=== PATIENT | female | born 1940 | race Caucasian/White ===

== ENCOUNTER 2024-01-22 22:29 | Emergency (ER) | payer MEDICARE, OTHER, SELFPAY ==
[2024-01-22 22:30] VITALS: BMI 40.9
[2024-01-22 22:33] VITALS: BP 159/79
[2024-01-23] VITALS (9 sets, daily range): BP systolic 124–150; BP diastolic 65–110
[2024-01-23 02:13] LABS: % Basophils 0.7 % (0-2); % Eosinophils 0.3 % (0-6); % Immature Granulocytes 0.4 % (0-0.5); % Lymphocytes 22.3 % (20.5-51.1); % Monocytes 12.4 % (1.7-9.3); % Neutrophils 63.9 % (42.2-75.2); Absolute Basophils 0.1 10^3/uL (0-0.2); Absolute Lymphocytes 1.6 10^3/uL (1.2-3.4); Absolute Monocytes 0.9 10^3/uL (0.1-0.6); Absolute Neutrophils 4.6 10^3/uL (1.4-6.5); Hematocrit 34.7 % (37.0-47.0); Hemoglobin 10.6 g/dL (12.0-16.0); Mean Corp Hgb Conc. 30.5 g/dL (33.0-37.0); Mean Corpuscular Hgb 26.2 pg (27.0-31.0); Mean Corpuscular Volume 85.9 fL (81.0-99.0); Mean Platelet Volume 9.5 fL (7.4-10.4); Nucleated Red Blood Cells % 0 %; Platelet Count 264 10^3/uL (130-400); Red Blood Cell Count 4.04 10^6/uL (4.20-5.40); Red Cell Dist. Width 20.2 % (11.5-14.5); White Blood Cell Count 7.2 10^3/uL (4.8-10.8)
[2024-01-23 02:35] LABS: NT-proBNP 298 pg/ml
[2024-01-23 03:44] LABS: ALT (SGPT) 13 U/L (0-35); AST (SGOT) 19 U/L (14-36); Albumin 3.3 g/dl (3.5-5.0); Alkaline Phosphatase 84 U/L (38-126); Blood Urea Nitrogen 25 mg/dl (7-17); Calcium 8.3 mg/dl (8.4-10.2); Chloride 94 mmol/L (98-107); Estimated Creatinine Clearance 29 ml/min; Glucose 91 mg/dl (70-99); Sodium 139 mmol/L (135-145); Total Bilirubin 0.5 mg/dl (0.2-1.3); Total Protein 5.7 g/dl (6.3-8.2)
[2024-01-23 03:53] LABS: Carbon Dioxide 36 mmol/L (22-30)
--- NOTE | 2024-01-23 04:14 | ED.GENMED ---
History of Present Illness
<DEEJAY Quinonez - Last Filed: 01/23/24 22:57>
General
Chief Complaint: Swelling
Source: patient
Exam Limitations: dementia
Time Seen by Provider: 01/23/24 03:35
Nursing documentation reviewed up to this point in time: agreed with
Travel History
Have you had any contact with someone who has COVID-19?: No
Do you have any symptoms of coronavirus? Fever > 100 degrees, chills, cough, shortness of breath, sore throat, loss of taste or smell, muscle aches, or headache?: No
History of Present Illness
History of Present Illness:
patient is a 83 y/o female with PMH of dementia and CHF presenting for a 3lb weight gain over 24 hours. Patient admits that LE swelling has gotten worse over the last few weeks along with leg erythema. patient denies CP, SOB, MORALES, abdominal pain, or
N/V/D/C. Patient is not a reliable historian.
Past History
<DEEJAY Quinonez - Last Filed: 01/23/24 22:57>
Past History
ED Past Medical History: Asthma, CAD, GERD, HTN, Hypercholesterolemia, NIDDM, [place], Hypothyroidism and Other (melanoma,fibromyalgia, skin CA on face removed)
ED Past Surgical History: Orthopedic (Total knee surgery, right and left, carpal full release right and left, rotator cuff repair on the right) and Other (melanoma resection, and umbilical hernia repair, right ant. chest port)
Social History
Tobacco: Non-smoker
Alcohol: Occasional
Drug: None
Personal:
Living: correction
Employment: Employed
Review of Systems
<DEEJAY Quinonez - Last Filed: 01/23/24 22:57>
Review of Systems
Unable to obtain full review of systems at this time due to: dementia
Constitutional: Reports weight gain
Respiratory: Reports no symptoms
Cardiac: Reports no symptoms
ABD/GI: Reports no symptoms
Musculoskeletal: Reports edema
Skin: Reports other (LE redness)
Phy Exam
<DEEJAY Quionnez - Last Filed: 01/23/24 22:57>
Physical Exam
Physical Exam:
swelling to B/L LE
Cardiovascular Exam
Cardiovascular Exam: other (edema b/l LE )
Pulmonary Exam
Pulmonary Exam: other (cough and SOB )
Skin Exam
Skin Exam: erythema, tenderness, warmth and other (edema )
Scores
<DEEJAY Quinonez - Last Filed: 01/23/24 22:57>
Heart Failure Risk
Heart Failure Risk Score: Yes
History of Stroke or TIA: No
History of intubation for respiratory distress: No
Heart rate on ED arrival >/= 110: No
SaO2 <90% on arrival on room air: No
Troponin I or T elevated to [place] Level (0.4mg/dL): No
NT-proBNP >/=5,000ng/L (5,000pg/ml): No
HF Risk Score: 2
Admission Status: MEDIUM RISK 9.2% Consider observation or discharge to home with homecare & f/u visit to PCP/Doffer, or SNF for treatment
<Jeff Smith DO - Last Filed: 01/23/24 06:49>
Heart Failure Risk
HR >/=110 during 3min walk test (or too ill to perform test): No
ECG has acute ischemic changes: No
Urea >/=12mmol/L (BUN 33.6mg/dL): No
Serum CO2>/=35mmol/L: Yes
Course
<DEEJAY Quinonez - Last Filed: 01/23/24 22:57>
Orders/Labs/Results
Orders:
Orders
01/22/24 22:35
Complete Blood Count/With Diff Urgent
NT-proBNP Urgent
01/22/24 22:36
EKG- Treatment ONCE
01/23/24 01:02
Electrocardiogram (*1) Stat
Comment: ALREADY DONE IN ED
01/23/24 02:06
Troponin I Urgent
Comment: ADD ON
01/23/24 03:21
Comprehensive Metabolic Panel Urgent
Comment: REDRAW
01/23/24 04:22
CR Chest - 2 Views Urgent
Comment:
Reason For Exam: chf
01/23/24 06:41
Torsemide [Demadex] 10 mg PO NOW STA
01/23/24 06:42
Potassium Chloride 10% Elixir [KCl Elixir] 40 meq PO NOW STA
01/23/24 06:49
Add On- LAB Urgent
Tests Added?: troponin
01/23/24 07:20
Torsemide [Demadex] 10 mg PO NOW STA
Abnormal Lab Results
01/23/24 01/23/24
02:06 03:21
RBC 4.04 L 10^6/uL
(4.20-5.40)
Hgb 10.6 L g/dL
(12.0-16.0)
Hct 34.7 L %
(37.0-47.0)
MCH 26.2 L pg
(27.0-31.0)
MCHC 30.5 L g/dL
(33.0-37.0)
RDW 20.2 H %
(11.5-14.5)
Absolute Monos (auto) 0.9 H 10^3/uL
(0.1-0.6)
Monocytes % 12.4 H %
(1.7-9.3)
Potassium 3.0 L mmol/L
(3.5-5.1)
Chloride 94 L mmol/L
(98-107)
Carbon Dioxide 36 H mmol/L
(22-30)
BUN 25 H mg/dl
(7-17)
Creatinine 1.4 H mg/dL
(0.6-1.0)
Calcium 8.3 L mg/dl
(8.4-10.2)
Total Protein 5.7 L g/dl
(6.3-8.2)
Albumin 3.3 L g/dl
(3.5-5.0)
01/23/24 02:06
01/23/24 03:21
Vital Signs
Initial and Last Documented VS:
Initial Vital Signs
Temp Pulse Resp BP Pulse Ox
98.2 F 77 24 159/79 94
01/22/24 22:33 01/22/24 22:33 01/22/24 22:33 01/22/24 22:33 01/22/24 22:33
Last Documented Vital Signs
Temp Pulse Resp BP Pulse Ox
97.6 F 80 16 150/66 97
01/23/24 07:47 01/23/24 08:15 01/23/24 07:47 01/23/24 08:00 01/23/24 08:15
<Jeff Smith, DO - Last Filed: 01/23/24 06:49>
Orders/Labs/Results
Orders:
Orders
01/22/24 22:35
Complete Blood Count/With Diff Urgent
NT-proBNP Urgent
01/22/24 22:36
EKG- Treatment ONCE
01/23/24 01:02
Electrocardiogram (*1) Stat
Comment: ALREADY DONE IN ED
01/23/24 02:06
Troponin I Urgent
Comment: ADD ON
01/23/24 03:21
Comprehensive Metabolic Panel Urgent
Comment: REDRAW
01/23/24 04:22
CR Chest - 2 Views Urgent
Comment:
Reason For Exam: chf
01/23/24 06:41
Torsemide [Demadex] 10 mg PO NOW STA
01/23/24 06:42
Potassium Chloride 10% Elixir [KCl Elixir] 40 meq PO NOW STA
01/23/24 06:49
Add On- LAB Urgent
Tests Added?: troponin
01/23/24 07:20
Torsemide [Demadex] 10 mg PO NOW STA
Abnormal Lab Results
01/23/24 01/23/24
02:06 03:21
RBC 4.04 L 10^6/uL
(4.20-5.40)
Hgb 10.6 L g/dL
(12.0-16.0)
Hct 34.7 L %
(37.0-47.0)
MCH 26.2 L pg
(27.0-31.0)
MCHC 30.5 L g/dL
(33.0-37.0)
RDW 20.2 H %
(11.5-14.5)
Absolute Monos (auto) 0.9 H 10^3/uL
(0.1-0.6)
Monocytes % 12.4 H %
(1.7-9.3)
Potassium 3.0 L mmol/L
(3.5-5.1)
Chloride 94 L mmol/L
(98-107)
Carbon Dioxide 36 H mmol/L
(22-30)
BUN 25 H mg/dl
(7-17)
Creatinine 1.4 H mg/dL
(0.6-1.0)
Calcium 8.3 L mg/dl
(8.4-10.2)
Total Protein 5.7 L g/dl
(6.3-8.2)
Albumin 3.3 L g/dl
(3.5-5.0)
01/23/24 02:06
01/23/24 03:21
Vital Signs
Initial and Last Documented VS:
Initial Vital Signs
Temp Pulse Resp BP Pulse Ox
98.2 F 77 24 159/79 94
01/22/24 22:33 01/22/24 22:33 01/22/24 22:33 01/22/24 22:33 01/22/24 22:33
Last Documented Vital Signs
Temp Pulse Resp BP Pulse Ox
97.6 F 80 16 150/66 97
01/23/24 07:47 01/23/24 08:15 01/23/24 07:47 01/23/24 08:00 01/23/24 08:15
<DEEJAY Quinonez - Last Filed: 01/23/24 22:57>
MDM/Problems Addressed
Differential Diagnosis Includes:
CHF exacerbation
nephrotic syndrome
CKD
MDM/Problems Addressed:
swelling x 1 month
Chronic conditions affecting care: Other (CHF and Dementia )
<DEEJAY Quinonez - Last Filed: 01/23/24 22:57>
*Critical Care Note
Total Time (30-74mins, 75-104mins- exclusive of procedures): Not Applicable
ED Attending Note
<DEEJAY Quinonez - Last Filed: 01/23/24 22:57>
-
Portions of this chart may have been created with voice recognition software.� Occasional wrong word or��sound alike� substitutions may have occurred due to the inherent limitations of voice recognition software.
<Jeff Smith DO - Last Filed: 01/23/24 06:49>
ED Attending Note
Patient seen and examined by attending physician: Yes
I performed the substantive portion of visit, reviewed & personally made and approve the management plan that is documented in note by myself or ZENAIDA.: Yes
ED Attending Note:
Pleasant 83-year-old female that presents with 3 pound weight gain for the last 24 hours. Patient does have a history of dementia so history is limited. She is a resident of [facility] who sent her in for evaluation. Patient does have
chronic peripheral vascular disease and edema in the bilateral lower extremities. Patient states that she has no pain. She reports no chest pain shortness of breath or abdominal pain. She states that she is no other symptoms. Patient was seen in
conjunction with the PA student. I have reviewed and agree with the history and treatment plan presented. On my independent physical exam, patient is awake, and at baseline. Able to answer some questions. Lower extremities are erythematous and
edematous. There is no signs of new cellulitis.
White blood cell count is normal.
Patient to be discharged back to [facility]. She has no complaints. Her oxygen saturation is greater than 96% on room air.
Discharge Plan
Departure
Patient Disposition: Long Term/SNF
Date of Disposition: 01/23/24
Time of Disposition: 06:48
Condition: Fair
Discharge Problem:
CKD (chronic kidney disease), stage III, Edema
Prescriptions:
No Action
metoprolol succinate 100 MG tablet extended release 24 hr
100 mg PO HS
atorvastatin 20 MG tablet
20 mg PO HS
allopurinol 100 MG tablet
100 mg PO DAILY
gabapentin 300 MG capsule
600 mg PO HS
gabapentin 300 MG capsule
300 mg PO DAILY@1400
albuterol sulfate 1 PUFF HFA aerosol inhaler
2 puff inhalation R Q6HPRN PRN (Reason: sob/wheezing)
loperamide 2 MG capsule
2 mg PO [id number] PRN (Reason: diarrhea)
melatonin 3 MG tablet
9 mg PO HS
acetaminophen [Tylenol Extra Strength] 500 MG tablet
1,000 mg PO TID
magnesium hydroxide 30 ML suspension
30 ml PO DAILYPRN PRN (Reason: if no bm in 2 days)
bisacodyl 10 MG suppository
10 mg GA DAILYPRN PRN (Reason: if no bm on 3rd day)
insulin lispro [Humalog KwikPen Insulin] 100 UNIT/ML insulin pen
0 units SC AC
Rx Instructions:
Sliding scale: 150-200 = 2 units; 201-250 = 4 units; 251-300 = 6 units; 301-350 = 8 units; 351-400 = 10 units
levothyroxine 112 MCG tablet
112 mcg PO DAILY@07
insulin glargine [Lantus Solostar U-100 Insulin] 300 UNITS/3 ML insulin pen
6 units SC HS Qty: 0 0RF
torsemide 20 mg Tablet
20 mg PO DAILY
miconazole nitrate [Desenex] 2 % Powder
1 applic TOPICAL BIDPRN PRN (Reason: skin rash)
Aquaphor Ointment
1 applic TOPICAL [id number] PRN (Reason: b/l lower extremities dry skin)
Rx Instructions:
apply to B/L extremities
famotidine 20 mg Tablet
20 mg PO DAILY
diphenhydramine HCl 25 mg Tablet
25 mg PO [id number] PRN (Reason: allergies)
diclofenac sodium 1 % Gel
2 g TOPICAL Q6HPRN PRN (Reason: right hip)
cholecalciferol (vitamin D3) 1,250 mcg (50,000 unit) Tablet
1,250 mcg PO TH@08
potassium chloride 20 mEq Tablet Extended Release
20 meq PO DAILY
Lactobacillus acidophilus 1 EACH tablet
1 ea PO DAILY
hydrocortisone [Preparation H Hydrocortisone] 1 % Cream
1 applic TOPICAL Q6HPRN PRN (Reason: hemorrhiods)
Calazime Paste
1 applic topical BID
Reguloid 51.7% Powder
0.5 tbsp PO DAILY
prednisone 10 mg tablets,dose pack
10 mg PO DAILY
miconazole nitrate [Miconazorb AF] 2 % Powder
1 applic topical BID Qty: 0 0RF
metronidazole 500 mg Tablet
500 mg PO TID 1 Days Qty: 0 0RF
cefdinir 300 mg Capsule
300 mg PO Q12 1 Days Qty: 2 0RF
oxycodone 5 MG tablet
5 mg PO Q4HPRN PRN (Reason: moderate pain) Qty: 12 0RF
Referrals:
Jeff Hu CRNP [Family Provider] -
Interventions
Interventions:
*Risk Screen - Suicide Last Done: 01/22/24 22:33
*General Assessment Last Done: 01/22/24 22:33
*Neglect/Abuse Screening Last Done: 01/22/24 22:33
ED- Fall Risk Assessment Last Done: 01/23/24 07:47
*ED COVID-19 Vaccine History Last Done: 01/23/24 07:47
*Nursing Disposition Last Done: 01/23/24 08:40
ED- Cardiac Assessment Last Done: 01/23/24 07:47
ED- Pulmonary Assessment Last Done: 01/23/24 07:47
ED-Skin Assessment Last Done: 01/23/24 07:47
Discharge Date and Time
Discharge Date/Time: 01/23/24 08:40
[2024-01-23 07:21] LABS: Troponin I < 0.012 ng/ml
[2024-01-23] MEDS: KCL ELIXIR 40 MEQ PO (07:38)
[2024-01-23] MEDS: DEMADEX 10 MG PO (07:38)
--- NOTE | 2024-01-23 07:57 | EDRN ---
the pt is resting in stretcher in the lowest position, side rails up x2, call caraballo within reach, HOB elevated, no c/o chest pain, no c/o SOB, VS WNL, film processing shift supervisor nurse stated that while the pt was sleeping she desatted to 89-90% and placed the pt on
1L NC, this RN titrated [address] Smith was notified, the pts Sp02 is 97% on RA, no s/s of distress, PIV's discontinued and IV team was called and at the pts bedside to removed RCW Port, pt has limb alert on LUE, awaiting for transport to
arrive for the pt, will continue to monitor the pt closely
--- NOTE | 2024-01-23 08:39 | EDRN ---
this RN attempted to call verbal report to [facility] at [phone] and there was no answer, verbal report given to [facility] staff, discharge papers sent with the pt
== END 2024-01-23 08:40 ==
LOC: EMR 22:29
PROVIDERS: Emergency Medicine; EMERGENCY PHYSICIAN Student in an Organized Health Care Education/Training Program; FAMILY PHYSICIAN Nurse Practitioner Family
DX: N18.30 Chronic kidney disease, stage 3 unspecified (principal); R60.0 Localized edema; I50.9 Heart failure, unspecified; F03.90 Unspecified dementia, unspecified severity, without behavioral disturbance, psychotic disturbance, mood disturbance, and anxiety
CPT/HCPCS: 99285; 71046; 80053; 83880; 84484; 85025; 93005

== ENCOUNTER → 2024-01-31 10:47 | Outpatient (REF) | payer MEDICARE, OTHER, SELFPAY ==
[2024-01-31 11:38] LABS: Hematocrit 33.5 % (37.0-47.0); Hemoglobin 9.8 g/dL (12.0-16.0); Mean Corp Hgb Conc. 29.3 g/dL (33.0-37.0); Mean Corpuscular Hgb 26.3 pg (27.0-31.0); Mean Corpuscular Volume 90.1 fL (81.0-99.0); Mean Platelet Volume 11.1 fL (7.4-10.4); Platelet Count 264 10^3/uL (130-400); Red Blood Cell Count 3.72 10^6/uL (4.20-5.40); Red Cell Dist. Width 19.8 % (11.5-14.5)
[2024-01-31 12:29] LABS: ALT (SGPT) 13 U/L (0-35); AST (SGOT) 21 U/L (14-36); Albumin 3.1 g/dl (3.5-5.0); Alkaline Phosphatase 74 U/L (38-126); Blood Urea Nitrogen 22 mg/dl (7-17); Calcium 8.5 mg/dl (8.4-10.2); Carbon Dioxide 35 mmol/L (22-30); Chloride 96 mmol/L (98-107); Glucose 86 mg/dl (70-99); Potassium 3.6 mmol/L (3.5-5.1); Sodium 137 mmol/L (135-145); Total Bilirubin 0.4 mg/dl (0.2-1.3); Total Protein 5.5 g/dl (6.3-8.2); eGFR 41.31
== END ==
LOC: OLABWHC 10:47
PROVIDERS: ATTENDING PHYSICIAN Family Medicine
DX: A41.9 Sepsis, unspecified organism (principal); E87.6 Hypokalemia; E11.9 Type 2 diabetes mellitus without complications
CPT/HCPCS: 36415; 80053; 85027

== ENCOUNTER 2024-03-06 22:38 | Emergency (ER) | payer MEDICARE, OTHER, SELFPAY ==
[2024-03-06 22:41] VITALS: BP 111/80
[2024-03-06 22:42] VITALS: BP 111/80; BMI 39.6
[2024-03-06 22:59] LABS: % Basophils 0.2 % (0-2); % Eosinophils 0.1 % (0-6); % Immature Granulocytes 0.4 % (0-0.5); % Lymphocytes 14.4 % (20.5-51.1); % Monocytes 9.1 % (1.7-9.3); % Neutrophils 75.8 % (42.2-75.2); Absolute Immature Granulocytes 0.1 10^3/uL (0-0.05); Absolute Lymphocytes 1.8 10^3/uL (1.2-3.4); Absolute Monocytes 1.2 10^3/uL (0.1-0.6); Absolute Neutrophils 9.7 10^3/uL (1.4-6.5); Hematocrit 37.2 % (37.0-47.0); Mean Corp Hgb Conc. 29.6 g/dL (33.0-37.0); Mean Corpuscular Hgb 28.1 pg (27.0-31.0); Mean Corpuscular Volume 94.9 fL (81.0-99.0); Mean Platelet Volume 9.7 fL (7.4-10.4); Nucleated Red Blood Cells % 0 %; Platelet Count 261 10^3/uL (130-400); Red Blood Cell Count 3.92 10^6/uL (4.20-5.40); Red Cell Dist. Width 18.2 % (11.5-14.5); White Blood Cell Count 12.8 10^3/uL (4.8-10.8)
[2024-03-06 23:01] LABS: Urine Albumin Negative (Neg - Trace); Urine Bilirubin Negative (Negative); Urine Character Clear (Clear); Urine Color Yellow; Urine Glucose Negative (Negative); Urine Ketone Negative (Negative); Urine Leukocyte 2+ (Negative); Urine Nitrite Negative (Negative); Urine Occult Blood 1+ (Negative); Urine Urobilinogen Negative (Neg - 1+)
[2024-03-06 23:08] LABS: Urine Squamous Cell 0-2 /LPF (Few)
[2024-03-06 23:09] LABS: Urine Bacteria Few (Negative)
[2024-03-06 23:10] LABS: Urine White Cell 50-60 /HPF (0-5)
[2024-03-06 23:19] LABS: ALT (SGPT) 20 U/L (0-35); AST (SGOT) 22 U/L (14-36); Albumin 3.5 g/dl (3.5-5.0); Alkaline Phosphatase 112 U/L (38-126); Blood Urea Nitrogen 25 mg/dl (7-17); Calcium 8.3 mg/dl (8.4-10.2); Carbon Dioxide 33 mmol/L (22-30); Chloride 101 mmol/L (98-107); Estimated Creatinine Clearance 34 ml/min; Glucose 107 mg/dl (70-99); Potassium 3.4 mmol/L (3.5-5.1); Sodium 141 mmol/L (135-145); Total Bilirubin 0.5 mg/dl (0.2-1.3); Total Protein 6.1 g/dl (6.3-8.2); eGFR 50.48
--- NOTE | 2024-03-06 23:47 | ED.GENMED ---
Addendum entered and electronically signed by Masoud eDlgado PA-C 03/09/24 07:53:
Urine culture shows greater than 100,000 colony-forming units of gram-negative bacilli. On cefuroxime. Sensitivities pending
Original Note:
History of Present Illness
General
Chief Complaint: Change in Mental Status
Source: records and ambulance crew
Time Seen by Provider: 03/06/24 23:37
Travel History
Have you had any contact with someone who has COVID-19?: No
Do you have any symptoms of coronavirus? Fever > 100 degrees, chills, cough, shortness of breath, sore throat, loss of taste or smell, muscle aches, or headache?: No
History of Present Illness
History of Present Illness:
83-year-old female presenting to the emergency department for evaluation from [facility] due to reported mental status change. Patient with a history of dementia and is currently unable to provide me with any history. I attempted to
call [facility] for history but no one was answering the phone when I was calling. EMS reports same history as above.
Past History
Past History
ED Past Medical History: Asthma, CAD, GERD, HTN, Hypercholesterolemia, NIDDM, [place], Hypothyroidism and Other (melanoma,fibromyalgia, skin CA on face removed)
ED Past Surgical History: Orthopedic (Total knee surgery, right and left, carpal full release right and left, rotator cuff repair on the right) and Other (melanoma resection, and umbilical hernia repair, right ant. chest port)
Social History
Tobacco: Non-smoker
Alcohol: None
Drug: None
Personal:
Living: [facility]
Employment: Employed
Review of Systems
Review of Systems
All Other Systems: ROS reviewed and negative except as documented in HPI and ROS
Phy Exam
Physical Exam
Physical Exam:
GENERAL: Alert , in no apparent distress
EYE: conjunctiva clear
NECK: Supple
ENT: o/p clr, mmm.
CARDIAC: Regular rate and rhythm
LUNGS: Clear breath sounds bilaterally, no acute respiratory distress, no wheezes/rales/rhonchi
Abdomen: Soft, nontender, nondistended
NEUROLOGICAL: Alert and oriented to person and place but not time
SKIN: Warm and dry, skin intact.
MUSCULOSKELETAL: well perfused.
PSYCH: Normal and appropriate interaction.
Scores
Heart Failure Risk
Heart Failure Risk Score: Not Applicable
Heart Score for Chest Pain Patients
STEMI patient?: Not applicable
Withdrawal Assessment of Alcohol
Withdrawal Assessment Completed?: Not applicable
Course
Orders/Labs/Results
Orders:
Orders
03/06/24 22:41
Cardiac Monitoring- Treatment ONCE
03/06/24 22:47
CMP [Comprehensive Metabolic Panel] Urgent
Complete Blood Count/With Diff Urgent
Urinalysis Reflex To Culture Urgent
Date Specimen was Collected: 03/06/24
Time Specimen was Collected: 22:41
Urine Microscopic Reflex Cult Urgent
Urine Culture Urgent
CRYSTAL Source: U
Specimen Description:
Date Specimen was Collected: 03/06/24
Time Specimen was Collected: 22:41
03/06/24 23:55
Cefuroxime Axetil [Ceftin] 500 mg PO NOW STA
Abnormal Lab Results
03/06/24
22:47
WBC 12.8 H 10^3/uL
(4.8-10.8)
RBC 3.92 L 10^6/uL
(4.20-5.40)
Hgb 11.0 L g/dL
(12.0-16.0)
MCHC 29.6 L g/dL
(33.0-37.0)
RDW 18.2 H %
(11.5-14.5)
Abs Immat Gran (auto) 0.1 H 10^3/uL
(0-0.05)
Absolute Neuts (auto) 9.7 H 10^3/uL
(1.4-6.5)
Absolute Monos (auto) 1.2 H 10^3/uL
(0.1-0.6)
Neutrophils % 75.8 H %
(42.2-75.2)
Lymphocytes % 14.4 L %
(20.5-51.1)
Potassium 3.4 L mmol/L
(3.5-5.1)
Carbon Dioxide 33 H mmol/L
(22-30)
BUN 25 H mg/dl
(7-17)
Creatinine 1.1 H mg/dL
(0.6-1.0)
Glucose 107 H mg/dl
(70-99)
Calcium 8.3 L mg/dl
(8.4-10.2)
Total Protein 6.1 L g/dl
(6.3-8.2)
Ur Occult Blood Reflex 1+ A
(Negative)
Leukocyte Esterase Rfl 2+ A
(Negative)
Urine RBC 3-6 A /HPF
(0-2)
Urine WBC (Reflex) 50-60 A /HPF
(0-5)
Urine Bacteria (Reflex) Few A
(Negative)
03/06/24 22:47
03/06/24 22:47
Vital Signs
Initial and Last Documented VS:
Initial Vital Signs
BP
111/80
03/06/24 22:41
Last Documented Vital Signs
Temp Pulse Resp BP Pulse Ox
97.5 F 88 17 111/80 92
03/06/24 22:42 03/06/24 23:45 03/06/24 23:45 03/06/24 22:42 03/06/24 23:45
MDM/Problems Addressed
Differential Diagnosis Includes:
Dementia, urinary tract infection, pneumonia, viral etiology, electrolyte disturbance
MDM/Problems Addressed:
83-year-old female presenting the emergency department from [facility], known dementia with reported mental status change. Is unclear as to what exactly the mental status change is. Labs and urine were ordered from triage. Patient has
a mild leukocytosis with a leftward shift. Patient's urinalysis shows 2+ leukocytes and 50-60 WBCs likely signifying a urinary tract infection. Patient has 2 previous urine cultures on record here in 2022 with 1 growing Pseudomonas aeruginosa and
another growing E. coli and Proteus. I reviewed these culture reports and it appears patient is sensitive to cephalosporins so we will treat patient with a 10-day course of cefuroxime. First dose to be given tonight prior to discharge. I again
attempted to contact [facility] to discuss findings in the ER but no one picked up the phone so unable to leave report with nursing team. Patient to be transported back to [facility] this evening. She otherwise remained stable.
Chronic conditions affecting care: Neurological disorder
Acute Exacerbation and/or Progression of Chronic Illness: Neurological disorder
*Pulse Oximetry
Patient hypoxic: no
*Critical Care Note
Total Time (30-74mins, 75-104mins- exclusive of procedures): Not Applicable
Data Reviewed
Review of Other/Old Records Reveals: Labs and Records
Source: records
ED Attending Note
-
Portions of this chart may have been created with voice recognition software.� Occasional wrong word or��sound alike� substitutions may have occurred due to the inherent limitations of voice recognition software.
Discharge Plan
Departure
Patient Disposition: [facility]/SNF
Date of Disposition: 03/06/24
Time of Disposition: 23:47
Patient with high blood pressure during this ER visit?: No
Discharge Problem:
Acute UTI, CKD (chronic kidney disease)
Instructions: Urinary Tract Infection, Adult (DC)
Prescriptions:
New
cefuroxime axetil 500 mg tablet
500 mg PO BID Qty: 19 0RF
No Action
metoprolol succinate 100 MG tablet extended release 24 hr
100 mg PO HS
atorvastatin 20 MG tablet
20 mg PO HS
allopurinol 100 MG tablet
100 mg PO DAILY
gabapentin 300 MG capsule
600 mg PO HS
gabapentin 300 MG capsule
300 mg PO DAILY@1400
albuterol sulfate 1 PUFF HFA aerosol inhaler
2 puff inhalation R Q6HPRN PRN (Reason: sob/wheezing)
loperamide 2 MG capsule
2 mg PO [id number] PRN (Reason: diarrhea)
melatonin 3 MG tablet
9 mg PO HS
acetaminophen [Tylenol Extra Strength] 500 MG tablet
1,000 mg PO TID
magnesium hydroxide 30 ML suspension
30 ml PO HSPRN PRN (Reason: if no bm in 2 days)
bisacodyl 10 MG suppository
10 mg VA DAILYPRN PRN (Reason: if no bm on 3rd day)
insulin lispro [Humalog KwikPen Insulin] 100 UNIT/ML insulin pen
0 - 10 units SC AC
Patient Comments:
03/06/2024: Sliding scale: if 0-149= 0 units; 150-200 = 2 units; 201-250 = 4 units; 251-300 = 6 units; 301-350 = 8 units; 351-400 = 10 units
levothyroxine 112 MCG tablet
112 mcg PO DAILY@07
insulin glargine [Lantus Solostar U-100 Insulin] 300 UNITS/3 ML insulin pen
6 units SC HS Qty: 0 0RF
torsemide 20 mg Tablet
40 mg PO DAILY
famotidine 20 mg Tablet
20 mg PO DAILY
diphenhydramine HCl 25 mg Tablet
25 mg PO [id number] PRN (Reason: allergies)
diclofenac sodium 1 % Gel
4 g TOPICAL Q6HPRN PRN (Reason: right hip)
potassium chloride 20 mEq Tablet Extended Release
20 meq PO DAILY
hydrocortisone [Preparation H Hydrocortisone] 1 % Cream
1 applic TOPICAL Q6HPRN PRN (Reason: hemorrhiods)
Calazime Paste
1 applic topical BID
Patient Comments:
03/06/2024: apply to vaginal excoriation
Reguloid 51.7% Powder
0.5 tbsp PO DAILY
prednisone 10 mg tablets,dose pack
10 mg PO DAILY
oxycodone 5 MG tablet
5 mg PO Q4HPRN PRN (Reason: moderate pain) Qty: 12 0RF
mineral oil-hydrophil petrolat Ointment
1 applic TOPICAL BID
Patient Comments:
03/06/2024: apply to B/L LE
Fleet Enema 19-7 gram/118 mL Enema
118 ml VA DAILYPRN PRN (Reason: if no bm x 4 days)
nystatin 100,000 unit/gram Powder
1 applic TOPICAL [id number] PRN (Reason: rash)
Multiple Vitamin-Minerals Tablet
1 tab PO DAILY
Balmex Ointment
1 ea TOPICAL TID
Patient Comments:
03/06/2024: apply to sacrum and buttocks
cholecalciferol (vitamin D3) 125 mcg (5,000 unit) Tablet
125 mcg PO DAILY
acidophilus-pectin, citrus 7.5 mg (30 mill cell)-100 mg Capsule
1 cap PO DAILY
Interventions
Interventions:
*Risk Screen - Suicide Last Done: 03/06/24 22:42
*General Assessment Last Done: 03/06/24 22:42
*Neglect/Abuse Screening Last Done: 03/06/24 22:42
ED- Fall Risk Assessment Last Done: 03/06/24 23:48
*ED COVID-19 Vaccine History Last Done: 03/06/24 22:42
ED- Neurological Assessment Last Done: 03/06/24 23:48
ED- Cardiac Assessment Last Done: 03/06/24 23:48
Discharge Date and Time
Print Language: TANZANIAN
[2024-03-07] MEDS: CEFTIN 500 MG PO (00:19)
--- NOTE | 2024-03-07 01:00 | EDRN ---
Patient sleeping without and concerns, report given to the correction
--- NOTE | 2024-03-10 07:30 | ED.ADDNOTE ---
ED Addendum
ED Addendum
ED Addendum Note:
Urine culture finalized Proteus sensitive to the antibiotic she is on no treatment change required
== END 2024-03-07 01:56 ==
LOC: EMR 22:38
PROVIDERS: Emergency Medicine; EMERGENCY PHYSICIAN Emergency Medicine; FAMILY PHYSICIAN Family Medicine
DX: N39.0 Urinary tract infection, site not specified (principal); N18.9 Chronic kidney disease, unspecified; F03.90 Unspecified dementia, unspecified severity, without behavioral disturbance, psychotic disturbance, mood disturbance, and anxiety
CPT/HCPCS: 99283; 80053; 81003; 81015; 85025; 87077; 87086; 87186

== ENCOUNTER 2024-03-21 08:13 | Outpatient (RCR) | payer MEDICARE, OTHER, SELFPAY | END 2024-03-21 23:59 | disposition home or self-care (01) | LOC: RPT 08:13 | PROVIDERS: ATTENDING PHYSICIAN Family Medicine | DX: I89.0 Lymphedema, not elsewhere classified (principal); I87.313 Chronic venous hypertension (idiopathic) with ulcer of bilateral lower extremity; R26.2 Difficulty in walking, not elsewhere classified | CPT/HCPCS: 97163; 97530; 97760 ==

== ENCOUNTER → 2024-06-12 12:02 | Outpatient (REF) | payer MEDICARE, OTHER, SELFPAY ==
[2024-06-12 14:51] LABS: Hematocrit 31.2 % (37.0-47.0); Mean Corp Hgb Conc. 28.8 g/dL (33.0-37.0); Mean Corpuscular Hgb 26.3 pg (27.0-31.0); Mean Corpuscular Volume 91.2 fL (81.0-99.0); Mean Platelet Volume 10.2 fL (7.4-10.4); Platelet Count 317 10^3/uL (130-400); Red Blood Cell Count 3.42 10^6/uL (4.20-5.40); Red Cell Dist. Width 14.8 % (11.5-14.5); White Blood Cell Count 9.7 10^3/uL (4.8-10.8)
[2024-06-12 14:52] LABS: ALT (SGPT) 14 U/L (0-35); AST (SGOT) 17 U/L (14-36); Albumin 3.5 g/dl (3.5-5.0); Alkaline Phosphatase 98 U/L (38-126); Blood Urea Nitrogen 23 mg/dl (7-17); Calcium 8.9 mg/dl (8.4-10.2); Carbon Dioxide 34 mmol/L (22-30); Chloride 97 mmol/L (98-107); Glucose 93 mg/dl (70-99); HDL Cholesterol 51 mg/dl; LDL Cholesterol, Calculated 42 mg/dl; Potassium 3.4 mmol/L (3.5-5.1); Sodium 139 mmol/L (135-145); Total Bilirubin 0.3 mg/dl (0.2-1.3); Total Cholesterol 133 mg/dl (50-199); Total Protein 5.6 g/dl (6.3-8.2); Triglyceride 203 mg/dl (10-149); Very Low Density Lipoprotein 40 mg/dl (0-30); eGFR 37.56
[2024-06-12 15:07] LABS: Free T4 1.62 ng/dl (0.78-2.19)
[2024-06-12 15:20] LABS: TSH 0.06 uIU/ml (0.47-4.68)
== END ==
LOC: OLABWHC 12:02
PROVIDERS: ATTENDING PHYSICIAN Family Medicine
DX: I10 Essential (primary) hypertension (principal); I25.10 Atherosclerotic heart disease of native coronary artery without angina pectoris; E03.9 Hypothyroidism, unspecified; D60.9 Acquired pure red cell aplasia, unspecified
CPT/HCPCS: 80053; 80061; 84439; 84443; 85027

== ENCOUNTER → 2024-06-15 10:55 | Outpatient (REF) | payer MEDICARE, OTHER, SELFPAY ==
[2024-06-15 12:19] LABS: Blood Urea Nitrogen 31 mg/dl (7-17); Calcium 8.9 mg/dl (8.4-10.2); Carbon Dioxide 38 mmol/L (22-30); Chloride 98 mmol/L (98-107); Glucose 88 mg/dl (70-99); Potassium 3.9 mmol/L (3.5-5.1); Sodium 140 mmol/L (135-145); eGFR 37.56
== END ==
LOC: OLABWHC 10:55
PROVIDERS: ATTENDING PHYSICIAN Family Medicine
DX: E11.9 Type 2 diabetes mellitus without complications (principal); E87.6 Hypokalemia; N18.4 Chronic kidney disease, stage 4 (severe); E78.5 Hyperlipidemia, unspecified; D64.9 Anemia, unspecified; Z79.4 Long term (current) use of insulin; I10 Essential (primary) hypertension; E03.9 Hypothyroidism, unspecified
CPT/HCPCS: 80048

== ENCOUNTER → 2024-08-07 13:25 | Outpatient (REF) | payer MEDICARE, OTHER, SELFPAY ==
[2024-08-07 19:07] LABS: Urine Albumin Negative (Neg - Trace); Urine Bilirubin Negative (Negative); Urine Character Clear (Clear); Urine Color Yellow; Urine Glucose 3+ (Negative); Urine Ketone Negative (Negative); Urine Leukocyte Trace (Negative); Urine Nitrite Negative (Negative); Urine Occult Blood Negative (Negative); Urine Urobilinogen Negative (Neg - 1+)
[2024-08-07 19:16] LABS: Urine Bacteria Moderate (Negative); Urine Red Blood Cell 0-2 /HPF (0-2)
== END ==
LOC: OLABWPC 13:25
PROVIDERS: ATTENDING PHYSICIAN Family Medicine
DX: R31.9 Hematuria, unspecified (principal)
CPT/HCPCS: 81003; 81015; 87077; 87086; 87186

== ENCOUNTER → 2024-08-15 10:35 | Outpatient (REF) | payer MEDICARE, OTHER, SELFPAY ==
[2024-08-15 11:19] LABS: Hemoglobin 8.6 g/dL (12.0-16.0); Mean Corp Hgb Conc. 29.7 g/dL (33.0-37.0); Mean Corpuscular Hgb 23.6 pg (27.0-31.0); Mean Corpuscular Volume 79.7 fL (81.0-99.0); Mean Platelet Volume 11.5 fL (7.4-10.4); Platelet Count 267 10^3/uL (130-400); Red Blood Cell Count 3.64 10^6/uL (4.20-5.40); Red Cell Dist. Width 15.8 % (11.5-14.5); White Blood Cell Count 10.4 10^3/uL (4.8-10.8)
[2024-08-15 11:58] LABS: Glycohemoglobin (HgbA1c) 7.3 % (4.0-5.6)
[2024-08-15 13:42] LABS: Blood Urea Nitrogen 30 mg/dl (7-17); Carbon Dioxide 28 mmol/L (22-30); Chloride 99 mmol/L (98-107); Glucose 81 mg/dl (70-99); Potassium 4.3 mmol/L (3.5-5.1); Sodium 141 mmol/L (135-145); eGFR 41.06
[2024-08-15 14:13] LABS: TSH Reflex To Free T4 0.22 uIU/ml (0.47-4.68)
== END ==
LOC: OLABWHC 10:35
PROVIDERS: ATTENDING PHYSICIAN Family Medicine
DX: E11.9 Type 2 diabetes mellitus without complications (principal); E03.9 Hypothyroidism, unspecified; D64.9 Anemia, unspecified
CPT/HCPCS: 36415; 80048; 83036; 84439; 84443; 85027

== ENCOUNTER → 2024-12-13 11:21 | Outpatient (REF) | payer MEDICARE, OTHER, SELFPAY ==
[2024-12-13 12:28] LABS: Hematocrit 27.3 % (37.0-47.0); Hemoglobin 7.1 g/dL (12.0-16.0); Mean Corpuscular Hgb 20.8 pg (27.0-31.0); Mean Corpuscular Volume 79.8 fL (81.0-99.0); Mean Platelet Volume 9.8 fL (7.4-10.4); Platelet Count 294 10^3/uL (130-400); Red Blood Cell Count 3.42 10^6/uL (4.20-5.40); Red Cell Dist. Width 17.2 % (11.5-14.5)
[2024-12-13 14:12] LABS: ALT (SGPT) 12 U/L (0-35); AST (SGOT) 15 U/L (14-36); Albumin 3.3 g/dl (3.5-5.0); Alkaline Phosphatase 96 U/L (38-126); Blood Urea Nitrogen 25 mg/dl (7-17); Calcium 8.7 mg/dl (8.4-10.2); Carbon Dioxide 36 mmol/L (22-30); Chloride 98 mmol/L (98-107); Glucose 98 mg/dl (70-99); HDL Cholesterol 49 mg/dl; LDL Cholesterol, Calculated 45 mg/dl; Potassium 3.7 mmol/L (3.5-5.1); Sodium 141 mmol/L (135-145); Total Bilirubin 0.5 mg/dl (0.2-1.3); Total Cholesterol 122 mg/dl (50-199); Total Protein 5.4 g/dl (6.3-8.2); Triglyceride 142 mg/dl (10-149); Very Low Density Lipoprotein 28 mg/dl (0-30); eGFR 45.19
[2024-12-13 14:30] LABS: Free T4 1.18 ng/dl (0.78-2.19); Vitamin D, 25-OH*** 86.6 ng/mL (30-80)
[2024-12-13 14:43] LABS: TSH 0.45 uIU/ml (0.47-4.68)
== END ==
LOC: OLABWHC 11:21
PROVIDERS: ATTENDING PHYSICIAN Family Medicine
DX: I10 Essential (primary) hypertension (principal); N18.4 Chronic kidney disease, stage 4 (severe); M50.30 Other cervical disc degeneration, unspecified cervical region; I25.10 Atherosclerotic heart disease of native coronary artery without angina pectoris; E03.9 Hypothyroidism, unspecified; D64.9 Anemia, unspecified
CPT/HCPCS: 36415; 80053; 80061; 82306; 84439; 84443; 85027

== ENCOUNTER 2024-12-15 13:05 | Emergency (ER) | payer MEDICARE, OTHER, SELFPAY ==
[2024-12-15] VITALS (9 sets, daily range): BP systolic 85–158; BP diastolic 54–80
--- NOTE | 2024-12-15 13:41 | ED.GENMED ---
History of Present Illness
General
Chief Complaint: Abnormal Lab Value
Source: patient, records and ambulance crew
Time Seen by Provider: 12/15/24 13:12
History of Present Illness
History of Present Illness:
84-year-old female with past medical history of mild dementia, hypertension, hyperlipidemia, CAD status postacute SD, chronic kidney disease, chronic iron deficiency anemia presenting to the emergency department for evaluation after she had blood
work done earlier earlier today which showed a hemoglobin of 6.8. Patient stating at time of my exam that she has no symptoms and feels that she is having a 'good day today'. Patient denies any chest pain, abdominal pain, nausea, vomiting, bowel
changes, known blood in the stool or dark stools, exertional dyspnea, orthopnea. Patient is not sure if she is on any anticoagulant medications. She is able to tell me she has had blood transfusions in the past but is unsure as to the last time
she had one. No other concerns at this time.
Past History
Past History
ED Past Medical History: Asthma, CAD, GERD, HTN, Hypercholesterolemia, NIDDM, SD, Hypothyroidism and Other (melanoma,fibromyalgia, skin CA on face removed)
ED Past Surgical History: Orthopedic (Total knee surgery, right and left, carpal full release right and left, rotator cuff repair on the right) and Other (melanoma resection, and umbilical hernia repair, right ant. chest port)
Social History
Tobacco: Non-smoker
Alcohol: None
Drug: None
Personal:
Living: [facility]
Employment: Employed
Review of Systems
Review of Systems
All Other Systems: ROS reviewed and negative except as documented in HPI and ROS
Phy Exam
Physical Exam
Physical Exam:
GENERAL: Alert , in no apparent distress
EYE: clear conjunctiva b/l
HEAD: NCAT
ENT: mmm.
CARDIAC: Regular rate and rhythm .
LUNGS: Clear breath sounds bilaterally, no acute respiratory distress, no wheezes/rales/rhonchi
ABDOMEN: Soft, without focal tenderness, no r/g, no cvat
RECTAL EXAM: Light brown stool, heme-negative
NEUROLOGICAL: Alert and oriented
SKIN: Warm and dry, skin intact.
MUSCULOSKELETAL: Trace nonpitting edema, mild erythema to LLE. well perfused otherwise.
PSYCH: Normal and appropriate interaction.
Scores
Heart Failure Risk
Heart Failure Risk Score: Not Applicable
Heart Score for Chest Pain Patients
STEMI patient?: Not applicable
Withdrawal Assessment of Alcohol
Withdrawal Assessment Completed?: Not applicable
Course
Orders/Labs/Results
Orders:
Orders
12/15/24 13:16
Blood Bank Products [* Blood Bank Products] Urgent
Blood Bank Products: *Packed RBC Leuko(PRBC's)
Quantity: 1
Transfuse Today: Yes
Reason: Anemia
12/15/24 13:48
Type+Screen Urgent
PTT Urgent
Prothrombin Time Urgent
Abnormal Lab Results
12/15/24
13:48
APTT 23.3 L Sec
(23.4-35.0)
Crossmatch IS Only See Detail
Vital Signs
Initial and Last Documented VS:
Initial Vital Signs
Temp Pulse Resp BP Pulse Ox
97.9 F 71 16 135/54 96
12/15/24 13:07 12/15/24 13:07 12/15/24 13:07 12/15/24 13:07 12/15/24 13:07
Last Documented Vital Signs
Temp Pulse Resp BP Pulse Ox
98.3 F 77 17 143/69 94
12/15/24 16:48 12/15/24 17:15 12/15/24 17:15 12/15/24 17:00 12/15/24 17:15
MDM/Problems Addressed
Differential Diagnosis Includes:
Anemia of chronic disease, iron deficiency anemia, macrocytic anemia
MDM/Problems Addressed:
84-year-old female presenting to the ER for evaluation of anemia, hemoglobin of 6.8 done earlier today. Patient with low MCV and has a history of iron deficiency anemia and this is the likely same cause. Patient has heme-negative stool that is
light brown making GI source much less likely. Patient is otherwise hemodynamically stable without any concerns. Will transfuse 1 unit and send back to [place] as patient is stable. I contacted patient's daughter via telephone and updated her on
these findings and daughter is in agreement with this treatment plan
Chronic conditions affecting care: Kidney disease
*Pulse Oximetry
Patient hypoxic: no
*Critical Care Note
Total Time (30-74mins, 75-104mins- exclusive of procedures): Not Applicable
Data Reviewed
Review of Other/Old Records Reveals: Labs and Records
Patient Management
Discussion with other providers: correction staff
Escalation/DeEscalation of care consider admission/obs:
Patient completed her transfusion without any difficulties. I contacted patient's nurse at [facility] and recommended patient have a repeat hemoglobin within the next 24 to 48 hours if possible. They are aware of return precautions to
the emergency department. Will arrange for transport for the patient back to [place].
ED Attending Note
-
Portions of this chart may have been created with voice recognition software.� Occasional wrong word or��sound alike� substitutions may have occurred due to the inherent limitations of voice recognition software.
Discharge Plan
Departure
Patient Disposition: Long-Term/SNF
Date of Disposition: 12/15/24
Time of Disposition: 18:19
Patient with high blood pressure during this ER visit?: Yes
Discharge Problem:
Anemia
Instructions: Anemia caused by low iron in adults - Discharge instructions
Prescriptions:
No Action
metoprolol succinate 100 MG tablet extended release 24 hr
100 mg PO HS
atorvastatin 20 MG tablet
20 mg PO HS
allopurinol 100 MG tablet
100 mg PO DAILY
gabapentin 300 MG capsule
300 mg PO DAILY
melatonin 3 MG tablet
6 mg PO HS
magnesium hydroxide 30 ML suspension
30 ml PO HSPRN PRN (Reason: if no bm in 2 days)
bisacodyl 10 MG suppository
10 mg CA DAILYPRN PRN (Reason: if no bm on 3rd day)
torsemide 20 mg Tablet
40 mg PO DAILY
famotidine 20 mg Tablet
20 mg PO DAILY
potassium chloride 20 mEq Tablet Extended Release
20 meq PO DAILY
hydrocortisone [Preparation H Hydrocortisone] 1 % Cream
1 applic TOPICAL Q6HPRN PRN (Reason: hemorrhiods)
Calazime Paste
1 applic topical BID
Patient Comments:
03/06/2024: apply to vaginal excoriation
Reguloid 51.7% Powder
0.5 tbsp PO DAILY
prednisone 10 mg tablets,dose pack
10 mg PO DAILY
oxycodone 5 MG tablet
5 mg PO Q4HPRN PRN (Reason: moderate pain) Qty: 12 0RF
mineral oil-hydrophil petrolat Ointment
1 applic TOPICAL BID
Patient Comments:
03/06/2024: apply to B/L LE
Fleet Enema 19-7 gram/118 mL Enema
118 ml CA DAILYPRN PRN (Reason: if no bm x 4 days)
nystatin 100,000 unit/gram Powder
1 applic TOPICAL Q12H
Balmex Ointment
1 ea TOPICAL TID
Patient Comments:
03/06/2024: apply to sacrum and buttocks
ipratropium-albuterol [DuoNeb] 0.5 mg-3 mg(2.5 mg base)/3 mL Solution For Nebulization
3 ml INHALATION R Q6HPRN PRN (Reason: sob)
ondansetron HCl [Zofran] 4 mg Tablet
4 mg PO Q6HPRN PRN (Reason: nausea)
acetaminophen [Tylenol Extra Strength] 500 mg Tablet
1,000 mg PO TID
levothyroxine [Synthroid] 88 mcg Tablet
88 mcg PO DAILY
escitalopram oxalate [Lexapro] 5 mg Tablet
5 mg PO DAILY
lidocaine HCl [Aspercreme (lidocaine HCl)] 4 % Cream
1 applic TOPICAL Q4HPRN PRN (Reason: right hip pain)
Jardiance 10 mg Tablet
10 mg PO DAILY
insulin glargine [Lantus Solostar U-100 Insulin] 300 UNITS/3 ML insulin pen
8 units SC HS
Referrals:
Kyler Mohan MD [Family Provider] -
Interventions
Interventions:
*Risk Screen - Suicide Last Done: 12/15/24 13:07
*General Assessment Last Done: 12/15/24 13:07
*Neglect/Abuse Screening Last Done: 12/15/24 13:07
ED- Fall Risk Assessment Last Done: 12/15/24 13:07
*ED COVID-19 Vaccine History Last Done: 12/15/24 13:07
Discharge Date and Time
Print Language: LAO
[2024-12-15 14:10] LABS: PT 12.5 Sec (11.4-14.6)
[2024-12-15 14:11] LABS: APTT 23.3 Sec (23.4-35.0)
== END 2024-12-15 20:46 ==
LOC: EMR 13:05
PROVIDERS: Physician Assistant Medical; EMERGENCY PHYSICIAN Emergency Medicine; FAMILY PHYSICIAN Family Medicine
DX: D50.9 Iron deficiency anemia, unspecified (principal); I12.9 Hypertensive chronic kidney disease with stage 1 through stage 4 chronic kidney disease, or unspecified chronic kidney disease; E11.22 Type 2 diabetes mellitus with diabetic chronic kidney disease; N18.9 Chronic kidney disease, unspecified; E03.9 Hypothyroidism, unspecified; E78.00 Pure hypercholesterolemia, unspecified; I25.10 Atherosclerotic heart disease of native coronary artery without angina pectoris; F03.A0 Unspecified dementia, mild, without behavioral disturbance, psychotic disturbance, mood disturbance, and anxiety; J45.909 Unspecified asthma, uncomplicated; K21.9 Gastro-esophageal reflux disease without esophagitis; M79.7 Fibromyalgia; Z85.820 Personal history of malignant melanoma of skin
CPT/HCPCS: 36430; 99285; 36415; 85027; 85610; 85730; 86850; 86900; 86901; 86920; P9016

== ENCOUNTER → 2024-12-18 09:55 | Outpatient (REF) | payer MEDICARE, OTHER, SELFPAY ==
[2024-12-18 11:36] LABS: Hematocrit 36.8 % (37.0-47.0); Hemoglobin 9.8 g/dL (12.0-16.0); Mean Corp Hgb Conc. 26.6 g/dL (33.0-37.0); Mean Corpuscular Hgb 21.9 pg (27.0-31.0); Mean Corpuscular Volume 82.3 fL (81.0-99.0); Mean Platelet Volume 10.5 fL (7.4-10.4); Platelet Count 228 10^3/uL (130-400); Red Blood Cell Count 4.47 10^6/uL (4.20-5.40); Red Cell Dist. Width 19.1 % (11.5-14.5); White Blood Cell Count 11.7 10^3/uL (4.8-10.8)
== END ==
LOC: OLABWHC 09:55
PROVIDERS: ATTENDING PHYSICIAN Family Medicine
DX: I10 Essential (primary) hypertension (principal); E11.9 Type 2 diabetes mellitus without complications; E11.22 Type 2 diabetes mellitus with diabetic chronic kidney disease; D64.9 Anemia, unspecified; E78.5 Hyperlipidemia, unspecified; E87.6 Hypokalemia
CPT/HCPCS: 36415; 85027

== ENCOUNTER → 2025-01-02 09:27 | Outpatient (REF) | payer MEDICARE, OTHER, SELFPAY ==
[2025-01-02 11:01] LABS: Hematocrit 32.1 % (37.0-47.0); Hemoglobin 9.1 g/dL (12.0-16.0); Mean Corp Hgb Conc. 28.3 g/dL (33.0-37.0); Mean Corpuscular Hgb 22.6 pg (27.0-31.0); Mean Corpuscular Volume 79.7 fL (81.0-99.0); Mean Platelet Volume 10.7 fL (7.4-10.4); Platelet Count 289 10^3/uL (130-400); Red Blood Cell Count 4.03 10^6/uL (4.20-5.40); Red Cell Dist. Width 20.3 % (11.5-14.5); White Blood Cell Count 11.5 10^3/uL (4.8-10.8)
[2025-01-02 11:36] LABS: Magnesium 2.2 mg/dl (1.6-2.3)
[2025-01-02 11:56] LABS: Blood Urea Nitrogen 33 mg/dl (7-17); Calcium 9.5 mg/dl (8.4-10.2); Carbon Dioxide 24 mmol/L (22-30); Chloride 103 mmol/L (98-107); Glucose 84 mg/dl (70-99); Sodium 141 mmol/L (135-145); eGFR 41.06
== END ==
LOC: OLABWHC 09:27
PROVIDERS: ATTENDING PHYSICIAN Family Medicine
DX: N17.9 Acute kidney failure, unspecified (principal); D64.9 Anemia, unspecified; I10 Essential (primary) hypertension; E78.5 Hyperlipidemia, unspecified; E11.9 Type 2 diabetes mellitus without complications; E11.22 Type 2 diabetes mellitus with diabetic chronic kidney disease; N18.4 Chronic kidney disease, stage 4 (severe); E87.6 Hypokalemia
CPT/HCPCS: 36415; 80048; 83735; 85027

== ENCOUNTER → 2025-01-08 09:41 | Outpatient (REF) | payer MEDICARE, OTHER, SELFPAY | LOC: HWRAD 09:41 | PROVIDERS: ATTENDING PHYSICIAN Registered Nurse; FAMILY PHYSICIAN Family Medicine | DX: N95.9 Unspecified menopausal and perimenopausal disorder (principal) | CPT/HCPCS: 76856 ==

== ENCOUNTER → 2025-03-09 09:33 | Outpatient (REF) | payer MEDICARE, OTHER, SELFPAY ==
[2025-03-09 11:55] LABS: Urine Albumin Negative (Neg - Trace); Urine Bilirubin Negative (Negative); Urine Character Clear (Clear); Urine Color Yellow; Urine Glucose 3+ (Negative); Urine Ketone Negative (Negative); Urine Leukocyte 1+ (Negative); Urine Nitrite Negative (Negative); Urine Occult Blood 1+ (Negative); Urine Specific Gravity 1.015 (<1.030); Urine Urobilinogen Negative (Neg - 1+)
[2025-03-09 12:52] LABS: Urine Red Blood Cell 0-2 /HPF (0-2); Urine White Cell 30-40 /HPF (0-5)
[2025-03-09 12:54] LABS: Urine Squamous Cell 0-2 /LPF (Few)
== END ==
LOC: OLABWHC 09:33
PROVIDERS: ATTENDING PHYSICIAN Family Medicine
DX: N39.0 Urinary tract infection, site not specified (principal)
CPT/HCPCS: 81003; 81015; 87077; 87086; 87186

== ENCOUNTER 2025-05-01 18:57 | Inpatient (IN) | payer MEDICARE, OTHER, SELFPAY ==
[2025-05-01] VITALS (10 sets, daily range): BP systolic 112–158; BP diastolic 38–83; BMI 32.6
--- NOTE | 2025-05-01 16:50 | ED.GENMED ---
History of Present Illness
General
Chief Complaint: Weakness
Source: patient and ambulance crew
Time Seen by Provider: 05/01/25 16:25
History of Present Illness
History of Present Illness:
84-year-old female presents to the emergency room for evaluation of generalized weakness, inability ambulate, decreased oral intake and low pulse ox. Patient also complaining of pain everywhere. Patient states she is not sure why she is here. She
is unable to provide much of a history. She currently denies any chest pain, abdominal pain, headache.
Past History
Past History
ED Past Medical History: Asthma, CAD, GERD, HTN, Hypercholesterolemia, NIDDM, NE, Hypothyroidism and Other (melanoma,fibromyalgia, skin CA on face removed)
ED Past Surgical History: Orthopedic (Total knee surgery, right and left, carpal full release right and left, rotator cuff repair on the right) and Other (melanoma resection, and umbilical hernia repair, right ant. chest port)
Social History
Tobacco: Non-smoker
Alcohol: None
Drug: None
Personal:
Living: [facility]
Employment: Employed
Phy Exam
Physical Exam
Physical Exam:
General: Awake, Alert, Oriented X3. Higher BMI, mild increased work of breathing, appears chronically ill
Vitals: Rectal temperature 100.2, hypoxic on room air
Head: Atraumatic
Eyes: Pupils equal, EOMI
Throat: Airway intact, no exudates
Neck: Trachea midline
Lungs: Coarse breath sounds bilaterally
Heart: Regular rate, no murmurs
Abd: Soft, mild tenderness palpation, No pulsatile mass
Neuro: Grossly nonfocal
Skin: Warm, dry, no rash
Extremities: pulses equal b/l, 1+ edema, changes of chronic venous stasis
Sepsis
Sepsis Screening
Sepsis Assessment: Sepsis
Sepsis Screen
Sepsis Screen: Sepsis
Date: 05/01/25
Time: 18:00
Course
Orders/Labs/Results
Orders:
Orders
05/01/25 Dinner
1800 calorie (15 carb) Diabetic
At Your Request: Full Participation
05/01/25 16:34
Electrocardiogram (*1) Urgent
Reason for Study: Other
Other Reason for Exam: Possible Sepsis
05/01/25 16:35
EKG- Treatment ONCE
CR Chest - 2 Views Urgent
Comment:
Reason For Exam: suspected infection
05/01/25 16:48
Add On- LAB Urgent
Tests Added?: bnp
05/01/25 16:49
Straight cath- Treatment ONCE
05/01/25 17:00
Complete Blood Count/With Diff Urgent
Comprehensive Metabolic Panel Urgent
Lactic Acid Q4H
Comment: ON ICE, CANCEL 2ND ORDER IF FIRST LACTIC ACID LEVEL <2
NT-proBNP Urgent
Comment: ADD ON
Urinalysis Reflex To Culture Urgent
Date Specimen was Collected: 05/01/25
Time Specimen was Collected: 16:51
Urine Microscopic Reflex Cult Urgent
Blood Culture Q20M
CRYSTAL Source: Blood/Venous
Specimen Description:
Comment: Urgent from separate sites. If patient screens positive for possible sepsis
Urine Culture Urgent
CRYSTAL Source: U
Specimen Description:
Date Specimen was Collected: 05/01/25
Time Specimen was Collected: 16:51
05/01/25 18:16
CefTRIAXone [Rocephin] 2,000 mg IV NOW STA
Doxycycline [Vibramycin] 100 mg PO NOW STA
05/01/25 18:31
Admit/Transfer Patient As Directed
Co-Sign Provider:
Level of Care: Inpatient admission
Assign to:: Medical/Surgical
Physician / Group: Sixto
Diagnosis: Pneumonia
Reason for Hospitalization: Pneumonia
Expected length of stay greater than two midnights?: Yes
ELOS- Estimated Length of Stay in days: 2
I certify the patient meets the requirements for IP care: Yes
PRN Pain Medication Management As Directed
May give lesser potent ordered pain med per pt: Yes
preference::
Protocol:: Medication orders for pain may be administered in a
manner that supports deferring to patient preference
when the pt is:
- Requesting an ordered lesser potent pain medication.
Least to most potent pain medications are defined
as: acetaminophen < NSAID < tramadol < opioids
(morphine, oxycodone, hydromorphone).
- Requesting a lesser dose of the same medication IF
ORDERED.
- Requesting a less intrusive route of administration
if both routes are prescribed by the provider (PO <
IV).
05/01/25 18:34
Code Status As Directed
Resuscitation Status: Full Code
05/01/25 19:05
Venous Blood Gas Stat
%Oxygen/Room Air: 28
Blood Culture Q20M
CRYSTAL Source: Blood/Venous
Specimen Description:
Comment: Urgent from separate sites. If patient screens positive for possible sepsis
05/01/25 20:28
Acetaminophen [Tylenol] 650 mg PO Q4HPRN PRN
Bisacodyl [Dulcolax] 10 mg RECTAL Q72H PRN if no BM x 3 days
Ipratropium/Albuterol Sulfate [Duoneb] 3 ml INH R Q4HPRN PRN
Ipratropium/Albuterol Sulfate [Duoneb] 3 ml INH R QID
Loperamide [Imodium] 2 mg PO [id number] PRN diarrhea
Mag Hydrox/Al Hydrox/Simeth [Maalox] 15 ml PO QIDPRN PRN
Magnesium Hydroxide [Milk of Magnesia] 30 ml PO HSPRN PRN if no BM x 2 days
Ondansetron Injectable [Zofran] 4 mg IV Q6HPRN PRN
Oxycodone [Roxicodone] 5 mg PO Q4HPRN PRN severe chronic pain
05/01/25 20:28
Legionella Urinary Antigen Routine
CRYSTAL Source: Urine
Specimen Description:
MRSA Screen Routine
CRYSTAL Source: Nose
Specimen Description:
Respiratory Culture/Gram Stain Urgent
CRYSTAL Source: Sputum
Specimen Description:
Strep pneumoniae Antigen Routine
CRYSTAL Source: Urine
Specimen Description:
Activity As Directed
Activity Level: Out of Bed-Early Mobility
Bedside Glucose Monitoring As Directed
Frequency: AC&HS
Fentanyl Patch Confirmation BID@0700,1900
Intake/ Output As Directed
Frequency: Per unit guidelines
Vital Signs As Directed
Frequency: Per unit guidelines
Weight As Directed
Frequency: Once
Comment: on admission
O2 Therapy [RESP] Routine
Nasal Cannula Liter Flow: 2 LPM
Titrate/Wean O2 to maintain O2 sat greater than (%): 93
Special Instructions: Wean as tolerated
Pulse Ox/cont/shift [RESP] Routine
Quantity: 1
Special Instructions: notify provider if SPO2 < 91%
Rx Incentive Spirometry [RESP] Routine
Frequency: q1h while awake
Pt Eval And Treat Routine
Activity Level: With Assistance
DX Deep Vein Thrombosis Video Routine
05/01/25 21:00
Miconazole Nitrate [Desenex/Mitrazol/Zeasorb] See Dose Instructions TOPICAL BID
05/01/25 21:05
Methylsalicylate/Menthol [BenGay-Like] See Dose Instructions TOPICAL Q4HPRN PRN
05/01/25 22:00
Atorvastatin [Lipitor] 20 mg PO HS
FentaNYL 12 MCG/HR PATCH [Duragesic 12 Mcg/Hr Patch] 1 patch TRANSDERM Q72H
Gabapentin [Neurontin] 600 mg PO HS
Insulin Glargine Lantus [Lantus] 5 units Subcutaneous Insulin Syringe [Syringe-Insulin] 0 unit SC HS
Melatonin 6 mg PO HS
Metoprolol Xl [Toprol Xl] 100 mg PO HS
REMOVE fentaNYL PATCH [Remove Duragesic Patch] See Dose Instructions REMOVE Q72H
Zinc Oxide 40% [Desitin Maximum Strength Paste] See Dose Instructions TOPICAL TID
lidocaine 1 applic TOPICAL TID
05/02/25 00:00
Heparin 5,000 units SC Q8
05/02/25 06:00
Type And Crossmatch [Type+Screen] IN AM
Basic Metabolic Panel IN AM
Complete Blood Count/No Diff IN AM
Iron IN AM
Total Iron Binding IN AM
Venous Blood Gas IN AM
%Oxygen/Room Air: 28
Levothyroxine [Synthroid] 88 mcg PO DAILY @ 0600
05/02/25 07:30
Insulin Aspart Corrective Low [Novolog Flexpen-Low Resistance] See Protocol SC AC
05/02/25 08:00
Allopurinol [Zyloprim] 100 mg PO DAILY
Dapagliflozin [Farxiga] 10 mg PO DAILY
Doxycycline [Vibramycin] 100 mg PO BID
Escitalopram Oxalate [Lexapro] 5 mg PO DAILY
Famotidine [Pepcid] 20 mg PO DAILY
Gabapentin [Neurontin] 300 mg PO DAILY
Prednisone [Deltasone] 10 mg PO DAILY
05/02/25 20:00
CefTRIAXone [Rocephin] 2,000 mg IV Q24H
Abnormal Lab Results
05/01/25
17:00
WBC 12.6 H 10^3/uL
(4.8-10.8)
RBC 3.81 L 10^6/uL
(4.20-5.40)
Hgb 8.0 L g/dL
(12.0-16.0)
Hct 29.2 L %
(37.0-47.0)
MCV 76.6 L fL
(81.0-99.0)
MCH 21.0 L pg
(27.0-31.0)
MCHC 27.4 L g/dL
(33.0-37.0)
RDW 16.5 H %
(11.5-14.5)
Abs Immat Gran (auto) 0.1 H 10^3/uL
(0-0.05)
Absolute Neuts (auto) 9.4 H 10^3/uL
(1.4-6.5)
Absolute Monos (auto) 1.5 H 10^3/uL
(0.1-0.6)
Immature Gran % 0.6 H %
(0-0.5)
Lymphocytes % 11.4 L %
(20.5-51.1)
Monocytes % 12.1 H %
(1.7-9.3)
Carbon Dioxide 33 H mmol/L
(22-30)
BUN 25 H mg/dl
(7-17)
Creatinine 1.3 H mg/dL
(0.6-1.0)
Glucose 104 H mg/dl
(70-99)
Lactic Acid 2.4 H mmol/L
(0.7-2.0)
Total Protein 6.1 L g/dl
(6.3-8.2)
Ur Occult Blood Reflex 1+ A
(Negative)
Leukocyte Esterase Rfl 3+ A
(Negative)
Urine WBC (Reflex) 80-90 A /HPF
(0-5)
Urine Glucose 3+ A
(Negative)
Urine Albumin (Reflex) 2+ A
(Neg - Trace)
05/01/25 17:00
05/01/25 17:00
Vital Signs
Initial and Last Documented VS:
Initial Vital Signs
Pulse Resp BP Pulse Ox
78 20 138/62 91
05/01/25 16:30 05/01/25 16:30 05/01/25 16:30 05/01/25 16:30
Last Documented Vital Signs
Temp Pulse Resp BP Pulse Ox
98.3 F 88 18 142/58 99
05/01/25 20:11 05/01/25 21:51 05/01/25 20:58 05/01/25 21:51 05/01/25 20:58
MDM/Problems Addressed
Differential Diagnosis Includes:
Pneumonia, UTI, viral syndrome,
MDM/Problems Addressed:
Patient presents with increased confusion and weakness. She was hypoxic at her facility. Chest x-ray reveals bilateral lower lobe infiltrates. Labs show elevated white blood cell count, moderate anemia at 8.0 chemistries are in line with previous
measurements. Lactate is mildly elevated at 2.4. Patient will require hospitalization given her increased oxygen needs, weakness.
*Pulse Oximetry
SaO2: 89
Oxygen Mode of Delivery: Room air
Patient hypoxic: yes
*EKG
Interpreted by ED Provider?: Yes
Heart Rate: 81
Rate: normal
Rhythm: sinus
[place]: normal axis
Interval: normal interval
QRS Pattern: normal QRS
Ischemia: no ischemia
*Goal Umpire Interpretation
Rate: normal
Interpretation: normal
Rhythm: sinus
*Critical Care Note
Total Time (30-74mins, 75-104mins- exclusive of procedures): Not Applicable
ED Attending Note
-
Portions of this chart may have been created with voice recognition software.� Occasional wrong word or��sound alike� substitutions may have occurred due to the inherent limitations of voice recognition software.
Discharge Plan
Departure
Patient Disposition: Admit
Date of Disposition: 05/01/25
Time of Disposition: 18:20
Admit to: Med/Surg
Presentation/result/management discussed w/ accepting MD/DO: Hospitalist
Discharge Problem:
Pneumonia
Interventions
Interventions:
*Risk Screen - Suicide Last Done: 05/01/25 17:00
*General Assessment Last Done: 05/01/25 17:00
*Neglect/Abuse Screening Last Done: 05/01/25 17:00
*ED- Fall Risk Assessment Last Done: 05/01/25 17:00
*ED COVID-19 Vaccine History Last Done: 05/01/25 17:00
*Nursing Disposition Last Done: 05/01/25 20:23
ED- Cardiac Assessment Last Done: 05/01/25 16:45
ED- Neurological Assessment Last Done: 05/01/25 16:45
ED- Pulmonary Assessment Last Done: 05/01/25 16:45
Discharge Date and Time
Discharge Date/Time: 05/01/25 20:24
[2025-05-01 17:20] LABS: Lactic Acid 2.4 mmol/L (0.7-2.0)
[2025-05-01 17:23] LABS: ALT (SGPT) 15 U/L (0-35); AST (SGOT) 24 U/L (14-36); Albumin 3.6 g/dl (3.5-5.0); Alkaline Phosphatase 119 U/L (38-126); Blood Urea Nitrogen 25 mg/dl (7-17); Calcium 9.2 mg/dl (8.4-10.2); Carbon Dioxide 33 mmol/L (22-30); Chloride 102 mmol/L (98-107); Estimated Creatinine Clearance 30 ml/min; Glucose 104 mg/dl (70-99); Potassium 4.6 mmol/L (3.5-5.1); Sodium 139 mmol/L (135-145); Total Bilirubin 0.7 mg/dl (0.2-1.3); Total Protein 6.1 g/dl (6.3-8.2); eGFR 41.06
[2025-05-01 17:38] LABS: Urine Albumin 2+ (Neg - Trace); Urine Bilirubin Negative (Negative); Urine Character Slightly Cloudy (Clear); Urine Color Yellow; Urine Glucose 3+ (Negative); Urine Ketone Negative (Negative); Urine Leukocyte 3+ (Negative); Urine Nitrite Negative (Negative); Urine Occult Blood 1+ (Negative); Urine Specific Gravity 1.015 (<1.030); Urine Urobilinogen Negative (Neg - 1+)
[2025-05-01 17:52] LABS: NT-proBNP 688 pg/ml
[2025-05-01 18:17] LABS: Urine Hyaline Cast 0-2 /LPF (0-2); Urine Red Blood Cell 0-2 /HPF (0-2)
[2025-05-01 18:18] LABS: Urine White Cell 80-90 /HPF (0-5)
[2025-05-01 18:19] LABS: % Basophils 0.6 % (0-2); % Eosinophils 0.8 % (0-6); % Immature Granulocytes 0.6 % (0-0.5); % Lymphocytes 11.4 % (20.5-51.1); % Monocytes 12.1 % (1.7-9.3); % Neutrophils 74.5 % (42.2-75.2); Absolute Basophils 0.1 10^3/uL (0-0.2); Absolute Eosinophils 0.1 10^3/uL (0-0.7); Absolute Immature Granulocytes 0.1 10^3/uL (0-0.05); Absolute Lymphocytes 1.4 10^3/uL (1.2-3.4); Absolute Monocytes 1.5 10^3/uL (0.1-0.6); Absolute Neutrophils 9.4 10^3/uL (1.4-6.5); Anisocytosis 2+; Hematocrit 29.2 % (37.0-47.0); Mean Corp Hgb Conc. 27.4 g/dL (33.0-37.0); Mean Corpuscular Volume 76.6 fL (81.0-99.0); Mean Platelet Volume 9.3 fL (7.4-10.4); Normal RBC Morphology No; Nucleated Red Blood Cells % 0.2 %; Platelet Count 394 10^3/uL (130-400); Red Blood Cell Count 3.81 10^6/uL (4.20-5.40); Red Cell Dist. Width 16.5 % (11.5-14.5); White Blood Cell Count 12.6 10^3/uL (4.8-10.8)
[2025-05-01 18:20] LABS: Hypochromasia 2+; Microcytosis 4+; Rouleaux 1+
--- NOTE | 2025-05-01 18:23 | HPS.HSE ---
Family Physician
-
Family Physician: Kyler Mohan MD
Chief Complaint
-
Of generalized weakness, aches and pains
History of Present Illness
This is a 84-year-old female with past medical history significant for insulin-dependent diabetes, hypothyroid, CKD, fluid retention, hypertension and hyperlipidemia as well as chronic microcytic anemia presenting to the emergency department for
generalized weakness.
Patient presented with generalized weakness, difficulty ambulating, decreased appetite, low oxygen saturation. She reports generalized malaise, aches and pains. Unable to provide much additional history. She denies any headache, chest pain,
abdominal pain, nausea vomiting diarrhea. She did not endorse any urinary symptoms.
In the emergency department she had a temp of 100.2, she was satting 99% on 2 L. Blood pressure was 140/60 with a pulse of 84.
Chest x-ray showed bilateral lower lobe pneumonia.
She had a white count of 12.6 with a left shift. Hemoglobin is 8 which is slightly decreased from baseline of 9 platelet pulse normal. Electrolytes are normal with a bicarb of 33 BUN/creatinine stable at 29 and 1.3.
Medical History
Past Medical History
Past Medical History: Reports CAD, Fibromyalgia, HTN and Other (Probable CKD. Metastatic melanoma status post adjuvant therapy/Keytruda. Insulin requiring diabetes. Hypertension fibromyalgia)
Past Surgical History: Reports None
Social History
Tobacco: Non-smoker
Alcohol: None
Drug: None
Personal: Single
Living: Other (Personal care)
Employment: Not Employed
Family History
Family History: Not pertinent
Allergies / Home Medications
Allergies reflects when Allergies were last updated in [employer]
Home Medications with original date entered in [employer]
Allergy/Medication List:
Allergies
Allergy/AdvReac Type Severity Reaction Status Date / Time
[place] And Derivatives Allergy DIARRHEA, Verified 10/08/22 10:18
swelling
of mouth,
breathing
difficulty
levofloxacin [From Levaquin] Allergy Itching Verified 10/08/22 10:18
milk [Milk] Allergy diarrhea Verified 10/08/22 10:18
tomato Allergy Tongue Verified 11/19/23 12:08
Swelling
bandages Allergy Rash Uncoded 10/08/22 10:18
Grass, maple pollen Allergy Breathing Uncoded 10/08/22 10:18
trouble,
sneezing,
runny nose
mold, dust, hayfever Allergy congestion Uncoded 10/08/22 10:18
&
wheezing,
sneezing,
runny nose
PEPPERS Allergy swelling Uncoded 10/08/22 10:18
mouth &
throat,
bloating,
cramping,
vomiting,
diarr
Home Medications
atorvastatin 20 mg tablet 20 mg PO HS High cholesterol 09/14/15
metoprolol succinate 100 mg tablet,extended release 24 hr 100 mg PO HS Heart disease/condition 09/14/15
allopurinol 100 mg tablet 100 mg PO DAILY Gout 08/22/21
gabapentin 300 mg capsule 300 mg PO DAILY@1400 Pain 08/22/21
gabapentin 300 mg capsule 600 mg PO HS Pain 08/22/21
albuterol sulfate 90 mcg/actuation aerosol inhaler 2 puff inhalation R Q6HPRN PRN sob/wheezing 09/09/21
acetaminophen 500 mg tablet (Tylenol Extra Strength) 1,000 mg PO TID Pain 09/15/21
bisacodyl 10 mg rectal suppository 10 mg RI DAILYPRN PRN if no bm on 3rd day 09/15/21
insulin lispro 100 unit/mL subcutaneous pen (Humalog KwikPen (U-100) Insulin) 0 units SC AC Diabetes 09/15/21
levothyroxine 112 mcg tablet 112 mcg PO DAILY@07 Thyroid 09/15/21
loperamide 2 mg capsule 2 mg PO [id number] PRN diarrhea 09/15/21
magnesium hydroxide 400 mg/5 mL oral suspension 30 ml PO DAILYPRN PRN if no bm in 2 days 09/15/21
melatonin 3 mg tablet 9 mg PO HS Sleep 09/15/21
oxycodone 5 mg tablet 5 mg PO Q4HPRN PRN moderate pain 09/15/21
insulin glargine 100 unit/mL (3 mL) subcutaneous pen (Lantus Solostar U-100 Insulin) 6 units (0.06 mL) SC HS Diabetes ##0 09/21/21
Lactobacillus acidophilus 2 billion cell tablet 1 ea PO DAILY Supplement 02/04/23
cholecalciferol (vitamin D3) 1,250 mcg (50,000 unit) tablet 1,250 mcg PO TH@08 Supplement 02/04/23
diclofenac sodium 1 % topical gel 2 g topical Q6HPRN PRN right hip 02/04/23
diphenhydramine HCl 25 mg tablet 25 mg PO [id number] PRN allergies 02/04/23
famotidine 20 mg tablet 20 mg PO DAILY Gastrointestinal issue 02/04/23
miconazole nitrate 2 % topical powder (Desenex) 1 applic topical BIDPRN PRN skin rash 02/04/23
mineral oil-hydrophil petrolat topical ointment (Aquaphor topical ointment) 1 applic topical [id number] PRN b/l lower extremities dry skin 02/04/23
potassium chloride 20 mEq tablet,extended release 20 meq PO DAILY Electrolyte Repletion 02/04/23
torsemide 20 mg tablet 20 mg PO DAILY Fluid retention/Swelling 02/04/23
Calazime Paste 1 applic topical BID vaginal 11/19/23
Reguloid 51.7% Powder 0.5 tbsp PO DAILY 11/19/23
hydrocortisone 1 % topical cream (Preparation H Hydrocortisone) 1 applic topical Q6HPRN PRN hemorrhiods 11/19/23
prednisone 10 mg tablets in a dose pack 10 mg PO DAILY 11/19/23
Review of Systems
-
Constitutional: Reports See HPI
EENT: Reports No Symptoms
Respiratory: Reports See HPI and Trouble Breathing (mild)
Cardiac: Reports No Symptoms
Abdomen/GI: Reports No Symptoms
: Reports No Symptoms
Musculoskeletal: Reports No Symptoms
Skin: Reports No Symptoms
Neurological: Reports Weakness
Endocrine: Reports No Symptoms
Physical Exam
Vital Signs
Vital Signs
Temp Pulse Resp BP Pulse Ox
100.2 F 84 18 144/64 99
05/01/25 16:35 05/01/25 17:58 05/01/25 17:58 05/01/25 17:58 05/01/25 17:58
Physical Exam
General: Well Developed, Well Nourished, Comfortable, Appears Chronically Ill and Morbidly Obese
HEENT: NormoCephalic, Moist mucous membranes, Atraumatic and Oxygen (2L NC)
Respiratory: Clear (anteriorly, unable to auscultate throughout) and Non Labored Respirations; No Wheezes, Rales or Accessory Resp Muscle Use
Cardiac: S1/S2 and Regular Rhythm; No Murmur or Rub
GI: Soft, Non Tender, Non Distended and Normal Bowel Sounds; No Organomegaly
Rectal: Deferred by Provider
Musculoskeletal: No Clubbing, No Cyanosis, Edema, Left Lower Extremity and Edema, Right Lower Extremity
Skin: Rash (bilateral le rash, stasis dermatitis)
Neuro: Nonfocal/grossly intact
Psych: Calm
Laboratory Results
-
05/01/25 17:00
05/01/25 17:00
Laboratory Results
Lactic Acid 2.4 mmol/L (0.7-2.0) H 05/01/25 17:00
Total Bilirubin 0.7 mg/dl (0.2-1.3) 05/01/25 17:00
AST 24 U/L (14-36) 05/01/25 17:00
ALT 15 U/L (0-35) 05/01/25 17:00
Alkaline Phosphatase 119 U/L (38-126) 05/01/25 17:00
Data Reviewed
-
Diagnostic Radiology: Image Personally Visualized and interpreted and Report Reviewed by me
Lab Data: Labs Reviewed by me
Old Records: Reviewed
Impression/Plan
-
IMPRESSION:
84-year-old female with past medical history significant for CKD, anemia, hypertension hypothyroidism insulin-dependent diabetes presenting to the emergency department with generalized aches malaise and found to be febrile and hypoxic requiring 2 L.
She has bilateral pneumonia on x-ray. She has leukocytosis and lactic acid of 2.4. Moderate to severe pneumonia w/ sepsis. High risk for decompensation.
PLAN:
Pneumonia - Bilateral pna with hypoxia. Last admission 01/02. No h/o mrsa/pseudomonas.
- admit to med/surg
- blood cultures sent
- check influenza/covid, urine antigens
- sputum culture if productive (unlikely)
- no h/o aspiration, will continue with ceftriaxone/doxycycline
- supportive measures
OHS - easily arousable but serum bicarb 33
- check vbg, if acidotic will need bipap hs
UTI - h/o proteus/klebesiella sens to cefazolin
- ceftriaxone as above and monitor
DM II
- lantus 5 hs for now
- sliding scale insulin
- continue jardiance
HTN
- continue metoprolol
- hold torsemide x 1 -2 days
Microcytic anemia - relatively stable at 8, baseline 8 - 9 since last year
- type and screen
- trend and transfuse for Hgb < 7
- check iron
Med reconciliation
- She is on prednisone 10 mg daily for 'breathing', suggestive of COPD/Asthma. No wheezing here. Continued and monitor for wheezing or worsening CO2 retention
- She is on chronic pain regimen including gabapentin and fentanyl as well as oxycodone for severe pain, and we will continue those for now as well
Left a message for patient's may contact Kely White as well as secondary contact Deborah Narayan informing them of the admission.
DVT PPX - heparin sq
code status - Full Code based on SNF and prior admission.
[2025-05-01 19:17] LABS: Venous Blood Gas B.E. 6.2 mmol/L (-4 to +4); Venous Blood Gas HCO3 32.4 mmol/L (22-27); Venous Blood Gas O2 Sat % 92.8 %; Venous Blood Gas pCO2 56 mmHg (35-48); Venous Blood Gas pO2 61 mmHg (30-50)
[2025-05-01 19:20] LABS: Venous Blood Gas pH 7.37 (7.32-7.43)
[2025-05-01] MEDS: ROCEPHIN 2000 MG IV (19:39)
[2025-05-01] MEDS: VIBRAMYCIN 100 MG PO (19:39)
--- NOTE | 2025-05-01 20:45 | PTCARENOTE ---
Pt received from ED via stretcher at 2015. Pt AAOx1, VSS, and pulled into bed from stretcher. Pt complains of pains all over body with 8/10 pain in R hip - see JAN. Pt not receptive to room, but receptive to call caraballo. Pt bed in lowest position and
call caraballo within reach. PT educated on importance of call caraballo usage, pt relays understanding and cooperation. Bed alarm placed and plugged in. Will continue with current plan of care.
[2025-05-01] MEDS: DUONEB 3 ML INH (20:51)
[2025-05-01 20:53] LABS: Glucose - Point of Care 96 mg/dl (70-99)
[2025-05-01] MEDS: ROXICODONE 5 MG PO (21:11)
[2025-05-01] MEDS: LIPITOR 20 MG PO (21:45)
[2025-05-01] MEDS: NEURONTIN 600 MG PO (21:45)
[2025-05-01] MEDS: LANTUS 0.05 UNITS SC (21:46)
[2025-05-01] MEDS: DESENEX/MITRAZOL/ZEASORB 1 APPLIC TOPICAL (21:46)
[2025-05-01] MEDS: ZINC OXIDE OINTMENT 1 APPLIC TOPICAL (21:47)
[2025-05-01] MEDS: DURAGESIC 12 MCG/HR PATCH 1 PATCH TRANSDERM (21:48)
[2025-05-01] MEDS: MELATONIN 6 MG PO (21:51)
[2025-05-01] MEDS: TOPROL XL 100 MG PO (21:51)
[2025-05-01] MEDS: HEPARIN 5000 UNITS SC (23:01)
[2025-05-02] VITALS (7 sets, daily range): BP systolic 82–140; BP diastolic 37–67; PULSE 78; O2SAT 95
[2025-05-02 01:32] LABS: Glucose - Point of Care 96 mg/dl (70-99)
[2025-05-02] MEDS: SYNTHROID 88 MCG PO (06:13)
[2025-05-02] MEDS: NEURONTIN 300 MG PO (07:57)
[2025-05-02] MEDS: LEXAPRO 5 MG PO (07:57)
[2025-05-02] MEDS: FARXIGA 10 MG PO (07:57)
[2025-05-02] MEDS: DELTASONE 10 MG PO (07:57)
[2025-05-02] MEDS: PEPCID 20 MG PO (07:57)
[2025-05-02] MEDS: BenGay-Like 1 APPLIC TOPICAL (07:58)
[2025-05-02] MEDS: ZYLOPRIM 100 MG PO (07:58)
[2025-05-02] MEDS: ZINC OXIDE OINTMENT 1 APPLIC TOPICAL ×2 (07:58→15:28)
[2025-05-02] MEDS: VIBRAMYCIN 100 MG PO (07:58)
[2025-05-02] MEDS: HEPARIN 5000 UNITS SC ×2 (07:58→15:26)
[2025-05-02] MEDS: DESENEX/MITRAZOL/ZEASORB 1 APPLIC TOPICAL (07:59)
[2025-05-02 08:00] LABS: Glucose - Point of Care 88 mg/dl (70-99)
[2025-05-02] MEDS: DUONEB 3 ML INH ×3 (08:01→14:56)
[2025-05-02 08:21] LABS: Venous Blood Gas B.E. 6.9 mmol/L (-4 to +4); Venous Blood Gas HCO3 32.7 mmol/L (22-27); Venous Blood Gas O2 Sat % 99.7 %; Venous Blood Gas pCO2 54 mmHg (35-48); Venous Blood Gas pH 7.39 (7.32-7.43); Venous Blood Gas pO2 181 mmHg (30-50)
[2025-05-02 08:25] LABS: Hematocrit 24.1 % (37.0-47.0); Hemoglobin 6.7 g/dL (12.0-16.0); Mean Corp Hgb Conc. 27.8 g/dL (33.0-37.0); Mean Corpuscular Hgb 21.3 pg (27.0-31.0); Mean Corpuscular Volume 76.5 fL (81.0-99.0); Mean Platelet Volume 9.3 fL (7.4-10.4); Platelet Count 325 10^3/uL (130-400); Red Blood Cell Count 3.15 10^6/uL (4.20-5.40); Red Cell Dist. Width 16.4 % (11.5-14.5); White Blood Cell Count 11.9 10^3/uL (4.8-10.8)
[2025-05-02 08:51] LABS: Blood Urea Nitrogen 21 mg/dl (7-17); Calcium 8.7 mg/dl (8.4-10.2); Carbon Dioxide 31 mmol/L (22-30); Chloride 102 mmol/L (98-107); Estimated Creatinine Clearance 33 ml/min; Glucose 83 mg/dl (70-99); Iron 22 ug/dl (37-170); Potassium 3.9 mmol/L (3.5-5.1); Sodium 138 mmol/L (135-145); eGFR 45.19
[2025-05-02 09:01] LABS: Percent Saturation 8 % (20-50); Total Iron Binding Capacity 246 ug/dl (265-497)
--- NOTE | 2025-05-02 09:31 | W.PN.HOSP.TC ---
Today's Communication/Plan
-
Transfuse
Check COVID
Continue antibiotics
Assessment / Plan
Assessment / Plan
Gen-awake, alert, NAD, confused
HEENT-NC, AT, anicteric, clear oral mm
Neck-supple
CV-reg, no M, +S1/S2
Lungs-decreased breath sounds bilaterally
Abd-soft, NT, ND
Ext-no edema
Musculoskeletal-no cyanosis, clubbing
Skin-warm and dry
Neuro-grossly non-focal
Psych-calm, cooperative
Acute hypoxic respiratory failure -due to bilateral pneumonia. Stable on 2 L nasal cannula oxygen. Has underlying chronic lung disease, COPD.
Sepsis due to community-acquired pneumonia -bilateral infiltrates noted on chest x-ray. Continue current antibiotics. Cultures pending. Check urinary antigens. Check COVID. Discussed with nursing.
Acute on chronic anemia -hemoglobin down to 6.7 this morning. Will need transfusion but patient cannot consent due to confusion and possible dementia. Left voicemail for with both daughters to call me back for consent. Discussed with nursing. No
obvious bleeding, check stools for blood. Baseline hemoglobin appears to be between 8 and 9. Microcytosis noted. Iron is 22, TIBC is 246, percentage saturation is 8. Will check ferritin, B12, folic acid, reticulocyte count.
Cognitive impairment -suspect underlying dementia. Will need follow-up as outpatient.
CKD 3B -stable.
COPD without exacerbation -on chronic prednisone.
Fibromyalgia
OHS -unclear if she is on BiPAP at the senior care.
Essential hypertension -stable.
DM2 without hyperglycemia -she is on Lantus 8 units at bedtime in the senior care.
Hypothyroidism -levothyroxine.
Hyperlipidemia -atorvastatin.
Metastatic melanoma
Obesity due to excess calories
full code
Updated patient's daughter Deborah Narayan on the phone. She did provide verbal consent for blood transfusion. We discussed CODE STATUS and she agrees with DNR but she wants to speak with her Sister Kely before committing.
Anticipated Discharge: > 48 hours
Subjective/Interval History
-
Date of Service: May 02, 2025
Patient seen and examined. Difficult historian, when I asked her about shortness of breath she tells me that she is not sure. No specific complaints.
Objective Data
-
Labs:
Laboratory Results
05/02/25
08:07
WBC 11.9 H
Hgb 6.7 L*
Hct 24.1 L
Plt Count 325
Sodium 138
Potassium 3.9
Chloride 102
Carbon Dioxide 31 H
BUN 21 H
Creatinine 1.2 H
Glucose 83
Calcium 8.7
Vital Signs:
Vital Signs
Temp Pulse Resp BP Pulse Ox
98.4 F 78 17 140/66 98
05/02/25 08:09 05/02/25 08:09 05/02/25 08:09 05/02/25 08:09 05/02/25 08:09
Review of Systems
-
History Source: Patient
All other systems: Reviewed and negative
[2025-05-02 09:53] LABS: COVID-19 Antigen Negative (Negative)
[2025-05-02 11:06] LABS: Lactic Acid 1.5 mmol/L (0.7-2.0)
[2025-05-02 11:10] LABS: Reticulocyte Count 2.2 % (0.4-2.8)
[2025-05-02 12:10] LABS: Glucose - Point of Care 108 mg/dl (70-99)
[2025-05-02 12:26] LABS: Ferritin 20.2 ng/ml (11.1-264.0)
[2025-05-02 12:57] LABS: Vitamin B12 314 pg/ml (239-931)
--- NOTE | 2025-05-02 15:43 | CM ---
Initial assessment completed. Patient a poor historian. Patient is a 84-year-old female with past medical history significant for insulin-dependent diabetes, hypothyroid, CKD, fluid retention, hypertension and hyperlipidemia as well as chronic
microcytic anemia presenting to the emergency department for generalized weakness.
Patient is a LTC resident at [facility]. CM spoke w/ Paula/nurse to obtain PLOF. Per Paula, patient primarily is independent w/ ambulation w/ the use of a RW. Patient does require an assist of 1-2 to ambulate if she is in pain, prior to
admitting to hospital, patient required a sit to stand lift. Patient does not use O2 or Bipap at SNF. Paula stated patient is confused from time to time but can be redirected easily. No recent therapy episodes.
PCP: Kyler Mohan
Pharmacy: [facility]
Therapy assessed, rec skilled rehab at d/c. CM placed referral to [facility] in [facility]
Plan: [facility] at d/c
[2025-05-02 17:02] LABS: Glucose - Point of Care 146 mg/dl (70-99)
[2025-05-02] MEDS: DUONEB INH (19:20)
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
[2025-05-02] MEDS: ATIVAN 0.5 MG IV (20:22)
[2025-05-02] MEDS: NSS (PRESERVATIVE FREE) 0.25 ML IV (20:24)
[2025-05-02] MEDS: ROCEPHIN 2000 MG IV (21:29)
[2025-05-02] MEDS: DESENEX/MITRAZOL/ZEASORB TOPICAL ×2 (21:29→22:18)
[2025-05-02] MEDS: MELATONIN PO (21:30)
[2025-05-02] MEDS: STERILE WATER FOR INJECTION 20 ML IV (21:30)
[2025-05-02] MEDS: LIPITOR PO (21:38)
[2025-05-02] MEDS: VIBRAMYCIN PO (21:38)
[2025-05-02] MEDS: NEURONTIN PO (21:38)
[2025-05-02] MEDS: ZINC OXIDE OINTMENT TOPICAL (21:39)
[2025-05-02 22:07] LABS: Glucose - Point of Care 127 mg/dl (70-99)
[2025-05-02] MEDS: LANTUS 0.05 UNITS SC (22:13)
[2025-05-02] MEDS: TOPROL XL PO (22:17)
[2025-05-03] MEDS: HEPARIN SC (00:29)
[2025-05-03] MEDS: SYNTHROID PO (05:23)
[2025-05-03] MEDS: HALDOL 0.5 MG IV (05:51)
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
[2025-05-03 07:12] VITALS: BP 157/74
[2025-05-03 07:38] LABS: Glucose - Point of Care 88 mg/dl (70-99)
[2025-05-03] MEDS: DUONEB 3 ML INH ×3 (07:47→19:40)
[2025-05-03 08:18] LABS: % Basophils 0.4 % (0-2); % Eosinophils 0.6 % (0-6); % Immature Granulocytes 0.8 % (0-0.5); % Lymphocytes 10.4 % (20.5-51.1); % Monocytes 11.7 % (1.7-9.3); % Neutrophils 76.1 % (42.2-75.2); Absolute Basophils 0.1 10^3/uL (0-0.2); Absolute Eosinophils 0.1 10^3/uL (0-0.7); Absolute Immature Granulocytes 0.1 10^3/uL (0-0.05); Absolute Lymphocytes 1.5 10^3/uL (1.2-3.4); Absolute Monocytes 1.7 10^3/uL (0.1-0.6); Absolute Neutrophils 10.9 10^3/uL (1.4-6.5); Hematocrit 28.5 % (37.0-47.0); Hemoglobin 8.3 g/dL (12.0-16.0); Mean Corp Hgb Conc. 29.1 g/dL (33.0-37.0); Mean Corpuscular Hgb 22.4 pg (27.0-31.0); Mean Platelet Volume 9.5 fL (7.4-10.4); Nucleated Red Blood Cells % 0.1 %; Platelet Count 349 10^3/uL (130-400); Red Cell Dist. Width 16.8 % (11.5-14.5); White Blood Cell Count 14.4 10^3/uL (4.8-10.8)
[2025-05-03] MEDS: PEPCID 20 MG PO (10:41)
[2025-05-03] MEDS: DELTASONE 10 MG PO (10:41)
[2025-05-03] MEDS: VIBRAMYCIN 100 MG PO ×2 (10:41→19:33)
[2025-05-03] MEDS: FARXIGA 10 MG PO (10:41)
[2025-05-03] MEDS: HEPARIN 5000 UNITS SC ×3 (10:41→23:38)
[2025-05-03] MEDS: NEURONTIN 300 MG PO (10:41)
[2025-05-03] MEDS: LEXAPRO 5 MG PO (10:41)
[2025-05-03] MEDS: ZYLOPRIM 100 MG PO (10:41)
[2025-05-03] MEDS: ZINC OXIDE OINTMENT 1 APPLIC TOPICAL ×3 (10:42→21:48)
[2025-05-03] MEDS: DESENEX/MITRAZOL/ZEASORB 1 APPLIC TOPICAL ×2 (10:42→19:32)
[2025-05-03] MEDS: ROXICODONE 5 MG PO (10:48)
[2025-05-03] MEDS: DUONEB INH (11:09)
[2025-05-03 12:09] LABS: Glucose - Point of Care 97 mg/dl (70-99)
--- NOTE | 2025-05-03 12:11 | CON.MD ---
Addendum entered and electronically signed by Elliot Nixon MD 05/03/25 12:29:
would check tsh as patient hypothryoid on synthroid
Original Note:
Consultation - Medical
-
patient seen chart reviewed. this consult is being done today may 03 2025. patient is a 84 year old woman who resides at [facility]. she is unable to provide much information as she keeps closing her eyes when i attempt to speak w her. i did speak w
her d who provided hx. d reports patient was NEVER dx with dementia. she has been somewhat less positive in mood since h ten years ago and she has suffered medical issues. she has been living at [facility] for about five years initially
independent living but now assisted given medical issues. she is typically very good humored but d says with infection elisabet uti she becomes agitated but when the infection is rx this resolves and she returns to her more + self. she has no hx of being
rx for depression or anxiety. patient admitted w pneumonia but urine culture pending and ua looks infected. last evening she became very agitated and required iv sedation ativan and haldol as well as restraints. she is now quietly resting
past psych hx see above never rx for psych
medical hx patient has hx pedal edema with breakdown of skin, hypothyroid gout hld obesity dm htn gerd asthma chronic pain fibromyalgia melonoma she was febrile at admit w hgb 8 and transfusion ordered bun 29 cr 1.3 ecg w nl qtc b12 folate
ok
substance abuse not
fh non contributory
social hx resides at [facility] two d's grandkids great grands
mse unable to really talk w patient who was very sleepy. she could not answer as to where she was or the date today. she did give me her name
dx tme secondary to medical illness
plan i did okay w d use of haldol prn 0.5 mg iv in tiny doses for severe agitation. qtc is okay. it seems to to have helped her. would continue to treat underlying infection and hopefully she will return to her baseline pleasant demeanor which d
says is also cognitively pretty intact. will look in on her tomorrow.
--- NOTE | 2025-05-03 12:45 | W.PN.HOSP.TC ---
Addendum entered and electronically signed by Higinio Jiang DO 05/03/25 14:17:
I did touch base with patient's primary care physician, Dr. Kyler Mohan.
He mentioned that she does have a abnormal endometrium on ultrasound noted in January. Ultrasound was done for postmenopausal vaginal bleeding. Discussion was had apparently as an outpatient for further workup including biopsy but patient declined.
It was explained to her in the past that she may have underlying endometrial cancer but she apparently was not interested in further workup.
Will monitor for any further bleeding in the hospital. Will discuss with nursing.
Original Note:
Today's Communication/Plan
-
Continue antibiotics
TSH
CBC in the morning
Assessment / Plan
Assessment / Plan
Gen-awake, alert, NAD, confused
HEENT-NC, AT, anicteric, clear oral mm
Neck-supple
CV-reg, no M, +S1/S2
Lungs-decreased breath sounds bilaterally
Abd-soft, NT, ND
Ext-mild bilateral lower extremity edema
Musculoskeletal-no cyanosis, clubbing
Skin-warm and dry, bilateral lower extremity hyperpigmentation from knees to ankle without warmth
Neuro-grossly non-focal
Psych-calm, cooperative
Hospital-acquired delirium -period of agitation noted last night requiring lorazepam and Haldol. Psychiatry input noted.
Acute hypoxic respiratory failure -due to bilateral pneumonia. Stable on 2 L nasal cannula oxygen. Has underlying chronic lung disease, COPD.
Sepsis due to community-acquired pneumonia -bilateral infiltrates noted on chest x-ray. Continue current antibiotics. Blood cultures negative so far. Urinary antigens negative. COVID-negative.
Acute on chronic anemia -hemoglobin improved after transfusion, 8.3 today. Received 1 unit of blood so far. No obvious bleeding. No documented bowel movements in the hospital.
Anemia labs reviewed. B12 is 312, folic acid 5.0, iron panel not entirely consistent with iron deficiency. MCV noted to be low at 77. Suspect inflammatory anemia but cannot rule out occult bleeding. Monitor hemoglobin for now.
Pyuria -rule out UTI. Urine culture 05/01 does note greater than 100,000 Proteus, awaiting final report.
Chronic bilateral lower extremity venous stasis dermatitis -Reed wrap compression therapy ordered.
Cognitive impairment -suspect underlying dementia. Daughter Deborah admits to mild chronic confusion in her mother. Will need follow-up as outpatient.
CKD 3B -stable.
COPD without exacerbation -on chronic prednisone.
Fibromyalgia
OHS -unclear if she is on BiPAP at the intermediate.
Essential hypertension -stable.
DM2 without hyperglycemia -she is on Lantus 8 units at bedtime in the intermediate, Jardiance 10 mg daily. Glucose 88 this morning.
Hypothyroidism -levothyroxine. Check TSH.
Hyperlipidemia -atorvastatin.
Chronic pain syndrome/chronic opiate dependence -chronic lower back pain. Uses a fentanyl patch at the lowest dose, as needed oxycodone.
Metastatic melanoma
Obesity due to excess calories
Full code
Dispo -back to intermediate when medically stable.
I left a voicemail for daughter Kely on 05/02 to call me back. Tried calling her again today but went to voicemail.
Updated patient's daughter Deborah Narayan on the phone again today. Deborah does not have POA and cannot change her mother's CODE STATUS. Deborah prefers DNR status but will leave it up to her sister Kely who does have POA.
Anticipated Discharge: Within 24 hours
Subjective/Interval History
-
Date of Service: May 03, 2025
Patient seen and examined. No complaints.
Objective Data
-
Labs:
Laboratory Results
05/03/25
07:43
WBC 14.4 H
Hgb 8.3 L D
Hct 28.5 L
Plt Count 349
Vital Signs:
Vital Signs
Temp Pulse Resp BP Pulse Ox
98.8 F 68 15 157/74 93
05/03/25 07:12 05/03/25 07:50 05/03/25 07:50 05/03/25 07:12 05/03/25 07:50
I&O
05/02/25 05/03/25 05/04/25
06:59 06:59 06:59
Intake Total 250 / 250
Balance 250 / 250
Review of Systems
-
History Source: Patient
All other systems: Reviewed and negative
[2025-05-03 14:46] LABS: TSH Reflex To Free T4 0.38 uIU/ml (0.47-4.68)
[2025-05-03 15:15] LABS: Free T4 1.72 ng/dl (0.78-2.19)
--- NOTE | 2025-05-03 15:38 | CM ---
manager produce reviewed patient's chart and met with patient and patient was admitted from [facility], welfare case worker spoke with admissions at [facility], Nicole [phone] and plan is for patient to return to [place], patient
is currently requiring 4 point restraints, psychiatry following patient.
Plan; To follow up with admissions at [facility].
[2025-05-03 15:45] VITALS: BP 158/94
[2025-05-03 17:23] LABS: Glucose - Point of Care 113 mg/dl (70-99)
[2025-05-03] MEDS: ROCEPHIN 2000 MG IV (19:34)
[2025-05-03] MEDS: STERILE WATER FOR INJECTION 20 ML IV (19:35)
[2025-05-03] MEDS: MELATONIN 6 MG PO (21:47)
[2025-05-03] MEDS: LIPITOR 20 MG PO (21:47)
[2025-05-03] MEDS: TOPROL XL 100 MG PO (21:47)
[2025-05-03] MEDS: NEURONTIN 600 MG PO (21:48)
[2025-05-03 21:50] LABS: Glucose - Point of Care 118 mg/dl (70-99)
[2025-05-03] MEDS: LANTUS 0.05 UNITS SC (21:50)
[2025-05-03 23:00] VITALS: BP 140/90
[2025-05-04] MEDS: ROXICODONE 5 MG PO ×2 (01:49→20:05)
[2025-05-04] MEDS: SYNTHROID 88 MCG PO (05:02)
[2025-05-04 07:20] VITALS: BP 170/90
[2025-05-04] MEDS: DUONEB 3 ML INH ×3 (07:43→19:28)
[2025-05-04 08:14] LABS: Glucose - Point of Care 92 mg/dl (70-99)
[2025-05-04] MEDS: FARXIGA 10 MG PO (09:04)
[2025-05-04] MEDS: HEPARIN 5000 UNITS SC ×2 (09:04→17:34)
[2025-05-04] MEDS: LEXAPRO 5 MG PO (09:04)
[2025-05-04] MEDS: ZYLOPRIM 100 MG PO (09:04)
[2025-05-04] MEDS: PEPCID 20 MG PO (09:04)
[2025-05-04] MEDS: NEURONTIN 300 MG PO (09:04)
[2025-05-04] MEDS: VIBRAMYCIN 100 MG PO ×2 (09:04→20:00)
[2025-05-04] MEDS: DELTASONE 10 MG PO (09:04)
[2025-05-04] MEDS: DESENEX/MITRAZOL/ZEASORB 1 APPLIC TOPICAL ×2 (09:05→20:01)
[2025-05-04] MEDS: ZINC OXIDE OINTMENT 1 APPLIC TOPICAL ×3 (09:10→21:27)
[2025-05-04 09:43] LABS: ALT (SGPT) 14 U/L (0-35); AST (SGOT) 26 U/L (14-36); Albumin 3.1 g/dl (3.5-5.0); Alkaline Phosphatase 108 U/L (38-126); Blood Urea Nitrogen 19 mg/dl (7-17); Calcium 9.2 mg/dl (8.4-10.2); Carbon Dioxide 30 mmol/L (22-30); Chloride 104 mmol/L (98-107); Estimated Creatinine Clearance 33 ml/min; Glucose 75 mg/dl (70-99); Potassium 4.2 mmol/L (3.5-5.1); Sodium 141 mmol/L (135-145); Total Bilirubin 0.5 mg/dl (0.2-1.3); Total Protein 5.5 g/dl (6.3-8.2); eGFR 45.19
--- NOTE | 2025-05-04 09:47 | CM ---
Addendum entered by Fernanda Lugo 05/04/25 10:23:
[facility]
Report [phone]

Original Note:
donor relations manager reviewed patient's chart and met with patient and spoke with nursing, patient has been off restraints since yesterday at 10am, per admissions at [facility] patient needed to be off restraints for 24 hours before patient can return. Case
projects manager spoke with Nicole [phone] in admissions, and made her aware patient has been off restraints for over 24 hours.
Plan; Patient to return to [facility] when stable, patient has been off restraints for over 24 hours.
[2025-05-04 09:49] LABS: % Basophils 0.3 % (0-2); % Eosinophils 0.5 % (0-6); % Monocytes 12.5 % (1.7-9.3); Hematocrit 30.6 % (37.0-47.0); Hemoglobin 8.6 g/dL (12.0-16.0); Mean Corp Hgb Conc. 28.1 g/dL (33.0-37.0); Mean Corpuscular Hgb 22.1 pg (27.0-31.0); Mean Corpuscular Volume 78.7 fL (81.0-99.0); Mean Platelet Volume 9.4 fL (7.4-10.4); Platelet Count 380 10^3/uL (130-400); Red Blood Cell Count 3.89 10^6/uL (4.20-5.40); Red Cell Dist. Width 17.7 % (11.5-14.5); White Blood Cell Count 15.3 10^3/uL (4.8-10.8)
[2025-05-04 09:50] LABS: % Immature Granulocytes 0.7 % (0-0.5); Absolute Eosinophils 0.1 10^3/uL (0-0.7); Absolute Immature Granulocytes 0.1 10^3/uL (0-0.05); Absolute Lymphocytes 1.7 10^3/uL (1.2-3.4); Absolute Monocytes 1.9 10^3/uL (0.1-0.6); Absolute Neutrophils 11.5 10^3/uL (1.4-6.5); Nucleated Red Blood Cells % 0 %
--- NOTE | 2025-05-04 10:15 | W.PN.UPDATE ---
Update Note
Progress Note Update
patient seen chart reviewed. spoke with nursing. patient was alert and quite pleasant this am. no vestige of the agitation and combativeness seen a couple of nights ago. she was able to engage in discussion with me. she may still be a little
confused...she confused how many kids and grandkids she has but was redirectable. she has not required any prns in the past 24 hours. she told me a little bit about her life at [facility]. she said it was better early on but things have gone downhill a
bit eg the food. will sign off at this point as i suspect she will be dc in the not too distant future.
--- NOTE | 2025-05-04 11:04 | W.PN.HOSP.TC ---
Today's Communication/Plan
-
Discharge
Assessment / Plan
Assessment / Plan
Gen-awake, alert, NAD
HEENT-NC, AT, anicteric, clear oral mm
Neck-supple
CV-reg, no M, +S1/S2
Lungs-decreased breath sounds bilaterally
Abd-soft, NT, ND
Ext-mild bilateral lower extremity edema, compression wraps both legs
Musculoskeletal-no cyanosis, clubbing
Skin-warm and dry, bilateral lower extremity hyperpigmentation from knees to ankle without warmth
Neuro-grossly non-focal
Psych-calm, cooperative
Hospital-acquired delirium -resolved. Mental status back to baseline. Psychiatry input noted.
Acute hypoxic respiratory failure -due to bilateral pneumonia. Stable on 2 L nasal cannula oxygen. Has underlying chronic lung disease, COPD. Wean down oxygen as able.
Sepsis due to community-acquired pneumonia -bilateral infiltrates noted on chest x-ray. Clinically improving, fever resolved. Mild leukocytosis noted, 15.3k. Blood cultures negative so far. Urinary antigens negative. COVID-negative.
Acute on chronic anemia -hemoglobin improved after transfusion, improved to 8.6 today. Received 1 unit of blood so far. No obvious bleeding. No documented bowel movements in the hospital. Does have a history of postmenopausal vaginal bleeding
with abnormal endometrium on pelvic ultrasound. Patient declined workup according to PCP.
Anemia labs reviewed. B12 is 312, folic acid 5.0, iron panel not entirely consistent with iron deficiency. MCV noted to be low at 77. Suspect inflammatory anemia but cannot rule out occult bleeding. Monitor hemoglobin for now.
Proteus UTI -culture and sensitivity reviewed. Can use Augmentin.
Chronic bilateral lower extremity venous stasis dermatitis -continue compression therapy with Reed wraps.
Cognitive impairment -suspect underlying dementia. Daughter Deborah admits to mild chronic confusion in her mother. Will need follow-up as outpatient.
CKD 3B -stable.
COPD without exacerbation -on chronic prednisone.
Fibromyalgia
OHS -unclear if she is on BiPAP at the [facility].
Essential hypertension -stable.
DM2 without hyperglycemia -she is on Lantus 8 units at bedtime in the [facility], Jardiance 10 mg daily. Glucose 92 this morning.
Hypothyroidism -levothyroxine. TSH 0.38, free T4 1.7. Recommend repeating labs in 4 weeks as outpatient.
Hyperlipidemia -atorvastatin.
Chronic pain syndrome/chronic opiate dependence -chronic lower back pain. Uses a fentanyl patch at the lowest dose, as needed oxycodone.
Metastatic melanoma
Obesity due to excess calories
Full code
Dispo -medically stable for discharge back to [facility]. Updated case management, PCP, daughter Deborah on the phone. [place] text sent to primary care physician, Dr. Mohan, with an update.
32 minutes spent in discharge process.
I left a voicemail for daughter Kely on 05/02 to call me back. Tried calling her again today but went to voicemail.
Anticipated Discharge: Today
Subjective/Interval History
-
Date of Service: May 04, 2025
Patient seen and examined, no complaints. States shortness of breath has resolved.
Objective Data
-
Labs:
Laboratory Results
05/04/25
08:43
WBC 15.3 H
Hgb 8.6 L
Hct 30.6 L
Plt Count 380
Sodium 141
Potassium 4.2
Chloride 104
Carbon Dioxide 30
BUN 19 H
Creatinine 1.2 H
Glucose 75
Calcium 9.2
Total Bilirubin 0.5
AST 26
ALT 14
Alkaline Phosphatase 108
Vital Signs:
Vital Signs
Temp Pulse Resp BP Pulse Ox
98.1 F 79 16 170/90 99
05/04/25 07:20 05/04/25 07:44 05/04/25 07:44 05/04/25 07:20 05/04/25 07:44
I&O
05/03/25 05/04/2525
06:59 06:59 06:59
Intake Total 250 / 250 480 / 480
Balance 250 / 250 480 / 480
Review of Systems
-
History Source: Patient
All other systems: Reviewed and negative
[2025-05-04 11:12] LABS: Glucose - Point of Care 78 mg/dl (70-99)
--- NOTE | 2025-05-04 11:25 | W.DS.TRANS ---
DC Summary - [employer]
-
Discharge Instructions:
Discharge Diagnosis/Procedures Sepsis, pneumonia, UTI, anemia
Diet Diabetic, Carb Controlled
Activity With assistance
Driving Restrictions No driving
Bathing Restrictions None
Blood Work CBC in 1 week
Instructions:
Stand-Alone Forms:
Changes to Home Medications: No
Discharge Medications:
DC Medications w/original date entered in [employer]
atorvastatin 20 mg tablet 20 mg PO HS High cholesterol 09/14/15
metoprolol succinate 100 mg tablet,extended release 24 hr 100 mg PO HS Heart disease/condition 09/14/15
allopurinol 100 mg tablet 100 mg PO DAILY Gout 08/22/21
gabapentin 300 mg capsule 300 mg PO DAILY Pain 08/22/21
melatonin 3 mg tablet 6 mg PO HS Sleep 09/15/21
famotidine 20 mg tablet 20 mg PO DAILY Gastrointestinal issue 02/04/23
torsemide 20 mg tablet 40 mg PO DAILY Fluid retention/Swelling 02/04/23
Calazime Paste 1 applic topical BID vaginal excoriation 11/19/23
balsam daniel-zinc oxide topical ointment 1 applic topical TID apply to sacrum &buttocks 03/06/24
mineral oil-hydrophil petrolat topical ointment 1 applic topical BID B/L LE 03/06/24
nystatin 100,000 unit/gram topical powder 1 applic topical BID under R breast 03/06/24
sodium phosphates 19 gram-7 gram/118 mL enema (Fleet Enema) 118 ml AZ DAILYPRN PRN if no bm x 4 days 03/06/24
acetaminophen 500 mg tablet (Tylenol Extra Strength) 1,000 mg PO TID Pain 12/15/24
empagliflozin 10 mg tablet (Jardiance) 10 mg PO DAILY Diabetes 12/15/24
escitalopram oxalate 5 mg tablet (Lexapro) 5 mg PO DAILY Depression 12/15/24
insulin glargine 100 unit/mL (3 mL) subcutaneous pen (Lantus Solostar U-100 Insulin) 8 units SC HS Diabetes 12/15/24
ipratropium 0.5 mg-albuterol 3 mg (2.5 mg base)/3 mL nebulization soln 3 ml inhalation R Q6HPRN PRN cough/wheezing 12/15/24
lidocaine HCl 4 % topical cream (Aspercreme (lidocaine HCl)) 1 applic topical Q4HPRN PRN right hip pain 12/15/24
ondansetron HCl 4 mg tablet 4 mg PO Q6HPRN PRN nausea/vomiting 12/15/24
bisacodyl 10 mg rectal suppository (Dulcolax (bisacodyl)) 10 mg AZ Q72H PRN if no BM x 3 days 05/01/25
fentanyl 12 mcg/hr transdermal patch 1 patch transdermal Q72H Pain 05/01/25
gabapentin 300 mg capsule 600 mg PO HS Pain 05/01/25
hydrocortisone 1 % topical cream (Preparation H Hydrocortisone) 1 applic topical Q6HPRN PRN apply to rectum 05/01/25
levothyroxine 88 mcg tablet (Levoxyl) 88 mcg PO DAILY Thyroid 05/01/25
lidocaine 5 % topical cream 1 applic topical TID apply to labia 05/01/25
loperamide 2 mg capsule 2 mg PO [id number] PRN diarrhea 05/01/25
magnesium hydroxide 400 mg/5 mL oral suspension (Milk of Magnesia) 30 ml PO HSPRN PRN if no BM x 2 days 05/01/25
nystatin 100,000 unit/gram topical powder 1 applic topical PRN PRN apply to under breasts 05/01/25
oxycodone 5 mg tablet 5 mg PO Q4HPRN PRN severe chronic pain 05/01/25
potassium chloride 20 mEq tablet,extended release(part/cryst) 20 meq PO DAILY Electrolyte Repletion 05/01/25
prednisone 10 mg tablet 10 mg PO DAILY Anti-Inflammatory 05/01/25
amoxicillin 250 mg-potassium clavulanate 62.5 mg/5 mL oral suspension 10 ml PO TID #100 mL 05/04/25
Home Medication Changes
Pending Results: No
[2025-05-04 12:01] VITALS: BP 139/84; PULSE 93; O2SAT 98
[2025-05-04 14:44] VITALS: BP 135/71
[2025-05-04] MEDS: DUONEB INH (15:34)
--- NOTE | 2025-05-04 15:40 | PTCARENOTE ---
Patient suddenly very agitated. Grabbing and hitting staff and ambulance attendants. Patient screaming and refusing to discharge. Dr. Jiang notified. category manager at bedside. Ambulance attendants leaving, stating 'you will need to reschedule the
sisal picker'.
[2025-05-04] MEDS: HALDOL 2.5 MG IM (16:23)
[2025-05-04 16:25] VITALS: BP 155/84
--- NOTE | 2025-05-04 16:25 | PTCARENOTE ---
Patient setting off be3d alarm. Attempting to stand saying 'I'm getting out of here'. BVecoming aggressive with staff. Staff attempting to deescalate situation and maintain patient safety. Patient assisted back to bed. At that time, a 4cm x 1 cm
skin tear was noted to patient's R forearm. Dr. Jiang notified. IM Haldol given. Patient very quickly sedated. Vital stable.
[2025-05-04 16:57] LABS: Glucose - Point of Care 108 mg/dl (70-99)
--- NOTE | 2025-05-04 17:10 | PTCARENOTE ---
Patient in and out of sedation. At times agitated and aggressive with staff. Iv accessed reestablished. Patient quickly removed IV site. Dressing placed to R forearm skin tear.
[2025-05-04] MEDS: AUGMENTIN 875 MG/125 MG 1 TABLET PO (20:00)
[2025-05-04 21:11] LABS: Glucose - Point of Care 105 mg/dl (70-99)
[2025-05-04] MEDS: DURAGESIC 12 MCG/HR PATCH 1 PATCH TRANSDERM (21:18)
[2025-05-04] MEDS: LANTUS 0.05 UNITS SC (21:19)
[2025-05-04] MEDS: NEURONTIN 600 MG PO (21:20)
[2025-05-04] MEDS: MELATONIN 6 MG PO (21:20)
[2025-05-04] MEDS: LIPITOR 20 MG PO (21:21)
[2025-05-04] MEDS: TOPROL XL 100 MG PO (21:21)
[2025-05-04 23:45] VITALS: BP 126/53
[2025-05-05] MEDS: HEPARIN 5000 UNITS SC ×4 (00:58→22:23)
[2025-05-05] MEDS: SYNTHROID 88 MCG PO (05:31)
[2025-05-05 07:11] VITALS: BP 163/86
[2025-05-05 07:36] LABS: Glucose - Point of Care 88 mg/dl (70-99)
[2025-05-05] MEDS: DUONEB 3 ML INH ×4 (08:02→19:27)
[2025-05-05] MEDS: VIBRAMYCIN 100 MG PO (09:10)
[2025-05-05] MEDS: ZYLOPRIM 100 MG PO (09:10)
[2025-05-05] MEDS: DELTASONE 10 MG PO (09:11)
[2025-05-05] MEDS: FARXIGA 10 MG PO (09:12)
[2025-05-05] MEDS: AUGMENTIN 875 MG/125 MG 1 TABLET PO ×2 (09:12→19:14)
[2025-05-05] MEDS: LEXAPRO 5 MG PO (09:12)
[2025-05-05 09:13] LABS: % Basophils 0.2 % (0-2); % Eosinophils 0.1 % (0-6); % Immature Granulocytes 0.6 % (0-0.5); % Lymphocytes 8.8 % (20.5-51.1); % Monocytes 12.6 % (1.7-9.3); % Neutrophils 77.7 % (42.2-75.2); Absolute Immature Granulocytes 0.1 10^3/uL (0-0.05); Absolute Lymphocytes 1.4 10^3/uL (1.2-3.4); Absolute Neutrophils 12.1 10^3/uL (1.4-6.5); Hematocrit 31.5 % (37.0-47.0); Hemoglobin 8.9 g/dL (12.0-16.0); Mean Corp Hgb Conc. 28.3 g/dL (33.0-37.0); Mean Corpuscular Hgb 21.9 pg (27.0-31.0); Mean Corpuscular Volume 77.6 fL (81.0-99.0); Mean Platelet Volume 9.5 fL (7.4-10.4); Nucleated Red Blood Cells % 0.1 %; Platelet Count 402 10^3/uL (130-400); Red Blood Cell Count 4.06 10^6/uL (4.20-5.40); Red Cell Dist. Width 18.3 % (11.5-14.5); White Blood Cell Count 15.6 10^3/uL (4.8-10.8)
[2025-05-05] MEDS: NEURONTIN 300 MG PO (09:13)
[2025-05-05] MEDS: PEPCID 20 MG PO (09:13)
[2025-05-05] MEDS: ZINC OXIDE OINTMENT 1 APPLIC TOPICAL ×3 (09:14→22:24)
[2025-05-05] MEDS: DESENEX/MITRAZOL/ZEASORB 1 APPLIC TOPICAL ×2 (09:14→19:14)
[2025-05-05 09:43] LABS: Blood Urea Nitrogen 24 mg/dl (7-17); Calcium 9.1 mg/dl (8.4-10.2); Carbon Dioxide 29 mmol/L (22-30); Chloride 104 mmol/L (98-107); Estimated Creatinine Clearance 28 ml/min; Glucose 81 mg/dl (70-99); Potassium 4.5 mmol/L (3.5-5.1); Sodium 142 mmol/L (135-145); eGFR 37.56
--- NOTE | 2025-05-05 10:57 | CM ---
Chart reviewed. Patient is LTC resident at [facility]. Patient was due to d/c yesterday, however, patient was aggressive at d/c towards ambulance crew and they did not resume w/ transportation. Patient was given haldol at 4:23 pm yesterday.
Spoke w/ [facility] admissions, confirmed that patient will have to be off of haldol for 24 hours and can try and re-admit tomorrow pending there's no other issues.
Will need ambulance transport
Updated hospitalist
[facility]
Report [phone]

Plan: Return to [facility], hopeful tomorrow
[2025-05-05 11:42] LABS: Glucose - Point of Care 103 mg/dl (70-99)
--- NOTE | 2025-05-05 11:44 | W.PN.HOSP.TC ---
Today's Communication/Plan
-
Discharge
Assessment / Plan
Assessment / Plan
Gen-awake, alert, NAD
HEENT-NC, AT, anicteric, clear oral mm
Neck-supple
CV-reg, no M, +S1/S2
Lungs-decreased breath sounds bilaterally
Abd-soft, NT, ND
Ext-mild bilateral lower extremity edema, compression wraps both legs
Musculoskeletal-no cyanosis, clubbing
Skin-warm and dry, bilateral lower extremity hyperpigmentation from knees to ankle without warmth
Neuro-grossly non-focal
Psych-calm, cooperative
Hospital-acquired delirium -resolved. Mental status back to baseline. Psychiatry input noted.
Acute hypoxic respiratory failure -due to bilateral pneumonia. Stable on 2 L nasal cannula oxygen. Has underlying chronic lung disease, COPD. Wean down oxygen as able.
Sepsis due to community-acquired pneumonia -bilateral infiltrates noted on chest x-ray. Clinically improving, fever resolved. Mild leukocytosis noted. Blood cultures negative so far. Urinary antigens negative. COVID-negative. Antibiotics changed
to oral.
Acute on chronic anemia -hemoglobin improved after transfusion, improved to 8.9 today. Received 1 unit of blood so far. No obvious bleeding. No documented bowel movements in the hospital. Does have a history of postmenopausal vaginal bleeding
with abnormal endometrium on pelvic ultrasound. Patient declined workup according to PCP.
Anemia labs reviewed. B12 is 312, folic acid 5.0, iron panel not entirely consistent with iron deficiency. MCV noted to be low at 77. Suspect inflammatory anemia but cannot rule out occult bleeding. Monitor hemoglobin for now. MMA level pending.
Proteus UTI -culture and sensitivity reviewed. Can use Augmentin.
Chronic bilateral lower extremity venous stasis dermatitis -continue compression therapy with Reed wraps.
Cognitive impairment -suspect underlying dementia. Daughter Deborah admits to mild chronic confusion in her mother. Will need follow-up as outpatient.
CKD 3B -stable.
COPD without exacerbation -on chronic prednisone.
Fibromyalgia
OHS -unclear if she is on BiPAP at the [place] [facility].
Essential hypertension -stable.
DM2 without hyperglycemia -she is on Lantus 8 units at bedtime in the [place] [facility], Jardiance 10 mg daily.
In the hospital she is on Lantus 5 units at bedtime, Farxiga 10 mg daily, aspart low resistance scale. Glucoses here are controlled.
Hypothyroidism -levothyroxine. TSH 0.38, free T4 1.7. Recommend repeating labs in 4 weeks as outpatient.
Hyperlipidemia -atorvastatin.
Chronic pain syndrome/chronic opiate dependence -chronic lower back pain. Uses a fentanyl patch at the lowest dose, as needed oxycodone.
Metastatic melanoma
Obesity due to excess calories
Full code
Dispo -medically stable for discharge back to [facility].
Anticipated Discharge: Today
Subjective/Interval History
-
Date of Service: May 05, 2025
Patient seen and examined. No complaints.
Objective Data
-
Labs:
Laboratory Results
05/05/25
08:48
WBC 15.6 H
Hgb 8.9 L
Hct 31.5 L
Plt Count 402 H
Sodium 142
Potassium 4.5
Chloride 104
Carbon Dioxide 29
BUN 24 H
Creatinine 1.4 H
Glucose 81
Calcium 9.1
Vital Signs:
Vital Signs
Temp Pulse Resp BP Pulse Ox
98.0 F 81 18 163/86 93
05/05/25 07:11 05/05/25 11:22 05/05/25 11:22 05/05/25 07:11 05/05/25 11:22
I&O
05/04/25 05/05/25 05/06/25
06:59 06:59 06:59
Intake Total 480 / 480
Balance 480 / 480
Review of Systems
-
History Source: Patient
All other systems: Reviewed and negative
[2025-05-05] MEDS: ROXICODONE 5 MG PO ×2 (11:53→22:23)
--- NOTE | 2025-05-05 12:58 | PTCARENOTE ---
Assumed care of pt from previous nurse. Pt with some discomfort to abdomen, pain medication provided with positive results. Pt call caraballo is within reach, pt rings sheeba., bed alarm in place. will cont to monitor.
[2025-05-05 15:38] VITALS: BP 169/89
[2025-05-05 17:33] LABS: Glucose - Point of Care 114 mg/dl (70-99)
--- NOTE | 2025-05-05 18:39 | PTCARENOTE ---
Pt incontinent of stool, becoming increasingly more confused and agitated during the shift. Pt with turning and repositioning yelling out, hitting, trying to bite and spit at staff. Pt grabbed this RN's arm and tried to scratch it, in reaching for
pt's wrist to stop her from scratching this RN pt pulled wrist back to strike RN again and received a skin tear to the left hand. Covered and dressed. Pt provided incontinent care.
[2025-05-05] MEDS: DUONEB INH (19:24)
[2025-05-05 22:17] LABS: Glucose - Point of Care 101 mg/dl (70-99)
[2025-05-05] MEDS: TOPROL XL 100 MG PO (22:19)
[2025-05-05] MEDS: MELATONIN 6 MG PO (22:20)
[2025-05-05] MEDS: NEURONTIN 600 MG PO (22:20)
[2025-05-05] MEDS: LIPITOR 20 MG PO (22:21)
[2025-05-05] MEDS: LANTUS 0.05 UNITS SC (22:24)
[2025-05-05 23:00] VITALS: BP 154/78
[2025-05-06] MEDS: SYNTHROID 88 MCG PO (05:48)
[2025-05-06] MEDS: ROXICODONE 5 MG PO (05:50)
[2025-05-06] MEDS: NEURONTIN PO ×2 (08:55→09:09)
[2025-05-06] MEDS: FARXIGA PO ×2 (08:55→09:09)
[2025-05-06] MEDS: AUGMENTIN 875 MG/125 MG 1 TABLET PO (08:55)
[2025-05-06] MEDS: ZYLOPRIM PO ×2 (08:55→09:09)
[2025-05-06] MEDS: LEXAPRO PO ×2 (08:55→09:09)
[2025-05-06 08:56] LABS: Glucose - Point of Care 81 mg/dl (70-99)
[2025-05-06] MEDS: PEPCID PO ×2 (08:56→09:09)
[2025-05-06] MEDS: DESENEX/MITRAZOL/ZEASORB 1 APPLIC TOPICAL (08:56)
[2025-05-06] MEDS: DELTASONE PO ×2 (08:56→09:08)
[2025-05-06] MEDS: BenGay-Like 1 APPLIC TOPICAL (08:57)
[2025-05-06] MEDS: HEPARIN 5000 UNITS SC (08:57)
[2025-05-06] MEDS: ZINC OXIDE OINTMENT 1 APPLIC TOPICAL (08:58)
--- NOTE | 2025-05-06 08:59 | CM ---
Spoke w/ [facility] to review patient returning today as patient has been 24 hours without any chemical or physical restraints.
Agreeable for patient to return today, requesting transport time any time after 11 am
Ambulance transport scheduled for 1:00 pm
[facility]
Report [phone]

Plan: Return to [facility] today
--- NOTE | 2025-05-06 09:10 | PTCARENOTE ---
Pt confused/angry/agitated/uncooperative. Says she just wants to be left alone. Took PO augmentin then refused to take any additional pills.
--- NOTE | 2025-05-06 11:04 | W.PN.HOSP.TC ---
Today's Communication/Plan
-
Discharge
Assessment / Plan
Assessment / Plan
Gen-awake, alert, NAD
HEENT-NC, AT, anicteric, clear oral mm
Neck-supple
CV-reg, no M, +S1/S2
Lungs-decreased breath sounds bilaterally
Abd-soft, NT, ND
Ext-mild bilateral lower extremity edema, compression wraps both legs
Musculoskeletal-no cyanosis, clubbing
Skin-warm and dry, bilateral lower extremity hyperpigmentation from knees to ankle without warmth
Neuro-grossly non-focal
Psych-calm, cooperative
Hospital-acquired delirium -resolved. Mental status back to baseline. Psychiatry input noted.
Acute hypoxic respiratory failure -due to bilateral pneumonia. Stable on 2 L nasal cannula oxygen. Has underlying chronic lung disease, COPD. Wean down oxygen as able.
Sepsis due to community-acquired pneumonia -bilateral infiltrates noted on chest x-ray. Clinically improving, fever resolved. Mild leukocytosis noted. Blood cultures negative so far. Urinary antigens negative. COVID-negative. Antibiotics changed
to oral.
Acute on chronic anemia -hemoglobin improved after transfusion, improved to 8.9 today. Received 1 unit of blood so far. No obvious bleeding. No documented bowel movements in the hospital. Does have a history of postmenopausal vaginal bleeding
with abnormal endometrium on pelvic ultrasound. Patient declined workup according to PCP.
Anemia labs reviewed. B12 is 312, folic acid 5.0, iron panel not entirely consistent with iron deficiency. MCV noted to be low at 77. Suspect inflammatory anemia but cannot rule out occult bleeding. Monitor hemoglobin for now. MMA level pending.
Proteus UTI -culture and sensitivity reviewed. Can use Augmentin.
Chronic bilateral lower extremity venous stasis dermatitis -continue compression therapy with Reed wraps.
Cognitive impairment -suspect underlying dementia. Daughter Deborah admits to mild chronic confusion in her mother. Will need follow-up as outpatient.
CKD 3B -stable.
COPD without exacerbation -on chronic prednisone.
Fibromyalgia
[facility] -[facility]
Essential hypertension -stable.
DM2 without hyperglycemia -she is on Lantus 8 [facility], Jardiance 10 mg daily.
In the hospital she is on Lantus 5 units at bedtime, Farxiga 10 mg daily, aspart low resistance scale. Glucoses here are controlled.
Hypothyroidism -levothyroxine. TSH 0.38, free T4 1.7. Recommend repeating labs in 4 weeks as outpatient.
Hyperlipidemia -atorvastatin.
Chronic pain syndrome/chronic opiate dependence -chronic lower back pain. Uses a fentanyl patch at the lowest dose, as needed oxycodone.
Metastatic melanoma
Obesity due to excess calories
Full code
Dispo -medically [facility].
Anticipated Discharge: Today
Subjective/Interval History
-
Date of Service: May 06, 2025
Patient seen and examined. She is awake and alert, not interacting with me today.
Objective Data
-
Vital Signs:
Vital Signs
Temp Pulse Resp BP Pulse Ox
98.4 F 91 18 154/78 97
05/05/25 23:00 05/05/25 23:00 05/05/25 23:00 05/05/25 23:00 05/05/25 23:00
I&O
05/05/25 05/06/25 05/07/25
06:59 06:59 06:59
Intake Total 1110 / 1110
Balance 1110 / 1110
Review of Systems
-
Unable to obtain full review of systems at this time due to: Dementia
History Source: Patient
All other systems: Reviewed and negative
[2025-05-06 12:12] LABS: Glucose - Point of Care 73 mg/dl (70-99)
[2025-05-06 13:05] VITALS: BP 170/78
--- NOTE | 2025-05-06 13:12 | PTCARENOTE ---
Attempted to call report to [facility] x 3 @1200, 1215, 1310 but no answer. Left message for call back. Pt picked up by ems crew at this time to take back to [facility]. PT argumentative but cooperative w/ transport.
[2025-05-07 07:55] LABS: Methylmalonic Acid 0.37 umol/L (0.00-0.40)
== END 2025-05-06 13:15 | DRG 871 ==
LOC: 4 WEST ACU 18:57
PROVIDERS: Internal Medicine; ADMITTING PHYSICIAN Internal Medicine; ATTENDING PHYSICIAN Hospitalist; CONSULT PHYSICIAN Psychiatry & Neurology Psychiatry; EMERGENCY PHYSICIAN Emergency Medicine; FAMILY PHYSICIAN Family Medicine
PROC: 30233N1 Transfusion of Nonautologous Red Blood Cells into Peripheral Vein, Percutaneous Approach (ICD-10-PCS; 2025-05-02)
DX: A41.9 Sepsis, unspecified organism (principal); G92.8 Other toxic encephalopathy; J18.9 Pneumonia, unspecified organism; J96.01 Acute respiratory failure with hypoxia; N39.0 Urinary tract infection, site not specified; C79.9 Secondary malignant neoplasm of unspecified site; F05 Delirium due to known physiological condition; F11.20 Opioid dependence, uncomplicated; J44.0 Chronic obstructive pulmonary disease with (acute) lower respiratory infection; E03.9 Hypothyroidism, unspecified; N18.32 Chronic kidney disease, stage 3b; E11.22 Type 2 diabetes mellitus with diabetic chronic kidney disease; E78.00 Pure hypercholesterolemia, unspecified; I12.9 Hypertensive chronic kidney disease with stage 1 through stage 4 chronic kidney disease, or unspecified chronic kidney disease; I25.10 Atherosclerotic heart disease of native coronary artery without angina pectoris; K21.9 Gastro-esophageal reflux disease without esophagitis; J45.909 Unspecified asthma, uncomplicated; M79.7 Fibromyalgia; D50.9 Iron deficiency anemia, unspecified; R26.2 Difficulty in walking, not elsewhere classified; C43.9 Malignant melanoma of skin, unspecified; E66.09 Other obesity due to excess calories; R45.1 Restlessness and agitation; G47.33 Obstructive sleep apnea (adult) (pediatric); N95.0 Postmenopausal bleeding; I87.2 Venous insufficiency (chronic) (peripheral); G89.4 Chronic pain syndrome; M54.50 Low back pain, unspecified; B96.4 Proteus (mirabilis) (morganii) as the cause of diseases classified elsewhere; R62.7 Adult failure to thrive; F03.90 Unspecified dementia, unspecified severity, without behavioral disturbance, psychotic disturbance, mood disturbance, and anxiety; Z96.653 Presence of artificial knee joint, bilateral; I25.2 Old myocardial infarction; Z85.828 Personal history of other malignant neoplasm of skin; Z88.1 Allergy status to other antibiotic agents; Z91.011 Allergy to milk products; Z91.018 Allergy to other foods; Z91.048 Other nonmedicinal substance allergy status; Z79.4 Long term (current) use of insulin; Z11.52 Encounter for screening for COVID-19; Z79.52 Long term (current) use of systemic steroids; Z68.32 Body mass index [BMI] 32.0-32.9, adult
CPT/HCPCS: 51701; 71046; 80048; 80053; 81003; 81015; 82607; 82728; 82746; 82805; 82962; 83540; 83550; 83605; 83880; 83921; 84439; 84443; 85025; 85027; 85045; 86850; 86900; 86901; 86920; 87040; 87070; 87086; 87088; 87186; 87449; 87811; 87899; 93005; 94640; 96374; 97163; 97530; 99285; P9016

== ENCOUNTER 2025-05-09 14:29 | Inpatient (IN) | payer MEDICARE, OTHER, SELFPAY ==
[2025-05-09] VITALS (13 sets, daily range): BP systolic 120–154; BP diastolic 52–140; BMI 36.5
[2025-05-09 09:01] LABS: Hematocrit 31.7 % (37.0-47.0); Hemoglobin 8.8 g/dL (12.0-16.0); Mean Corp Hgb Conc. 27.8 g/dL (33.0-37.0); Mean Corpuscular Volume 79.4 fL (81.0-99.0); Nucleated Red Blood Cells % 0 %; Platelet Count 376 10^3/uL (130-400); Red Cell Dist. Width 18.6 % (11.5-14.5)
--- NOTE | 2025-05-09 09:09 | ED.GENMED ---
History of Present Illness
General
Chief Complaint: Breathing Problem
Source: patient
Exam Limitations: none
Time Seen by Provider: 05/09/25 08:58
History of Present Illness
History of Present Illness:
84-year-old female presents from [facility]. Routine check of vital signs showed that she was hypoxic in the 70s at the facility and they sent her here. Patient states she is slightly short of breath but denies any pain. She was here
and discharged on 07 May. She was admitted for sepsis secondary to community-acquired pneumonia and acute hypoxemic respiratory failure. No reported fever. She has not been hypoxic since arrival. Patient is a difficult historian
Past History
Past History
ED Past Medical History: Asthma, CAD, GERD, HTN, Hypercholesterolemia, NIDDM, SD, Hypothyroidism and Other (melanoma,fibromyalgia, skin CA on face removed)
ED Past Surgical History: Orthopedic (Total knee surgery, right and left, carpal full release right and left, rotator cuff repair on the right) and Other (melanoma resection, and umbilical hernia repair, right ant. chest port)
Social History
Tobacco: Non-smoker
Alcohol: None
Drug: None
Personal:
Living: prison
Employment: Employed
Phy Exam
Physical Exam
Physical Exam:
General: Well-appearing female with mild increased work of breathing
HEENT: Normocephalic atraumatic
Heart: Regular rate and rhythm
Lungs: No obvious wheeze or rales
Extremities: Mild pitting edema bilateral lower EXTR
Skin: Warm no rash
Scores
Heart Failure Risk
Heart Failure Risk Score: Not Applicable
Course
Orders/Labs/Results
Orders:
Orders
05/09/25 08:32
Electrocardiogram (*1) Urgent
Reason for Study: Shortness of Breath
EKG- Treatment ONCE
05/09/25 08:43
CMP [Comprehensive Metabolic Panel] Urgent
Complete Blood Count/With Diff Urgent
05/09/25 09:07
CR Chest - 2 Views Urgent
Comment:
Reason For Exam: sob
05/09/25 09:16
NT-proBNP Urgent
Troponin I Urgent
05/09/25 11:43
CefTRIAXone [Rocephin] 1,000 mg IV NOW STA
Doxycycline [Vibramycin] 100 mg PO NOW STA
Abnormal Lab Results
05/09/25
08:43
WBC 17.9 H 10^3/uL
(4.8-10.8)
RBC 3.99 L 10^6/uL
(4.20-5.40)
Hgb 8.8 L g/dL
(12.0-16.0)
Hct 31.7 L %
(37.0-47.0)
MCV 79.4 L fL
(81.0-99.0)
MCH 22.1 L pg
(27.0-31.0)
MCHC 27.8 L g/dL
(33.0-37.0)
RDW 18.6 H %
(11.5-14.5)
Abs Immat Gran (auto) 0.2 H 10^3/uL
(0-0.05)
Absolute Neuts (auto) 14.2 H 10^3/uL
(1.4-6.5)
Absolute Monos (auto) 1.8 H 10^3/uL
(0.1-0.6)
Immature Gran % 1.0 H %
(0-0.5)
Neutrophils % 79.7 H %
(42.2-75.2)
Lymphocytes % 8.0 L %
(20.5-51.1)
Monocytes % 10.0 H %
(1.7-9.3)
BUN 37 H mg/dl
(7-17)
Creatinine 2.5 H mg/dL
(0.6-1.0)
Glucose 112 H mg/dl
(70-99)
Alkaline Phosphatase 128 H U/L
(38-126)
Total Protein 5.4 L g/dl
(6.3-8.2)
Albumin 3.0 L g/dl
(3.5-5.0)
05/09/25 08:43
05/09/25 08:43
Vital Signs
Initial and Last Documented VS:
Initial Vital Signs
Temp Pulse Resp BP Pulse Ox
98.4 F 80 18 141/64 94
05/09/25 08:29 05/09/25 08:29 05/09/25 08:29 05/09/25 08:29 05/09/25 08:29
Last Documented Vital Signs
Temp Pulse Resp BP Pulse Ox
98.4 F 77 17 120/54 93
05/09/25 08:29 05/09/25 10:45 05/09/25 10:45 05/09/25 10:00 05/09/25 09:11
MDM/Problems Addressed
Differential Diagnosis Includes:
Patient brought here by EMS from facility after they noticed her to be hypoxic. Patient slightly tachypneic but not hypoxic. Lungs are clear. Review of chart shows she had pneumonia. Will check labs, BNP troponin x-ray.
*Pulse Oximetry
SaO2: 93
Oxygen Mode of Delivery: Room air
Patient hypoxic: yes
*Critical Care Note
Total Time (30-74mins, 75-104mins- exclusive of procedures): Not Applicable
Update Note
Update Note:
Chest x-ray shows possible pulmonary metastasis versus inflammatory process. White blood cell count elevated above 17,000. Creatinine is 2.5 which is higher than baseline. Patient does drop to the upper 80s at times here and is requiring 2 L of
oxygen. Will restart Rocephin and doxycycline to cover for the potential for pneumonia given the elevated white blood cell count. Will stay in hospital for further evaluate
ED Attending Note
-
Portions of this chart may have been created with voice recognition software.� Occasional wrong word or��sound alike� substitutions may have occurred due to the inherent limitations of voice recognition software.
Discharge Plan
Departure
Patient Disposition: Admit
Date of Disposition: 05/09/25
Time of Disposition: 12:13
Presentation/result/management discussed w/ accepting MD/DO: Hospitalist
Discharge Problem:
Hypoxia, SPIKE (acute kidney injury)
Prescriptions:
No Action
metoprolol succinate 100 MG tablet extended release 24 hr
100 mg PO HS
atorvastatin 20 MG tablet
20 mg PO HS
allopurinol 100 MG tablet
100 mg PO DAILY
gabapentin 300 MG capsule
300 mg PO DAILY
melatonin 3 MG tablet
6 mg PO HS
torsemide 20 mg Tablet
40 mg PO DAILY
famotidine 20 mg Tablet
20 mg PO DAILY
mineral oil-hydrophil petrolat Ointment
1 applic TOPICAL BID
Fleet Enema 19-7 gram/118 mL Enema
118 ml NC DAILYPRN PRN (Reason: if no bm x 4 days)
nystatin 100,000 unit/gram Powder
1 applic TOPICAL BID
ipratropium-albuterol 0.5 mg-3 mg(2.5 mg base)/3 mL Solution For Nebulization
3 ml INHALATION R Q6HPRN PRN (Reason: sob/wheezing)
ondansetron HCl 4 mg Tablet
4 mg PO Q6HPRN PRN (Reason: nausea/vomiting)
acetaminophen [Tylenol Extra Strength] 500 mg Tablet
1,000 mg PO Q8HPRN PRN (Reason: mild pain)
escitalopram oxalate [Lexapro] 5 mg Tablet
5 mg PO DAILY
Jardiance 10 mg Tablet
10 mg PO DAILY
prednisone 10 mg tablet
10 mg PO DAILY
loperamide 2 mg Capsule
2 mg PO [id number] PRN (Reason: diarrhea)
levothyroxine [Levoxyl] 88 mcg Tablet
88 mcg PO DAILY
potassium chloride 20 mEq tablet,ER particles/crystals
20 meq PO DAILY
magnesium hydroxide [Milk of Magnesia] 400 mg/5 mL Suspension
30 ml PO HSPRN PRN (Reason: if no BM x 2 days)
bisacodyl [Dulcolax (bisacodyl)] 10 mg Suppository
10 mg NC Q72H PRN (Reason: if no BM x 3 days)
fentanyl 12 mcg/hr Patch 72 Hour
1 patch TRANSDERMAL Q72H
oxycodone 5 MG tablet
5 mg PO Q4HPRN PRN (Reason: severe pain)
gabapentin 600 mg Tablet
600 mg PO HS
hydrocortisone acetate 1 % Cream
1 applic topical Q6HPRN PRN (Reason: apply to rectum)
lidocaine 4 % Cream
1 applic TOPICAL Q4HPRN PRN (Reason: apply to right hip)
amoxicillin-pot clavulanate 500-125 mg Tablet
1 tab PO Q8H
Patient Comments:
05/09/2025, start date: 05/06/2025; end date: 05/11/2025.
insulin glargine [Lantus Solostar U-100 Insulin] 100 unit/mL (3 mL) Insulin Pen
8 unit SC HS
lidocaine 5 % Ointment
1 applic TOPICAL TID
Referrals:
Kyler Mohan MD [Family Provider, Family Practice]
Interventions
Interventions:
*ED COVID-19 Vaccine History Last Done: 05/09/25 08:29
ED- Cardiac Assessment Last Done: 05/09/25 08:29
ED- Pulmonary Assessment Last Done: 05/09/25 08:29
Discharge Date and Time
Print Language: ITALIAN
[2025-05-09 09:21] LABS: ALT (SGPT) 23 U/L (0-35); AST (SGOT) 31 U/L (14-36); Albumin 3.0 g/dl (3.5-5.0); Alkaline Phosphatase 128 U/L (38-126); Blood Urea Nitrogen 37 mg/dl (7-17); Calcium 9.3 mg/dl (8.4-10.2); Carbon Dioxide 30 mmol/L (22-30); Chloride 104 mmol/L (98-107); Glucose 112 mg/dl (70-99); Potassium 4.0 mmol/L (3.5-5.1); Sodium 140 mmol/L (135-145); Total Protein 5.4 g/dl (6.3-8.2); eGFR 18.73
[2025-05-09 09:51] LABS: Troponin I 0.013 ng/ml
[2025-05-09] MEDS: ROCEPHIN 1000 MG IV (11:49)
[2025-05-09] MEDS: VIBRAMYCIN 100 MG PO (11:49)
--- NOTE | 2025-05-09 12:12 | HPS.HSE ---
Family Physician
-
Family Physician: Kyler Mohan MD
Chief Complaint
-
Hypoxia
History of Present Illness
Patient is an 84 y/o female past medical history of diabetes mellitus, chronic kidney disease, hypertension, chronic pain syndrome, chronic anemia, metastatic melanoma and recent hospitalization for acute hypoxia secondary to bilateral pneumonia who
was sent from a local correction due to hypoxia. Patient was hospitalized from May 01 to May 06 with hypoxia secondary to bilateral pneumonia. That hospitalization was complicated by hospital acquired delirium as as worsening anemia requiring
blood transfusion. Today patient was noted to be hypoxia for staff at the facility with pulse ox 70% on RA, and she was sent to the emergency department for evaluation. Triage note indicates pulse ox was 93% on RA upon arrival to the emergency
department. Upon my evaluation patient is lethargic only answering a few questions with one word answers.
Medical History
Past Medical History
Past Medical History: Reports Other
Additional Past Medical History:
Diabetes Mellitus, Type II
CKD Stage IIIB
Essential Hypertension
Hyperlipidemia
Hypothyroidism
Metastatic Melanoma
Chronic Anemia
Chronic Pain Syndrome / Chronic Opioid Dependence
Fibromyalgia
Cognitive Impairment
Depression
Gout
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
Obesity due to Excess Calories
Obesity Hypoventilation Syndrome
Past Surgical History: Reports Other
Additional Past Surgical History:
Right Rotator Cuff
Bilateral Carpal Tunnel
Bilateral Total Knee Replacements
Umbilical Hernia Repair
Malignant Melanoma Resection Left Upper Arm
Social History
Tobacco: Non-smoker
Alcohol: None
Living: Correction
Family History
Family History: Not pertinent
Allergies / Home Medications
Allergies reflects when Allergies were last updated in [facility].
Home Medications with original date entered in [facility]
Allergy/Medication List:
Allergies
Allergy/AdvReac Type Severity Reaction Status Date / Time
caraballo pepper Allergy swelling Verified 05/01/25 20:33
mouth &
throat,
bloating,
cramping,
vomiting,
diarr
[place] [employer]ivatives Allergy DIARRHEA, Verified 05/01/25 16:39
swelling
of mouth,
breathing
difficulty
grass pollen Allergy Breathing Verified 05/01/25 20:33
trouble,
sneezing,
runny nose
house dust Allergy congestion Verified 05/01/25 20:33
&
wheezing,
sneezing,
runny nose
latex Allergy per NH Verified 05/01/25 16:39
documentation
levofloxacin (From Levaquin) Allergy Itching Verified 05/01/25 16:39
milk (Milk) Allergy diarrhea Verified 05/01/25 16:39
mold Allergy congestion Verified 05/01/25 20:33
&
wheezing,
sneezing,
runny nose
tomato Allergy Tongue Verified 05/01/25 16:39
Swelling
tree and shrub pollen Allergy MAPLE Verified 05/01/25 20:33
POLLEN-Breathing
trouble,
sneezing,
runny nose
bandages Allergy Rash Uncoded 05/01/25 16:39
Home Medications
atorvastatin 20 mg tablet 20 mg PO HS High cholesterol 09/14/15
metoprolol succinate 100 mg tablet,extended release 24 hr 100 mg PO HS Heart disease/condition 09/14/15
allopurinol 100 mg tablet 100 mg PO DAILY Gout 08/22/21
gabapentin 300 mg capsule 300 mg PO DAILY Pain 08/22/21
melatonin 3 mg tablet 6 mg PO HS Sleep 09/15/21
famotidine 20 mg tablet 20 mg PO DAILY Gastrointestinal issue 02/04/23
torsemide 20 mg tablet 40 mg PO DAILY Fluid retention/Swelling 02/04/23
mineral oil-hydrophil petrolat topical ointment 1 applic topical BID B/L LE 03/06/24
nystatin 100,000 unit/gram topical powder 1 applic topical BID under R breast 03/06/24
sodium phosphates 19 gram-7 gram/118 mL enema (Fleet Enema) 118 ml [place] DAILYPRN PRN if no bm x 4 days 03/06/24
acetaminophen 500 mg tablet (Tylenol Extra Strength) 1,000 mg PO Q8HPRN PRN mild pain 12/15/24
empagliflozin 10 mg tablet (Jardiance) 10 mg PO DAILY Diabetes 12/15/24
escitalopram oxalate 5 mg tablet (Lexapro) 5 mg PO DAILY Depression 12/15/24
ipratropium 0.5 mg-albuterol 3 mg (2.5 mg base)/3 mL nebulization soln 3 ml inhalation R Q6HPRN PRN sob/wheezing 12/15/24
ondansetron HCl 4 mg tablet 4 mg PO Q6HPRN PRN nausea/vomiting 12/15/24
bisacodyl 10 mg rectal suppository (Dulcolax (bisacodyl)) 10 mg NE Q72H PRN if no BM x 3 days 05/01/25
fentanyl 12 mcg/hr transdermal patch 1 patch transdermal Q72H Pain 05/01/25
levothyroxine 88 mcg tablet (Levoxyl) 88 mcg PO DAILY Thyroid 05/01/25
loperamide 2 mg capsule 2 mg PO [id number] PRN diarrhea 05/01/25
magnesium hydroxide 400 mg/5 mL oral suspension (Milk of Magnesia) 30 ml PO HSPRN PRN if no BM x 2 days 05/01/25
oxycodone 5 mg tablet 5 mg PO Q4HPRN PRN severe pain 05/01/25
potassium chloride 20 mEq tablet,extended release(part/cryst) 20 meq PO DAILY Electrolyte Repletion 05/01/25
prednisone 10 mg tablet 10 mg PO DAILY Anti-Inflammatory 05/01/25
amoxicillin 500 mg-potassium clavulanate 125 mg tablet 1 tab PO Q8H Infection 05/09/25
gabapentin 600 mg tablet 600 mg PO HS Pain 05/09/25
hydrocortisone acetate 1 % topical cream 1 applic topical Q6HPRN PRN apply to rectum 05/09/25
insulin glargine 100 unit/mL (3 mL) subcutaneous pen (Lantus Solostar U-100 Insulin) 8 unit SC HS Diabetes 05/09/25
lidocaine 4 % topical cream 1 applic topical Q4HPRN PRN apply to right hip 05/09/25
lidocaine 5 % topical ointment 1 applic topical TID apply to labia 05/09/25
Review of Systems
-
Unable to obtain full review of systems at this time due to: Acuity
Physical Exam
Vital Signs
Vital Signs
Temp Pulse Resp BP Pulse Ox
98.4 F 80 19 138/126 93
05/09/25 08:29 05/09/25 12:00 05/09/25 12:00 05/09/25 12:00 05/09/25 09:11
Physical Exam
General: Well Developed, Well Nourished and No Apparent Distress
HEENT: Anicteric, Moist mucous membranes and Oxygen (Nasal Cannula)
Respiratory: Decreased Breath Sounds (Poor Inspiratory Effort)
Cardiac: S1/S2 and Regular Rhythm; No Tachycardia
GI: Soft and Non Tender
Rectal: Deferred by Provider
Musculoskeletal: No Clubbing, No Cyanosis and Other (Chronic venous stasis and +1 pitting edema bilateral lower extremities)
Skin: Warm, Dry and Rash (Petechial Rash bilateral shoulders)
Neuro: Other (Patient unable to participate in neurologic evaluation due to lethargy)
Psych: Confused
Laboratory Results
-
05/09/25 08:43
05/09/25 08:43
Laboratory Results
Total Bilirubin 0.8 mg/dl (0.2-1.3) 05/09/25 08:43
AST 31 U/L (14-36) 05/09/25 08:43
ALT 23 U/L (0-35) 05/09/25 08:43
Alkaline Phosphatase 128 U/L (38-126) H 05/09/25 08:43
Troponin I 0.013 ng/ml 05/09/25 09:16
Chest X-Ray:
Extremely low lung volumes.
Suspected small bilateral pulmonary nodules, at least suspicious for malignancy/metastatic disease. Inflammatory infectious etiology would be less likely.
Data Reviewed
-
Diagnostic Radiology: Report Reviewed by me
Lab Data: Labs Reviewed by me
Old Records: Reviewed
Impression/Plan
-
Acute Hypoxic Respiratory Insufficiency
-Per ED note patient was noted to be 70% on RA at facility this morning, possibly related to underlying obesity hypoventilation syndrome
-Patient now appears more lethargic - Check ABG to evaluate for CO2 retention
-Check noctural pulse ox
SPIKE on CKD IIIB
-Possibly ATN due to Augmentin vs Cardiorenal in setting of Elevated BNP however patient does not appear overtly overloaded
-Consult Nephrology
-Hold torsemide
-Recheck creatinine in AM
Abnormal CXR, raises concern for possible malignancy/metastatic disease
-Check Chest CT
-Doubt underlying pneumonia as patient is afebrile and patient recently completed coarse of antibiotics
-BNP is elevated at 0 compared to 688 during last admissions however patient does not have prior history of heart failure and does not appear acutely overloaded
Diabetes Mellitus, Type II
-Continue Lantus at decreased dose
-Hold Jardiance
-Monitor sugars and continue coverage insulin
Essential Hypertension
-Continue Metoprolol
Hyperlipidemia
-Continue atorvastatin
Hypothyroidism
-Continue levothyroxine
Chronic Anemia
-Hgb stable following transfusion last admission
-Studies last admission consistent with iron deficiency
-Start iron supplement
Chronic Pain Syndrome / Chronic Opioid Dependence
-Continue Fentanyl Patch
-Continue Gabapentin
Cognitive Impairment
-Recent episode of hospital acquired delirium
-Monitor for behavior changes during hospitalization
Depression
-Continue Lexapro
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
-Monitor Daily Weights
-Torsemide on hold due to SPIKE
Obesity due to Excess Calories
Hx Metastatic Melanoma s/p Keytruda
DVT proph: SC Heparin
Code Status: Full Code
[2025-05-09 13:39] LABS: Venous Blood Gas B.E. 2.0 mmol/L (-4 to +4); Venous Blood Gas O2 Sat % 91.2 %
--- NOTE | 2025-05-09 14:40 | W.PN.UPDATE ---
Addendum entered and electronically signed by Rizwan Hardy MD 05/09/25 23:02:
CT scan shows many pulmonary nodules which would not explain hypoxemia. Patient currently saturating 98% on 2L. Wean oxygen. Possibly presentation secondary to obesity hypoventilation. Nephro recommended IV fluids for SPIKE.
Original Note:
Update Note
Progress Note Update
This is an addendum to H&P written by Raine Britton on 05/09/2025. �Patient seen and examined independently with PA.
84-year-old female past medical history of COPD, obesity hypoventilation syndrome, hypertension, diabetes, hypothyroidism, hyperlipidemia, chronic pain/chronic opiate dependence, metastatic melanoma, chronic anemia, venous stasis dermatitis,
cognitive impairment/underlying dementia, CKD 3B, fibromyalgia, obesity, here for hypoxemia of 70%.
She was recently admitted for sepsis secondary to community-acquired pneumonia. �She was treated with IV antibiotics. �She also received blood transfusion for anemia. �No evidence of bleeding.
Vital signs normal.
Labs show leukocytosis 17.9 which appears slightly higher than it was during previous hospitalization for pneumonia. �Hemoglobin stable at 8.8. �Creatinine of 2.5 from 1.4. �Cardiac BNP of 2000 from 688 one week prior.
Became lethargic in ER.
Chest x-ray shows suspected small bilateral pulmonary nodules highly suspicious for malignancy/metastatic disease.
Unclear etiology hypoxemia although currently room air. Not overtly volume overloaded. Unclear if underlying CHF or lung mets. Will check VBG, �CT chest without IV contrast due to SPIKE. SPIKE could be due to cardiorenal vs ATN from antibiotic. Will
hold on diuresis and consult nephro.
--- NOTE | 2025-05-09 16:14 | W.CON.NEPH ---
Consultation
-
Date/Time Consultation Requested: May 09, 2025 at 3 PM
Date/Time Consultation Performed: May 09, 2025 at 4 PM
Requesting Provider: Dr. Hardy
Performing Provider: Dr. Ca
Reason for Consultation: Acute kidney injury
Medical History
-
Chief Complaint: Acute kidney injury
Past Medical History
Diabetes mellitus, chronic kidney disease, hypertension, chronic pain syndrome, chronic anemia, metastatic melanoma
Social History
Tobacco: Non-Smoker
Alcohol: None
Allergies / Home Medications
Allergy/AdvReac Type Severity Reaction Status Date / Time
caraballo pepper Allergy swelling Verified 05/01/25 20:33
mouth &
throat,
bloating,
cramping,
vomiting,
diarr
[place] [employer]ivatives Allergy DIARRHEA, Verified 05/01/25 16:39
swelling
of mouth,
breathing
difficulty
grass pollen Allergy Breathing Verified 05/01/25 20:33
trouble,
sneezing,
runny nose
house dust Allergy congestion Verified 05/01/25 20:33
&
wheezing,
sneezing,
runny nose
latex Allergy per NH Verified 05/01/25 16:39
documentation
levofloxacin (From Levaquin) Allergy Itching Verified 05/01/25 16:39
milk (Milk) Allergy diarrhea Verified 05/01/25 16:39
mold Allergy congestion Verified 05/01/25 20:33
&
wheezing,
sneezing,
runny nose
tomato Allergy Tongue Verified 05/01/25 16:39
Swelling
tree and shrub pollen Allergy MAPLE Verified 05/01/25 20:33
POLLEN-Breathing
trouble,
sneezing,
runny nose
bandages Allergy Rash Uncoded 05/01/25 16:39
�Medication �Instructions �Recorded �Confirmed �Type
atorvastatin 20 mg tablet 20 mg PO HS High cholesterol 09/14/15 05/09/25 History
metoprolol succinate 100 mg 100 mg PO HS Heart 09/14/15 05/09/25 History
tablet,extended release 24 hr disease/condition
allopurinol 100 mg tablet 100 mg PO DAILY Gout 08/22/21 05/09/25 History
gabapentin 300 mg capsule 300 mg PO DAILY Pain 08/22/21 05/09/25 History
melatonin 3 mg tablet 6 mg PO HS Sleep 09/15/21 05/09/25 History
famotidine 20 mg tablet 20 mg PO DAILY Gastrointestinal 02/04/23 05/09/25 History
issue
torsemide 20 mg tablet 40 mg PO DAILY Fluid 02/04/23 05/09/25 History
retention/Swelling
mineral oil-hydrophil petrolat 1 applic topical BID B/L LE 03/06/24 05/09/25 History
topical ointment
nystatin 100,000 unit/gram topical 1 applic topical BID under R breast 03/06/24 05/09/25 History
powder
sodium phosphates 19 gram-7 118 ml [place] DAILYPRN PRN if no bm x 03/06/24 05/09/25 History
gram/118 mL enema (Fleet Enema) 4 days
acetaminophen 500 mg tablet 1,000 mg PO Q8HPRN PRN mild pain 12/15/24 05/09/25 History
(Tylenol Extra Strength)
empagliflozin 10 mg tablet 10 mg PO DAILY Diabetes 12/15/24 05/09/25 History
(Jardiance)
escitalopram oxalate 5 mg tablet 5 mg PO DAILY Depression 12/15/24 05/09/25 History
(Lexapro)
ipratropium 0.5 mg-albuterol 3 mg 3 ml inhalation R Q6HPRN PRN 12/15/24 05/09/25 History
(2.5 mg base)/3 mL nebulization sob/wheezing
soln
ondansetron HCl 4 mg tablet 4 mg PO Q6HPRN PRN nausea/vomiting 12/15/24 05/09/25 History
bisacodyl 10 mg rectal suppository 10 mg [place] Q72H PRN if no BM x 3 days 05/01/25 05/09/25 History
(Dulcolax (bisacodyl))
fentanyl 12 mcg/hr transdermal 1 patch transdermal Q72H Pain 05/01/25 05/09/25 History
patch
levothyroxine 88 mcg tablet 88 mcg PO DAILY Thyroid 05/01/25 05/09/25 History
(Levoxyl)
loperamide 2 mg capsule 2 mg PO [id number] PRN diarrhea 05/01/25 05/09/25 History
magnesium hydroxide 400 mg/5 mL 30 ml PO HSPRN PRN if no BM x 2 05/01/25 05/09/25 History
oral suspension (Milk of Magnesia) days
oxycodone 5 mg tablet 5 mg PO Q4HPRN PRN severe pain 05/01/25 05/09/25 History
potassium chloride 20 mEq 20 meq PO DAILY Electrolyte 05/01/25 05/09/25 History
tablet,extended release(part/cryst) Repletion
prednisone 10 mg tablet 10 mg PO DAILY Anti-Inflammatory 05/01/25 05/09/25 History
amoxicillin 500 mg-potassium 1 tab PO Q8H Infection 05/09/25 05/09/25 History
clavulanate 125 mg tablet
gabapentin 600 mg tablet 600 mg PO HS Pain 05/09/25 05/09/25 History
hydrocortisone acetate 1 % topical 1 applic topical Q6HPRN PRN apply 05/09/25 05/09/25 History
cream to rectum
insulin glargine 100 unit/mL (3 8 unit SC HS Diabetes 05/09/25 05/09/25 History
mL) subcutaneous pen (Lantus
Solostar U-100 Insulin)
lidocaine 4 % topical cream 1 applic topical Q4HPRN PRN apply 05/09/25 05/09/25 History
to right hip
lidocaine 5 % topical ointment 1 applic topical TID apply to labia 05/09/25 05/09/25 History
Review of Systems
-
Lethargic difficult to obtain review systems secondary to clinical status
All other systems: Negative unless noted
Physical Exam
Vital Signs
Vital Signs
Temp Pulse Resp BP Pulse Ox
98.0 F 78 16 142/68 100
05/09/25 15:43 05/09/25 15:43 05/09/25 15:43 05/09/25 15:43 05/09/25 15:43
Lab Results
WBC 17.9 10^3/uL (4.8-10.8) H 05/09/25 08:43
RBC 3.99 10^6/uL (4.20-5.40) L 05/09/25 08:43
Hgb 8.8 g/dL (12.0-16.0) L 05/09/25 08:43
Hct 31.7 % (37.0-47.0) L 05/09/25 08:43
Plt Count 376 10^3/uL (130-400) 05/09/25 08:43
Sodium 140 mmol/L (135-145) 05/09/25 08:43
Potassium 4.0 mmol/L (3.5-5.1) 05/09/25 08:43
Chloride 104 mmol/L (98-107) 05/09/25 08:43
Carbon Dioxide 30 mmol/L (22-30) 05/09/25 08:43
BUN 37 mg/dl (7-17) H 05/09/25 08:43
Creatinine 2.5 mg/dL (0.6-1.0) H 05/09/25 08:43
eGFR 18.73 05/09/25 08:43
Glucose 112 mg/dl (70-99) H 05/09/25 08:43
Calcium 9.3 mg/dl (8.4-10.2) 05/09/25 08:43
Mio-C-Zbpbqdmzmvo Pept 2070 pg/ml 05/09/25 09:16
Albumin 3.0 g/dl (3.5-5.0) L 05/09/25 08:43
Physical Exam
General no acute distress
HEENT no cephalic atraumatic extraocular muscle intact no scleral icterus no JVD neck supple
lungs coarse
heart regular S1-S2 positive
abdomen soft nontender positive bowel sounds
extremities +2 edema and erythema bilateral lower extremity
Neurologically nonfocal alert x 2
Skin no lesions no abrasions no petechiae
Psych flat
Data Reviewed
-
Radiology: Image Personally Visualized and interpreted
CT Scan: Image Personally Visualized and interpreted
Assessment/Plan
-
84 y/o female past medical history of diabetes mellitus, chronic kidney disease, hypertension, chronic pain syndrome, chronic anemia, metastatic melanoma and recent hospitalization for acute hypoxia secondary to bilateral pneumonia who was sent from
a local residential due to hypoxia. Patient was hospitalized from May 01 to May 06 with hypoxia secondary to bilateral pneumonia. That hospitalization was complicated by hospital acquired delirium as as worsening anemia requiring blood
transfusion. Today patient was noted to be hypoxia for staff at the facility with pulse ox 70% on RA, and she was sent to the emergency department for evaluation.
Consult for acute kidney injury creatinine of 2.5 with a baseline of 1.3
Impression.
Acute on chronic kidney disease stage III appears decrease effective arterial blood
Metastatic melanoma
Diabetes
Chronic anemia
Plan
Hold torsemide/relatively normal echo 2022
Hold SGLT2 inhibitor
Start normal saline at 125 cc per
Monitor urine output
AM labs
Discussed with ER team
[2025-05-09] MEDS: NSS 1000 IV (16:50)
[2025-05-09] MEDS: DURAGESIC 12 MCG/HR PATCH 1 PATCH TRANSDERM (16:50)
[2025-05-09] MEDS: HEPARIN 5000 UNITS SC (16:53)
[2025-05-09] MEDS: REMOVE DURAGESIC PATCH REMOVE (16:54)
[2025-05-09] MEDS: LIPITOR 20 MG PO (21:45)
[2025-05-09] MEDS: TOPROL XL 100 MG PO (21:46)
[2025-05-09 22:15] LABS: Glucose - Point of Care 98 mg/dl (70-99)
--- NOTE | 2025-05-09 23:00 | PTCARENOTE ---
Pt's blood sugar tonight was 98; pt did not eat dinner. Hx of diabetes but no accuchecks ordered. Lantus 5 units scheduled for 2200 HS tonight. [facility] notified, accuchecks AC&HS ordered, will hold Lantus if pt does not eat snack. Pt refusing
to eat more than a corner of a joelle cracker; [facility] notified, will hold Lantus 5 units for tonight.
[2025-05-09] MEDS: LANTUS SC (23:13)
[2025-05-09 23:35] LABS: Urine Character Cloudy (Clear)
[2025-05-10 00:10] LABS: Urine Squamous Cell >30 /LPF (Few)
[2025-05-10 00:12] LABS: Urine White Cell 80-90 /HPF (0-5)
[2025-05-10] MEDS: HEPARIN 5000 UNITS SC ×4 (00:12→23:24)
[2025-05-10 03:39] VITALS: BP 161/75
[2025-05-10] MEDS: NSS IV (04:03)
[2025-05-10 05:33] VITALS: BMI 36.2
[2025-05-10] MEDS: SYNTHROID 88 MCG PO (06:08)
[2025-05-10] MEDS: NSS 1000 IV ×2 (06:29→20:08)
[2025-05-10 07:13] LABS: Glucose - Point of Care 94 mg/dl (70-99)
[2025-05-10 07:52] VITALS: BP 159/84
[2025-05-10 07:56] LABS: Hematocrit 30.5 % (37.0-47.0); Hemoglobin 8.5 g/dL (12.0-16.0); Mean Corp Hgb Conc. 27.9 g/dL (33.0-37.0); Mean Corpuscular Volume 79.0 fL (81.0-99.0); Platelet Count 358 10^3/uL (130-400); Red Cell Dist. Width 18.8 % (11.5-14.5)
[2025-05-10 08:17] LABS: Blood Urea Nitrogen 37 mg/dl (7-17); Calcium 8.8 mg/dl (8.4-10.2); Carbon Dioxide 23 mmol/L (22-30); Chloride 107 mmol/L (98-107); Estimated Creatinine Clearance 16 ml/min; Glucose 74 mg/dl (70-99); Potassium 4.2 mmol/L (3.5-5.1); Sodium 140 mmol/L (135-145); eGFR 21.84
[2025-05-10] MEDS: DELTASONE 10 MG PO (09:11)
[2025-05-10] MEDS: PEPCID 20 MG PO (09:12)
[2025-05-10] MEDS: ZYLOPRIM 100 MG PO (09:12)
[2025-05-10] MEDS: FEOSOL 325 MG PO (09:12)
[2025-05-10] MEDS: LEXAPRO 5 MG PO (09:12)
--- NOTE | 2025-05-10 09:41 | W.PN.HOSP.TC ---
Today's Communication/Plan
-
see bold
Assessment / Plan
Assessment / Plan
HPI:84 y/o female past medical history of diabetes mellitus, chronic kidney disease, hypertension, chronic pain syndrome, chronic anemia, metastatic melanoma and recent hospitalization for acute hypoxia secondary to bilateral pneumonia who was sent
from a local snf due to hypoxia. Patient was hospitalized from May 01 to May 06 with hypoxia secondary to bilateral pneumonia. That hospitalization was complicated by hospital acquired delirium as as worsening anemia requiring blood
transfusion. Today patient was noted to be hypoxia for staff at the facility with pulse ox 70% on RA, and she was sent to the emergency department for evaluation. Triage note indicates pulse ox was 93% on RA upon arrival to the emergency
department. Upon my evaluation patient is lethargic only answering a few questions with one word answers.
Acute Hypoxic Respiratory Insufficiency
-Per ED note patient was noted to be 70% on RA at facility this morning, possibly related to underlying obesity hypoventilation syndrome
-Was requiring 2 L of oxygen in the ER, now on room air
-Discharged on 05/06/2025 after treatment for pneumonia, follow-up on noctural pulse ox
SPIKE on CKD IIIB
-Possibly ATN due to Augmentin vs Cardiorenal in setting of Elevated BNP however patient does not appear overtly overloaded
-Creatinine 2.2 today, down from 2.5 upon admission, baseline 1.4
-Appreciate nephrology input, continue IV fluids
-Hold torsemide, trend creatinine
Pulmonary nodules concerning for metastatic disease
History of metastatic Melanoma s/p Keytruda
-Recommend outpatient follow-up with her business applications manager
Cognitive Impairment
-Recent episode of hospital acquired delirium
-Daughter reports patient is more confused than usual, will send repeat urine analysis as the first one was started
-B12, TSH normal
-Monitor for behavior changes during hospitalization
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
-Torsemide on hold due to SPIKE, start Keflex to cover for possible starting cellulitis
-Monitor Daily Weights
Diabetes Mellitus, Type II
-Continue Lantus at decreased dose
-Hold Jardiance
-Monitor sugars and continue coverage insulin
Essential Hypertension
-Continue Metoprolol
Hyperlipidemia
-Continue atorvastatin
Hypothyroidism
-Continue levothyroxine
Chronic Anemia
-Hgb stable following transfusion last admission
-Studies last admission consistent with iron deficiency
-Started iron supplement
Chronic Pain Syndrome / Chronic Opioid Dependence
-Continue Fentanyl Patch
-Continue Gabapentin
Depression
-Continue Lexapro
Obesity due to Excess Calories
DVT proph: SC Heparin
Code Status: Full Code
Updated daughter on phone 05/10
Total time spent to see the patient on the floor, examine the patient, review data and lab results, discuss treatment plan with patient, nursing staff around 50 minutes.
Physical Exam
General: Obese, no acute distress
HEENT: Normocephalic, Atraumatic, EOMI, MMM
Respiratory: Clear to Auscultation bilaterally
Cardiac: Normal S1/S2, Regular Rate and Rhythm
GI: Soft, Nontender, Nondistended, Normal Bowel Sounds
Extremities: No Clubbing, Cyanosis
Mild bilateral lower extremity edema noted
Neuro: Slow to respond, mildly confused
Psych: Calm, Cooperative
Derm:
Erythema bilateral lower extremities
Anticipated Discharge: 24 - 48 hours
Subjective/Interval History
-
Date of Service: May 10, 2025
Patient's lethargy has improved. She is still slow to respond, but is awake, and able to answer questions. She complains of diffuse pain. No fever, no vomiting.
Objective Data
-
Labs:
Laboratory Results
05/10/25
06:20
WBC 15.1 H
Hgb 8.5 L
Hct 30.5 L
Plt Count 358
Sodium 140
Potassium 4.2
Chloride 107
Carbon Dioxide 23
BUN 37 H
Creatinine 2.2 H
Glucose 74
Calcium 8.8
Vital Signs:
Vital Signs
Temp Pulse Resp BP Pulse Ox
98.4 F 88 17 159/84 94
05/10/25 07:52 05/10/25 07:52 05/10/25 07:52 05/10/25 07:52 05/10/25 07:52
I&O
05/09/25 05/10/25 05/11/25
06:59 06:59 06:59
Intake Total 800 / 800
Balance 800 / 800
[2025-05-10 11:13] LABS: Glucose - Point of Care 102 mg/dl (70-99)
[2025-05-10 11:23] VITALS: BP 169/93
--- NOTE | 2025-05-10 11:55 | CM ---
athlete manager reviewed patient's chart and met with patient and patient is readmitted to [facility], patient resides at [facility] LTC unit. Patient requires assist with ADL's and ambulates with a walker, patient with more
confusion, was on Haldol for agitation last admissions along with restraints. athlete manager reached out to patient's daughter who confirmed plan to return to [facility] intermediate care at [facility].
PCP: Dr. Kyler Mohan
Pharmacy: [facility]
Plan; Patient to return to [facility]
Report [phone]
[2025-05-10] MEDS: KEFLEX 500 MG PO ×2 (13:42→19:57)
[2025-05-10 15:17] VITALS: BP 170/91
--- NOTE | 2025-05-10 16:11 | W.PN.NEPH.PH ---
Today's Communication / Plan
-
Continue normal saline
Assessment/Plan
-
84 y/o female past medical history of diabetes mellitus, chronic kidney disease, hypertension, chronic pain syndrome, chronic anemia, metastatic melanoma and recent hospitalization for acute hypoxia secondary to bilateral pneumonia who was sent from
a local correction due to hypoxia. Patient was hospitalized from May 01 to May 06 with hypoxia secondary to bilateral pneumonia. That hospitalization was complicated by hospital acquired delirium as as worsening anemia requiring blood
transfusion. Today patient was noted to be hypoxia for staff at the facility with pulse ox 70% on RA, and she was sent to the emergency department for evaluation.
Consult for acute kidney injury creatinine of 2.5 with a baseline of 1.3
Impression.
Acute on chronic kidney disease stage III appears decrease effective arterial blood
Metastatic melanoma
Diabetes
Chronic anemia
Pneumonia?
Plan
Hold torsemide/relatively normal echo 2022
Hold SGLT2 inhibitor
Continue normal saline
Antibiotic
Renal function improving 2.2
A.m. labs
-
-
Date of Service: May 10, 2025
CC / HPI / ROS
-
Chief Complaint:
Hypoxia
History of Present Illness:
Metastatic cancer with hypoxia presents with acute on chronic kidney disease
Review of Systems:
No chest pain or shortness of breath patient is set crying in the room nonspecific reasons
Labs
-
Labs:
WBC 15.1 10^3/uL (4.8-10.8) H 05/10/25 06:20
RBC 3.86 10^6/uL (4.20-5.40) L 05/10/25 06:20
Hgb 8.5 g/dL (12.0-16.0) L 05/10/25 06:20
Hct 30.5 % (37.0-47.0) L 05/10/25 06:20
Plt Count 358 10^3/uL (130-400) 05/10/25 06:20
Sodium 140 mmol/L (135-145) 05/10/25 06:20
Potassium 4.2 mmol/L (3.5-5.1) 05/10/25 06:20
Chloride 107 mmol/L (98-107) 05/10/25 06:20
Carbon Dioxide 23 mmol/L (22-30) 05/10/25 06:20
BUN 37 mg/dl (7-17) H 05/10/25 06:20
Creatinine 2.2 mg/dL (0.6-1.0) H 05/10/25 06:20
eGFR 21.84 05/10/25 06:20
Glucose 74 mg/dl (70-99) 05/10/25 06:20
Calcium 8.8 mg/dl (8.4-10.2) 05/10/25 06:20
Tan-W-Sqsmfqbujqd Pept 2070 pg/ml 05/09/25 09:16
Albumin 3.0 g/dl (3.5-5.0) L 05/09/25 08:43
Physical Exam
-
Vital Signs:
Vital Signs
Temp Pulse Resp BP Pulse Ox
98.8 F 90 18 170/91 93
05/10/25 15:17 05/10/25 15:17 05/10/25 15:17 05/10/25 15:17 05/10/25 15:17
Respiratory:: Bilateral: Coarse
Lung Excursion:: Normal
Abdomen:: Soft
Bowel Sounds:: Normal
Extremity Edema:: None: Bilateral:
[2025-05-10 16:59] LABS: Urine Character Clear (Clear)
[2025-05-10 17:33] LABS: Urine Squamous Cell >30 /LPF (Few); Urine Urothelial Cell >30 /LPF (FEW)
[2025-05-10 17:34] LABS: Urine Red Blood Cell 21-25 /HPF (0-2); Urine White Cell 21-25 /HPF (0-5)
[2025-05-10] MEDS: HALDOL 2 MG IV (17:53)
[2025-05-10] MEDS: VISBIOME 2 CAP PO (17:57)
[2025-05-10] MEDS: LIPITOR 20 MG PO (19:57)
[2025-05-10 21:31] LABS: Glucose - Point of Care 106 mg/dl (70-99)
[2025-05-10] MEDS: LANTUS 0.05 UNITS SC (21:40)
[2025-05-10] MEDS: TOPROL XL 100 MG PO (22:31)
[2025-05-10 23:00] VITALS: BP 170/95
[2025-05-11] MEDS: SYNTHROID 88 MCG PO (04:07)
[2025-05-11] MEDS: KEFLEX 500 MG PO ×2 (04:07→12:17)
[2025-05-11] MEDS: NSS 1000 IV ×3 (04:18→22:05)
[2025-05-11 06:00] VITALS: BMI 36.8
[2025-05-11 07:08] LABS: Glucose - Point of Care 101 mg/dl (70-99)
[2025-05-11 07:55] VITALS: BP 176/92
[2025-05-11] MEDS: DELTASONE PO ×2 (08:04→10:19)
[2025-05-11] MEDS: FEOSOL PO ×2 (08:04→10:20)
[2025-05-11] MEDS: ZYLOPRIM PO ×2 (08:04→10:20)
[2025-05-11] MEDS: LEXAPRO PO ×2 (08:04→10:20)
[2025-05-11] MEDS: VISBIOME PO ×2 (08:05→10:20)
[2025-05-11] MEDS: HEPARIN 5000 UNITS SC ×3 (08:06→23:27)
--- NOTE | 2025-05-11 09:10 | W.PN.HOSP.TC ---
Today's Communication/Plan
-
see bold
Assessment / Plan
Assessment / Plan
HPI:84 y/o female past medical history of diabetes mellitus, chronic kidney disease, hypertension, chronic pain syndrome, chronic anemia, metastatic melanoma and recent hospitalization for acute hypoxia secondary to bilateral pneumonia who was sent
from a local senior care due to hypoxia. Patient was hospitalized from May 01 to May 06 with hypoxia secondary to bilateral pneumonia. That hospitalization was complicated by hospital acquired delirium as as worsening anemia requiring blood
transfusion. Today patient was noted to be hypoxia for staff at the facility with pulse ox 70% on RA, and she was sent to the emergency department for evaluation. Triage note indicates pulse ox was 93% on RA upon arrival to the emergency
department. Upon my evaluation patient is lethargic only answering a few questions with one word answers.
Acute Hypoxic Respiratory Insufficiency
-Per ED note patient was noted to be 70% on RA at facility this morning, possibly related to underlying obesity hypoventilation syndrome
-Was requiring 2 L of oxygen in the ER, now on room air
-Discharged on 05/06/2025 after treatment for pneumonia, follow-up on noctural pulse ox
-Monitor
SPIKE on CKD IIIB
-Possibly ATN due to Augmentin vs Cardiorenal in setting of Elevated BNP however patient does not appear overtly overloaded
-Creatinine 2.5 today, was 2.2, was 2.5 upon admission, baseline 1.4
-Appreciate nephrology input, continue IV fluids
-Hold torsemide, trend creatinine
Pulmonary nodules concerning for metastatic disease
History of metastatic Melanoma s/p Keytruda
-Recommend outpatient follow-up with her human factors ergonomist
Cognitive Impairment with probable dementia
owning in the hospital
-Recent episode of hospital acquired delirium
-Daughter reports patient is more confused than usual, will send repeat urine analysis as the first one was dirty
-Start IV Rocephin after UA sent
-B12, TSH normal
-Status post IV Haldol 05/10
-Start Seroquel in the evening
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
-Torsemide on hold due to SPIKE
-Monitor Daily Weights
Diabetes Mellitus, Type II
-Continue Lantus at decreased dose
-Hold Jardiance
-Monitor sugars and continue coverage insulin
Essential Hypertension
-Continue Metoprolol
Hyperlipidemia
-Continue atorvastatin
Hypothyroidism
-Continue levothyroxine
Chronic Anemia
-Hgb stable following transfusion last admission
-Studies last admission consistent with iron deficiency
-Started iron supplement
Chronic Pain Syndrome / Chronic Opioid Dependence
-Continue Fentanyl Patch
-Continue Gabapentin
Depression
-Continue Lexapro
Obesity due to Excess Calories
DVT proph: SC Heparin
Code Status: Full Code
Updated daughter on phone 05/10
Total time spent to see the patient on the floor, examine the patient, review data and lab results, discuss treatment plan with patient, nursing staff around 51 minutes.
Physical Exam
General: Obese, no acute distress
HEENT: Normocephalic, Atraumatic, EOMI, MMM
Respiratory: Clear to Auscultation bilaterally
Cardiac: Normal S1/S2, Regular Rate and Rhythm
GI: Soft, Nontender, Nondistended, Normal Bowel Sounds
Extremities: No Clubbing, Cyanosis
Mild bilateral lower extremity edema noted
Neuro: Slow to respond, mildly confused
Psych: Calm, Cooperative
Derm: Erythema bilateral lower extremities
Anticipated Discharge: > 48 hours
Subjective/Interval History
-
Date of Service: May 11, 2025
Patient more lethargic today. She would not take her oral medications per nursing staff. She was confused yesterday evening and agitated. She received IV Haldol. No fever, no vomiting.
Objective Data
-
Vital Signs:
Vital Signs
Temp Pulse Resp BP Pulse Ox
98.3 F 89 20 176/92 93
05/11/25 07:55 05/11/25 07:55 05/11/25 07:55 05/11/25 07:55 05/11/25 07:55
I&O
05/10/25 05/11/25 05/12/25
06:59 06:59 06:59
Intake Total 800 / 800 1500 / 1500
Balance 800 / 800 1500 / 1500
[2025-05-11 09:52] LABS: Hematocrit 30.6 % (37.0-47.0); Hemoglobin 8.9 g/dL (12.0-16.0); Mean Corp Hgb Conc. 29.1 g/dL (33.0-37.0); Mean Corpuscular Volume 77.9 fL (81.0-99.0); Platelet Count 376 10^3/uL (130-400); Red Cell Dist. Width 19.0 % (11.5-14.5)
[2025-05-11 10:15] LABS: Blood Urea Nitrogen 34 mg/dl (7-17); Calcium 8.9 mg/dl (8.4-10.2); Carbon Dioxide 19 mmol/L (22-30); Chloride 112 mmol/L (98-107); Estimated Creatinine Clearance 15 ml/min; Glucose 87 mg/dl (70-99); Potassium 4.1 mmol/L (3.5-5.1); Sodium 144 mmol/L (135-145); eGFR 19.67
[2025-05-11 11:05] LABS: Glucose - Point of Care 100 mg/dl (70-99)
[2025-05-11 14:08] LABS: Urine Character Clear (Clear)
[2025-05-11 14:23] LABS: Urine Squamous Cell >30 /LPF (Few)
[2025-05-11 14:25] LABS: Urine Red Blood Cell 21-25 /HPF (0-2); Urine White Cell 30-40 /HPF (0-5)
[2025-05-11] MEDS: STERILE WATER FOR INJECTION 10 ML IV (14:56)
--- NOTE | 2025-05-11 14:56 | W.PN.NEPH.PH ---
Today's Communication / Plan
-
follow BMP
Assessment/Plan
-
84 y/o female past medical history of diabetes mellitus, chronic kidney disease, hypertension, chronic pain syndrome, chronic anemia, metastatic melanoma and recent hospitalization for acute hypoxia secondary to bilateral pneumonia who was [facility]. Patient was hospitalized from May 01 to May 06 with hypoxia secondary to bilateral pneumonia. That hospitalization was complicated by hospital acquired delirium as as worsening anemia requiring blood
transfusion. Today patient was noted to be hypoxia for staff at the facility with pulse ox 70% on RA, and she was sent to the emergency department for evaluation.
Consult for acute kidney injury creatinine of 2.5 with a baseline of 1.3
Impression.
Acute on chronic kidney disease stage III appears decrease effective arterial blood
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
Diabetes
Chronic anemia
Pneumonia?
Plan
Hold torsemide
Hold SGLT2 inhibitor
Continue normal saline, reduce rate
Antibiotics per primary team
Abdominal US
-
-
Date of Service: May 11, 2025
CC / HPI / ROS
-
Chief Complaint:
Hypoxia
History of Present Illness:
Metastatic cancer with hypoxia presents with acute on chronic kidney disease
Hgb stable 8.9
SPIKE/Cr higher at 2.4
mild metabolic acidosis 19
BP high
Review of Systems:
No chest pain or shortness of breath
Labs
-
Labs:
WBC 16.7 10^3/uL (4.8-10.8) H 05/11/25 09:23
RBC 3.93 10^6/uL (4.20-5.40) L 05/11/25 09:23
Hgb 8.9 g/dL (12.0-16.0) L 05/11/25 09:23
Hct 30.6 % (37.0-47.0) L 05/11/25 09:23
Plt Count 376 10^3/uL (130-400) 05/11/25 09:23
Sodium 144 mmol/L (135-145) 05/11/25 09:23
Potassium 4.1 mmol/L (3.5-5.1) 05/11/25 09:23
Chloride 112 mmol/L (98-107) H 05/11/25 09:23
Carbon Dioxide 19 mmol/L (22-30) L 05/11/25 09:23
BUN 34 mg/dl (7-17) H 05/11/25 09:23
Creatinine 2.4 mg/dL (0.6-1.0) H 05/11/25 09:23
eGFR 19.67 05/11/25 09:23
Glucose 87 mg/dl (70-99) 05/11/25 09:23
Calcium 8.9 mg/dl (8.4-10.2) 05/11/25 09:23
Pbx-O-Ixizymtyxtd Pept 2070 pg/ml 05/09/25 09:16
Albumin 3.0 g/dl (3.5-5.0) L 05/09/25 08:43
Physical Exam
-
Vital Signs:
Vital Signs
Temp Pulse Resp BP Pulse Ox
98.3 F 89 20 176/92 93
05/11/25 07:55 05/11/25 07:55 05/11/25 07:55 05/11/25 07:55 05/11/25 07:55
Cardiovascular:: Regular rate and rhythm
Respiratory:: Bilateral: Coarse
Lung Excursion:: Normal
Abdomen:: Soft and Tender (RUQ)
Bowel Sounds:: Normal
Extremity Edema:: +1: Bilateral:
[2025-05-11] MEDS: ROCEPHIN 1000 MG IV (14:57)
[2025-05-11] MEDS: APRESOLINE 10 MG IV (15:21)
[2025-05-11 15:33] VITALS: BP 140/80
[2025-05-11 16:05] LABS: Glucose - Point of Care 91 mg/dl (70-99)
[2025-05-11] MEDS: SEROQUEL 25 MG PO (18:17)
[2025-05-11] MEDS: LANTUS 0.05 UNITS SC (22:07)
[2025-05-11 22:08] LABS: Glucose - Point of Care 96 mg/dl (70-99)
[2025-05-11] MEDS: LIPITOR 20 MG PO (22:12)
[2025-05-11] MEDS: TOPROL XL 100 MG PO (22:12)
[2025-05-11] MEDS: SEROQUEL 50 MG PO (22:12)
[2025-05-11 23:04] VITALS: BP 152/75
[2025-05-12] MEDS: SYNTHROID 88 MCG PO (05:33)
[2025-05-12 05:44] VITALS: BMI 37.1
[2025-05-12] MEDS: NSS 1000 IV (06:12)
[2025-05-12 07:09] VITALS: BP 149/80
[2025-05-12 07:24] LABS: Glucose - Point of Care 79 mg/dl (70-99)
[2025-05-12 08:45] LABS: Blood Urea Nitrogen 39 mg/dl (7-17); Calcium 8.8 mg/dl (8.4-10.2); Carbon Dioxide 22 mmol/L (22-30); Chloride 117 mmol/L (98-107); Estimated Creatinine Clearance 13 ml/min; Glucose 78 mg/dl (70-99); Hematocrit 29.0 % (37.0-47.0); Hemoglobin 8.2 g/dL (12.0-16.0); Mean Corp Hgb Conc. 28.3 g/dL (33.0-37.0); Mean Corpuscular Volume 79.5 fL (81.0-99.0); Platelet Count 344 10^3/uL (130-400); Potassium 4.4 mmol/L (3.5-5.1); Red Cell Dist. Width 19.6 % (11.5-14.5); Sodium 144 mmol/L (135-145); eGFR 16.35
--- NOTE | 2025-05-12 09:30 | W.PN.HOSP.TC ---
Addendum entered and electronically signed by Guero Galaviz MD 05/12/25 15:25:
Discussed with patient's daughter, Kely, regarding patient's poor prognosis.
Patient's daughter agrees to DNR status, and agrees to hospice referral.
Original Note:
Today's Communication/Plan
-
see bold
Assessment / Plan
Assessment / Plan
HPI:84 y/o female past medical history of diabetes mellitus, chronic kidney disease, hypertension, chronic pain syndrome, chronic anemia, metastatic melanoma and recent hospitalization for acute hypoxia secondary to bilateral pneumonia who was sent
from a local long-term due to hypoxia. Patient was hospitalized from May 01 to May 06 with hypoxia secondary to bilateral pneumonia. That hospitalization was complicated by hospital acquired delirium as as worsening anemia requiring blood
transfusion. Today patient was noted to be hypoxia for staff at the facility with pulse ox 70% on RA, and she was sent to the emergency department for evaluation. Triage note indicates pulse ox was 93% on RA upon arrival to the emergency
department. Upon my evaluation patient is lethargic only answering a few questions with one word answers.
Acute Hypoxic Respiratory Insufficiency
-Per ED note patient was noted to be 70% on RA at facility this morning, possibly related to underlying obesity hypoventilation syndrome
-Was requiring 2 L of oxygen in the ER, now on room air
-Discharged on 05/06/2025 after treatment for pneumonia, follow-up on noctural pulse ox
-Monitor
SPIKE on CKD IIIB
-Possibly ATN due to Augmentin vs Cardiorenal in setting of Elevated BNP however patient does not appear overtly overloaded
-Creatinine 2.8 today, was 2.2, was 2.5 upon admission, baseline 1.4
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
-She is not a candidate for kidney biopsy, follow-up complement studies
-Hold torsemide, trend creatinine
Pulmonary nodules concerning for metastatic disease
History of metastatic Melanoma s/p Keytruda
-Recommend outpatient follow-up with her knockup worker and oncologist
Cognitive Impairment with probable dementia
ing in the hospital
-Recent episode of hospital acquired delirium
-Daughter reports patient is more confused than usual, suspect this is due to her worsening dementia
-B12, TSH normal
-Status post IV Haldol 05/10
-Started Seroquel in the evening 05/11
-Continue empiric Rocephin, follow-up on urine culture
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
-Torsemide on hold due to SPIKE
-Monitor Daily Weights
Diabetes Mellitus, Type II
-Hold Lantus
-Hold Jardiance
-Monitor sugars and continue coverage insulin
Essential Hypertension
-Continue Metoprolol
Hyperlipidemia
-Continue atorvastatin
Hypothyroidism
-Continue levothyroxine
Chronic Anemia
-Hgb stable following transfusion last admission
-Studies last admission consistent with iron deficiency
-Started iron supplement
Chronic Pain Syndrome / Chronic Opioid Dependence
-Continue Fentanyl Patch
-Continue Gabapentin
Depression
-Continue Lexapro
Obesity due to Excess Calories
DVT proph: SC Heparin
Code Status: Full Code
Updated daughter on phone 05/10
Patient's prognosis is poor, called her twice on 05/12 to discuss goals of care, she did not pharmacy picking tech
Total time spent to see the patient on the floor, examine the patient, review data and lab results, discuss treatment plan with patient, nursing staff around 52 minutes.
Physical Exam
General: Obese, no acute distress
HEENT: Normocephalic, Atraumatic, EOMI, MMM
Respiratory: Clear to Auscultation bilaterally
Cardiac: Normal S1/S2, Regular Rate and Rhythm
GI: Soft, Nontender, Nondistended, Normal Bowel Sounds
Extremities: No Clubbing, Cyanosis
Mild bilateral lower extremity edema noted
Neuro: Somnolent, slow to respond, mildly confused
Psych: Calm, Cooperative
Derm: Erythema bilateral lower extremities
Anticipated Discharge: > 48 hours
Subjective/Interval History
-
Date of Service: May 12, 2025
Patient is moaning in pain. She has not taken her meds today. No fever, no vomiting.
Objective Data
-
Labs:
Laboratory Results
05/12/25
07:34
WBC 12.2 H
Hgb 8.2 L
Hct 29.0 L
Plt Count 344
Sodium 144
Potassium 4.4
Chloride 117 H
Carbon Dioxide 22
BUN 39 H
Creatinine 2.8 H
Glucose 78
Calcium 8.8
Vital Signs:
Vital Signs
Temp Pulse Resp BP Pulse Ox
98.8 F 89 18 149/80 92
05/12/25 07:09 05/12/25 07:09 05/12/25 07:09 05/12/25 07:09 05/12/25 07:09
I&O
05/11/25 05/12/25 05/13/25
06:59 06:59 06:59
Intake Total 1500 / 1500 1200 / 1200
Balance 1500 / 1500 1200 / 1200
[2025-05-12] MEDS: DELTASONE PO (10:07)
[2025-05-12] MEDS: ZYLOPRIM PO (10:08)
[2025-05-12] MEDS: VISBIOME PO (10:08)
[2025-05-12] MEDS: LEXAPRO PO (10:08)
[2025-05-12] MEDS: FEOSOL PO (10:08)
[2025-05-12] MEDS: HEPARIN SC (10:08)
[2025-05-12 11:37] LABS: Glucose - Point of Care 73 mg/dl (70-99)
[2025-05-12] MEDS: D5/0.9% SODIUM CHLORIDE 1000 IV (12:18)
--- NOTE | 2025-05-12 12:38 | W.PN.NEPH.PH ---
Today's Communication / Plan
-
CT
Assessment/Plan
-
84 y/o female past medical history of diabetes mellitus, chronic kidney disease, hypertension, chronic pain syndrome, chronic anemia, metastatic melanoma and recent hospitalization for acute hypoxia secondary to bilateral pneumonia who was sent from
a local [facility] due to hypoxia. Patient was hospitalized from May 01 to May 06 with hypoxia secondary to bilateral pneumonia. That hospitalization was complicated by hospital acquired delirium as as worsening anemia requiring blood
transfusion. Today patient was noted to be hypoxia for staff at the facility with pulse ox 70% on RA, and she was sent to the emergency department for evaluation.
Consult for acute kidney injury creatinine of 2.5 with a baseline of 1.3
Impression.
Acute on chronic kidney disease stage III
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
Diabetes
Chronic anemia
Pneumonia?
Plan
Hold torsemide
Hold SGLT2 inhibitor
Continue normal saline
Antibiotics per primary team
CT Abd/pelvis, no contrast
check serologies
poor prognosis. I would likely not give immunosuppressive therapy if a GN was found given poor performance status
I also would not offer dialysis for the same reasons as it would not alter overall prognosis and only worsen QoL
-
-
Date of Service: May 12, 2025
CC / HPI / ROS
-
Chief Complaint:
Hypoxia
History of Present Illness:
Metastatic cancer with hypoxia presents with acute on chronic kidney disease
Hgb stable 8.2
SPIKE/Cr higher at 2.8
mild metabolic acidosis 22
BP high stable
Review of Systems:
unable to converse
no fever
nonoliguric
Labs
-
Labs:
WBC 12.2 10^3/uL (4.8-10.8) H 05/12/25 07:34
RBC 3.65 10^6/uL (4.20-5.40) L 05/12/25 07:34
Hgb 8.2 g/dL (12.0-16.0) L 05/12/25 07:34
Hct 29.0 % (37.0-47.0) L 05/12/25 07:34
Plt Count 344 10^3/uL (130-400) 05/12/25 07:34
Sodium 144 mmol/L (135-145) 05/12/25 07:34
Potassium 4.4 mmol/L (3.5-5.1) 05/12/25 07:34
Chloride 117 mmol/L (98-107) H 05/12/25 07:34
Carbon Dioxide 22 mmol/L (22-30) 05/12/25 07:34
BUN 39 mg/dl (7-17) H 05/12/25 07:34
Creatinine 2.8 mg/dL (0.6-1.0) H 05/12/25 07:34
eGFR 16.35 05/12/25 07:34
Glucose 78 mg/dl (70-99) 05/12/25 07:34
Calcium 8.8 mg/dl (8.4-10.2) 05/12/25 07:34
Wot-R-Dyphjyoyjvv Pept 2070 pg/ml 05/09/25 09:16
Albumin 3.0 g/dl (3.5-5.0) L 05/09/25 08:43
Physical Exam
-
Vital Signs:
Vital Signs
Temp Pulse Resp BP Pulse Ox
98.8 F 89 18 149/80 92
05/12/25 07:09 05/12/25 07:09 05/12/25 07:09 05/12/25 07:09 05/12/25 07:09
Cardiovascular:: Regular rate and rhythm
Respiratory:: Bilateral: Coarse
Lung Excursion:: Normal
Abdomen:: Soft and Tender (RUQ)
Bowel Sounds:: Normal
Extremity Edema:: None: Bilateral:
Other Findings::
petechial/patchy macular nonblanching rash on torso and neck
[2025-05-12] MEDS: ROCEPHIN 1000 MG IV (15:10)
[2025-05-12] MEDS: DURAGESIC 12 MCG/HR PATCH 1 PATCH TRANSDERM (15:10)
[2025-05-12] MEDS: STERILE WATER FOR INJECTION 10 ML IV (15:10)
[2025-05-12] MEDS: HEPARIN 5000 UNITS SC ×2 (15:10→23:47)
--- NOTE | 2025-05-12 15:10 | HOSPNOTE ---
Addendum entered by Rand Cook RN 05/12/25 15:33:
Spoke to daughter Irina who spoke to her sister Deborah after this RN spoke to her. Irina is also in agreement with hospice services at [facility]. Updated CM and Attending. Reviewed when [facility] can accept patient back (likely Wednesday) hospice will
be able to meet patient and sign her on at [facility]. Will send consents electronically to Irina for signature as well at time of admission. Emotional support provided. Asked CM to notify hospice once [facility] states when they are able to accept
patient back on hospice services with Hospice.
Original Note:
Hospice referral received. Per attending, asked to speak to daughter Deborah. Called Deborah and reviewed hospice services. Deborah feels this is the right choice for patient. She asked that I call her sister Irina as she is her POA. I called
Irina and left VM as it went straight to voicemail and also sent a text. Will await Irina return call. CM and Attending updated. More information to follow.
--- NOTE | 2025-05-12 15:15 | CM ---
media relations manager received a consult for hospice, options reviewed with patient's daughter, Deborah and she is saying that family would like patient to return to [facility], and they are not sure about hospice agencies but are agreeable
to [facility]. referral sent to [facility], message left with admissions at [facility].
Plan; Patient to return to [facility] possibly with hospice.
Report [phone]
[2025-05-12 15:20] VITALS: BP 103/62
[2025-05-12] MEDS: REMOVE DURAGESIC PATCH 1 PATCH REMOVE (15:35)
[2025-05-12 16:37] LABS: Glucose - Point of Care 98 mg/dl (70-99)
[2025-05-12] MEDS: SEROQUEL 25 MG PO (18:13)
[2025-05-12 21:11] LABS: Glucose - Point of Care 116 mg/dl (70-99)
[2025-05-12] MEDS: TOPROL XL 100 MG PO (22:34)
[2025-05-12] MEDS: SEROQUEL 50 MG PO (22:34)
[2025-05-12] MEDS: LIPITOR 20 MG PO (22:34)
[2025-05-12 22:35] VITALS: BP 179/95
[2025-05-13] MEDS: D5/0.9% SODIUM CHLORIDE 1000 IV (03:43)
[2025-05-13] MEDS: SYNTHROID PO (05:40)
[2025-05-13 06:00] VITALS: BMI 38.0
[2025-05-13 07:00] VITALS: BP 157/87
[2025-05-13 07:21] LABS: Blood Urea Nitrogen 43 mg/dl (7-17); Calcium 8.7 mg/dl (8.4-10.2); Carbon Dioxide 23 mmol/L (22-30); Chloride 119 mmol/L (98-107); Estimated Creatinine Clearance 10 ml/min; Glucose 126 mg/dl (70-99); Potassium 4.3 mmol/L (3.5-5.1); Sodium 147 mmol/L (135-145); eGFR 11.70
[2025-05-13 08:11] LABS: Glucose - Point of Care 150 mg/dl (70-99)
[2025-05-13 08:32] LABS: Hematocrit 30.0 % (37.0-47.0); Hemoglobin 8.3 g/dL (12.0-16.0); Mean Corp Hgb Conc. 27.7 g/dL (33.0-37.0); Mean Corpuscular Volume 80.6 fL (81.0-99.0); Red Cell Dist. Width 20.1 % (11.5-14.5)
[2025-05-13 08:33] LABS: Platelet Count 377 10^3/uL (130-400)
--- NOTE | 2025-05-13 08:46 | W.PN.HOSP.TC ---
Today's Communication/Plan
-
Discharge to [facility] on hospice tomorrow
Assessment / Plan
Assessment / Plan
HPI:84 y/o female past medical history of diabetes mellitus, chronic kidney disease, hypertension, chronic pain syndrome, chronic anemia, metastatic melanoma and recent hospitalization for acute hypoxia secondary to bilateral pneumonia who [facility]. Patient was hospitalized from May 01 to May 06 with hypoxia secondary to bilateral pneumonia. That hospitalization was complicated by hospital acquired delirium as as worsening anemia requiring blood
transfusion. Today patient was noted to be hypoxia for staff at the facility with pulse ox 70% on RA, and she was sent to the emergency department for evaluation. Triage note indicates pulse ox was 93% on RA upon arrival to the emergency
department. Upon my evaluation patient is lethargic only answering a few questions with one word answers.
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
Pulmonary nodules concerning for metastatic disease
History of metastatic Melanoma s/p Keytruda
- Discussed with patient's 2 daughters regarding her poor quality of life
- Daughters agreed to hospice, plan for discharge to [facility] on hospice tomorrow
Acute Hypoxic Respiratory Insufficiency
-Per ED note patient was noted to be 70% on RA at facility this morning, possibly related to underlying obesity hypoventilation syndrome
-Was requiring 2 L of oxygen in the ER, now on room air
-Discharged on 05/06/2025 after treatment for pneumonia, follow-up on noctural pulse ox
SPIKE on CKD IIIB
-Possibly ATN due to Augmentin vs Cardiorenal in setting of Elevated BNP however patient does not appear overtly overloaded
-Creatinine 2.8 today, was 2.2, was 2.5 upon admission, baseline 1.4
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
-She is not a candidate for kidney biopsy, follow-up complement studies
-Hold torsemide, trend creatinine
Cognitive Impairment with probable dementia
Sundowning in the hospital
-Recent episode of hospital acquired delirium
-Daughter reports patient is more confused than usual, suspect this is due to her worsening dementia
-B12, TSH normal
-Status post IV Haldol 05/10
-Started Seroquel in the evening 05/11
-Urine cultures x 2 negative, discontinue Rocephin
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
-Torsemide on hold due to SPIKE
-Monitor Daily Weights
Diabetes Mellitus, Type II
-Hold Lantus
-Hold Jardiance
-Monitor sugars and continue coverage insulin
Essential Hypertension
-Continue Metoprolol
Hyperlipidemia
-Continue atorvastatin
Hypothyroidism
-Continue levothyroxine
Chronic Anemia
-Hgb stable following transfusion last admission
-Studies last admission consistent with iron deficiency
-Started iron supplement
Chronic Pain Syndrome / Chronic Opioid Dependence
-Continue Fentanyl Patch
-Continue Gabapentin
Depression
-Continue Lexapro
Obesity due to Excess Calories
DVT proph: SC Heparin
Code Status: Full Code
Updated daughter on phone 05/12
Total time spent to see the patient on the floor, examine the patient, review data and lab results, discuss treatment plan with patient, nursing staff around 50 minutes.
Physical Exam
General: Obese, no acute distress
HEENT: Normocephalic, Atraumatic, EOMI, MMM
Respiratory: Clear to Auscultation bilaterally
Cardiac: Normal S1/S2, Regular Rate and Rhythm
GI: Soft, Nontender, Nondistended, Normal Bowel Sounds
Extremities: No Clubbing, Cyanosis
Mild bilateral lower extremity edema noted
Neuro: Somnolent, slow to respond, mildly confused
Psych: Calm, Cooperative
Derm: Erythema bilateral lower extremities
Anticipated Discharge: Within 24 hours
Subjective/Interval History
-
Date of Service: May 13, 2025
Patient is moaning, reports feeling 'miserable'. No fever, no vomiting.
Objective Data
-
Labs:
Laboratory Results
05/13/25
06:53
WBC 12.7 H
Hgb 8.3 L
Hct 30.0 L
Plt Count 377
Sodium 147 H
Potassium 4.3
Chloride 119 H
Carbon Dioxide 23
BUN 43 H
Creatinine 3.7 H
Glucose 126 H
Calcium 8.7
Vital Signs:
Vital Signs
Temp Pulse Resp BP Pulse Ox
98.6 F 79 20 157/87 92
05/13/25 07:00 05/13/25 07:00 05/13/25 07:00 05/13/25 07:00 05/13/25 07:00
I&O
05/12/25 05/13/25 05/14/25
06:59 06:59 06:59
Intake Total 1200 / 1200
Balance 1200 / 1200
[2025-05-13] MEDS: FEOSOL PO (09:45)
[2025-05-13] MEDS: HEPARIN SC (09:45)
[2025-05-13] MEDS: DELTASONE PO (09:45)
[2025-05-13] MEDS: VISBIOME PO (09:46)
[2025-05-13] MEDS: ZYLOPRIM PO (09:46)
[2025-05-13] MEDS: LEXAPRO PO (09:46)
--- NOTE | 2025-05-13 11:32 | W.PN.NEPH.PH ---
Today's Communication / Plan
-
hospice
Assessment/Plan
-
84 y/o female past medical history of diabetes mellitus, chronic kidney disease, hypertension, chronic pain syndrome, chronic anemia, metastatic melanoma and recent hospitalization for acute hypoxia secondary to bilateral pneumonia who was sent from
[facility] local [facility] due to hypoxia. Patient was hospitalized from May 01 to May 06 with hypoxia secondary to bilateral pneumonia. That hospitalization was complicated by hospital acquired delirium as as worsening anemia requiring blood
transfusion. Today patient was noted to be hypoxia for staff at the facility with pulse ox 70% on RA, and she was sent to the emergency department for evaluation.
Consult for acute kidney injury creatinine of 2.5 with a baseline of 1.3
Impression.
Acute on chronic kidney disease stage III
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
Diabetes
Chronic anemia
Pneumonia?
pelvic mass on CT
bilateral hydronephrosis
Plan
Hold torsemide
Hold SGLT2 inhibitor
family elected hospice given what appears to be a primary primary teacher malignancy resulting in obstructive uropathy.
-
-
Date of Service: May 13, 2025
CC / HPI / ROS
-
Chief Complaint:
Hypoxia
History of Present Illness:
Metastatic cancer with hypoxia presents with acute on chronic kidney disease
Hgb stable 8.3
SPIKE/Cr higher at 3.7
Na up to 147
BP high stable
Review of Systems:
unable to converse
no fever
nonoliguric
Labs
-
Labs:
WBC 12.7 10^3/uL (4.8-10.8) H 05/13/25 06:53
RBC 3.72 10^6/uL (4.20-5.40) L 05/13/25 06:53
Hgb 8.3 g/dL (12.0-16.0) L 05/13/25 06:53
Hct 30.0 % (37.0-47.0) L 05/13/25 06:53
Plt Count 377 10^3/uL (130-400) 05/13/25 06:53
Sodium 147 mmol/L (135-145) H 05/13/25 06:53
Potassium 4.3 mmol/L (3.5-5.1) 05/13/25 06:53
Chloride 119 mmol/L (98-107) H 05/13/25 06:53
Carbon Dioxide 23 mmol/L (22-30) 05/13/25 06:53
BUN 43 mg/dl (7-17) H 05/13/25 06:53
Creatinine 3.7 mg/dL (0.6-1.0) H 05/13/25 06:53
eGFR 11.70 05/13/25 06:53
Glucose 126 mg/dl (70-99) H 05/13/25 06:53
Calcium 8.7 mg/dl (8.4-10.2) 05/13/25 06:53
Yqf-N-Ddclpsnfmpc Pept 2070 pg/ml 05/09/25 09:16
Albumin 3.0 g/dl (3.5-5.0) L 05/09/25 08:43
Physical Exam
-
Vital Signs:
Vital Signs
Temp Pulse Resp BP Pulse Ox
98.6 F 79 20 157/87 92
05/13/25 07:00 05/13/25 07:00 05/13/25 07:00 05/13/25 07:00 05/13/25 07:00
Cardiovascular:: Regular rate and rhythm
Respiratory:: Bilateral: Coarse
Lung Excursion:: Normal
Abdomen:: Nontender, Soft and Tender
Bowel Sounds:: Normal
Extremity Edema:: None: Bilateral:
[2025-05-13 12:05] LABS: Glucose - Point of Care 121 mg/dl (70-99)
--- NOTE | 2025-05-13 12:13 | HOSPNOTE ---
Addendum entered by Rand Cook RN 05/13/25 13:59:
Confirmation confirmed with CM that [facility] can accept patient back tomorrow on hospice services. Transport being arranged for 11 am. Once back to [place], Hospice will admit patient onto hospice. left for daughter/ANH Arevalo with this updated
information. Will email consents for her to sign tomorrow morning as discussed yesterday. As of yesterday both daughters were in agreement with hospice and knew we were aiming for Wednesday. CM and Attending updated.
Original Note:
Hospice continues to follow. Plan is for patient to return to [facility] with Hospice. Awaiting confirmation from that [facility] can accept patient back on 05/14 with hospice services. Family is in agreement. More information to follow. CM and
Attending updated.
--- NOTE | 2025-05-13 13:48 | W.PN.UPDATE ---
Update Note
Progress Note Update
Discharge diagnosis:
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
Pulmonary nodules concerning for metastatic disease
History of metastatic melanoma status post Keytruda
Transient hypoxia
Acute kidney injury superimposed on stage IIIb chronic kidney disease
Cognitive impairment with probable dementia
Sundowning in the hospital
Type 2 diabetes
Essential hypertension
Hyperlipidemia
Hypothyroidism
Anemia of chronic disease
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
Depression
Obesity due to excess calories
Consults: Nephrology
CT Chest:
Innumerable bilateral pulmonary nodules, index lesions, as noted above. In light of the clinical history, findings most likely represent metastatic disease.
Possible small bilateral retrocrural lymph nodes.
CT abdomen and pelvis:
Small bilateral pleural effusions. Bilateral pulmonary nodules in the visualized lower chest, very likely pulmonary metastatic disease.
Large lobulated mass within the pelvis as described, with evidence for neoplastic lymphadenopathy within the abdomen, pelvis, and lower chest. Suggestion of small peritoneal implants in the right upper quadrant and the left upper quadrant.
Findings are highly concerning for pelvic neoplasia/malignancy. Uterine/endometrial carcinoma would be the leading consideration, with major differential considerations of ovarian/adnexal malignancy with involvement of the uterus.
Mild to moderate bilateral pelvicalyceal dilation. Mild to moderate left perinephric edema. Findings suggest at least compression and possibly invasion of the ureters bilaterally, including edema from obstructive uropathy on the left.
Subcutaneous edema is present, greater in the left lateral flank compared to the right.
Bony degenerative changes. No evidence for bony metastatic disease by CT.
Hospital course:
84-year-old female with a past medical history of diabetes mellitus, chronic kidney disease, hypertension, chronic pain syndrome, chronic anemia, metastatic melanoma and recent hospitalization for acute hypoxia secondary to bilateral pneumonia who
was admitted for acute kidney injury superimposed on stage IIIb chronic kidney disease, lethargy, and transient hypoxia. Patient was seen in conjunction with nephrology, who suspects she has glomerulonephritis. CT of the abdomen and pelvis shows a
new pelvic mass concerning for endometrial carcinoma. CT of the chest shows innumerable pulmonary nodules concerning for metastatic disease. Her mentation waxed and waned, she tended to moan in pain. Patient's poor prognosis was relayed to her
daughters. Daughters agreed to transition the patient to hospice. Patient is discharged to [facility] on hospice.
Disposition: [facility] on hospice
Discharge planning: Required 41 minutes
--- NOTE | 2025-05-13 14:47 | PTCARENOTE ---
Pt hasn't urinated today. Just bladder scanned her and got only 164ml. She's had IV fluids running. The IV site is leaking. Let Dr know. IV fluids DC'd, site dc'd. No new site placed.
[2025-05-13 15:00] VITALS: BP 171/92
--- NOTE | 2025-05-13 15:59 | CM ---
Patient from [facility] with Dx Pelvic mass, Cognitive Impairment with probable dementia. Room air. Receiving Duragesic Patch.
Per nurse; bedrest.
Spoke with Marciano Davis [facility]; they are able to accept the patient tomorrow with Hospice. Provided info that daughter has questions whether patient returning to same room with roommate - Susan confirms that the patient will be in the same
room with roommate as she is in LTC. The ph for report [phone], fax [phone].
[address] Tello, Hospice; provided update that [facility] has accepted for tomorrow and agrees with 11am ambulance transport time.
Spoke with patient's daughter ANH Arevalo;
she agrees with her mother returning to [facility] tomorrow with Hospice by ambulance at 11am. Daughter will not be here at hospital before d/c, and will see her mother at SNF. Daughter had questions about which room patient would be returning
to at [facility] - informed her that [facility] was asked to contact her about that. IMM completed and copy sent to daughter via email: [email or web address]
OOH DNR on chart for MD signature.
Plan [facility] tomorrow 11am by ambulance, with Hospice.
[2025-05-13] MEDS: D5/0.9% SODIUM CHLORIDE IV (16:28)
[2025-05-13 16:54] LABS: Glucose - Point of Care 122 mg/dl (70-99)
[2025-05-13] MEDS: HEPARIN 5000 UNITS SC ×2 (18:13→23:03)
[2025-05-13] MEDS: SEROQUEL 25 MG PO (18:14)
[2025-05-13] MEDS: LIPITOR PO (21:36)
[2025-05-13] MEDS: TOPROL XL PO (21:36)
[2025-05-13] MEDS: SEROQUEL PO (21:36)
[2025-05-13 21:38] LABS: Glucose - Point of Care 92 mg/dl (70-99)
[2025-05-13] MEDS: MORPHINE SULFATE 4 MG IV (23:05)
[2025-05-13 23:16] VITALS: BP 151/73
[2025-05-14] MEDS: SYNTHROID PO (05:05)
[2025-05-14 05:52] VITALS: BMI 37.5
[2025-05-14 07:16] LABS: Glucose - Point of Care 94 mg/dl (70-99)
[2025-05-14 07:49] VITALS: BP 163/77
[2025-05-14] MEDS: MORPHINE SULFATE 4 MG IV (09:45)
[2025-05-14] MEDS: FEOSOL PO (09:47)
[2025-05-14] MEDS: DELTASONE PO (09:47)
[2025-05-14] MEDS: ZYLOPRIM PO (09:47)
[2025-05-14] MEDS: LEXAPRO PO (09:47)
[2025-05-14] MEDS: VISBIOME PO (09:47)
[2025-05-14] MEDS: HEPARIN 5000 UNITS SC (09:47)
--- NOTE | 2025-05-14 10:02 | W.PN.HOSP.TC ---
Today's Communication/Plan
-
dc
Assessment / Plan
Assessment / Plan
84 y/o female past medical history of diabetes mellitus, chronic kidney disease, hypertension, chronic pain syndrome, chronic anemia, metastatic melanoma and recent hospitalization for acute hypoxia secondary to bilateral pneumonia who was sent from
a local snf due to hypoxia. Patient was hospitalized from May 01 to May 06 with hypoxia secondary to bilateral pneumonia. That hospitalization was complicated by hospital acquired delirium as as worsening anemia requiring blood
transfusion. Patient was noted to be hypoxia for staff at the facility with pulse ox 70% on RA, and she was sent to the emergency department for evaluation. Triage note indicates pulse ox was 93% on RA upon arrival to the emergency department. Upon
my evaluation patient is lethargic only answering a few questions with one word answers. Futher test revieled pelvic mass, concerning for endometrial carcinoma with metastatic lung disease. As per discussion with family - decision made for hospice
care and patient accepted to continue in [place] with hospice approach. Discharge was delayed due to staffing in accepting facility
A/P:
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
supplemental O2
#Pelvic mass suspecting endometrial carcinoma
#compression and possibly invasion of the ureters bilaterally, including edema from obstructive uropathy on the left
#Metastatic lymphadenopathy
Hospice care
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
hold diuretic, nephro followed
#Advanced dementia, unspecified with delirium
#Essential HTN
#HLD
#Hypothyroidism
#Chronic pain with chronic opioid dependency
#Anemia of chronic disease
hospice care
DNR/DNR
DVT ppx hep
I have spent at least 38min reviewing chart, test results and providing direct patient care
Anticipated Discharge: Today
Subjective/Interval History
-
Date of Service: May 14, 2025
Objective Data
-
Vital Signs:
Vital Signs
Temp Pulse Resp BP Pulse Ox
98.0 F 91 18 163/77 92
05/14/25 07:49 05/14/25 07:49 05/14/25 07:49 05/14/25 07:49 05/14/25 07:49
I&O
05/13/25 05/14/25 05/15/25
06:59 06:59 06:59
Intake Total 0 / 0
Balance 0 / 0
Review of Systems
-
Unable to obtain full review of systems at this time due to: Dementia and Acuity
Physical Exam
-
General: No Apparent Distress
Cardiac: Regular Rhythm
Psych: Calm and Apparent Dementia
--- NOTE | 2025-05-14 10:03 | W.DCSUMMARY ---
Discharge Summary
Discharge Data
Date of Admission: 05/09/25
Date of Discharge: 05/14/25
-
Pending Results: No
Hospital Course
84 y/o female past medical history of diabetes mellitus, chronic kidney disease, hypertension, chronic pain syndrome, chronic anemia, metastatic melanoma and recent hospitalization for acute hypoxia secondary to bilateral pneumonia who was sent from
a local custodial due to hypoxia. Patient was hospitalized from May 01 to May 06 with hypoxia secondary to bilateral pneumonia. That hospitalization was complicated by hospital acquired delirium as as worsening anemia requiring blood
transfusion. Patient was noted to be hypoxia for staff at the facility with pulse ox 70% on RA, and she was sent to the emergency department for evaluation. Triage note indicates pulse ox was 93% on RA upon arrival to the emergency department. Upon
my evaluation patient is lethargic only answering a few questions with one word answers. Futher test revieled pelvic mass, concerning for endometrial carcinoma with metastatic lung disease. As per discussion with family - decision made for hospice
care and patient accepted to continue in [place] with hospice approach. Discharge was delayed due to staffing in accepting facility
I have spent at least 38min reviewing chart, test results and providing direct patient care
Patient was managed for:
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
#Pelvic mass suspecting endometrial carcinoma
#compression and possibly invasion of the ureters bilaterally, including edema from obstructive uropathy on the left
#Metastatic lymphadenopathy
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
#Advanced dementia, unspecified with delirium
#Essential HTN
#HLD
#Hypothyroidism
#Chronic pain with chronic opioid dependency
#Anemia of chronic disease
Discharge Plan
-
Patient Disposition: [facility]/SNF
Discharge Diagnosis/Procedures: Lethargy, acute kidney injury, new uterine mass, metastatic pulmonary nodules, history of melanoma
Condition: Serious
Diet: Regular
Activity: As tolerated
Other Services: Hospice
Referrals:
Kyler Mohan MD [Family Provider, Family Practice] - in one week
Prescriptions:
New
quetiapine 25 mg Tablet
25 mg PO QPM Qty: 0 0RF
quetiapine 25 mg Tablet
50 mg PO HS Qty: 30 0RF
Continued
metoprolol succinate 100 MG tablet extended release 24 hr
100 mg PO HS
mineral oil-hydrophil petrolat Ointment
1 applic TOPICAL BID
Fleet Enema 19-7 gram/118 mL Enema
118 ml NM DAILYPRN PRN (Reason: if no bm x 4 days)
nystatin 100,000 unit/gram Powder
1 applic TOPICAL BID
ipratropium-albuterol 0.5 mg-3 mg(2.5 mg base)/3 mL Solution For Nebulization
3 ml INHALATION R Q6HPRN PRN (Reason: sob/wheezing)
ondansetron HCl 4 mg Tablet
4 mg PO Q6HPRN PRN (Reason: nausea/vomiting)
acetaminophen [Tylenol Extra Strength] 500 mg Tablet
1,000 mg PO Q8HPRN PRN (Reason: mild pain)
escitalopram oxalate [Lexapro] 5 mg Tablet
5 mg PO DAILY
prednisone 10 mg tablet
10 mg PO DAILY
magnesium hydroxide [Milk of Magnesia] 400 mg/5 mL Suspension
30 ml PO HSPRN PRN (Reason: if no BM x 2 days)
bisacodyl [Dulcolax (bisacodyl)] 10 mg Suppository
10 mg NM Q72H PRN (Reason: if no BM x 3 days)
fentanyl 12 mcg/hr Patch 72 Hour
1 patch TRANSDERMAL Q72H
oxycodone 5 MG tablet
5 mg PO Q4HPRN PRN (Reason: severe pain)
hydrocortisone acetate 1 % Cream
1 applic topical Q6HPRN PRN (Reason: apply to rectum)
lidocaine 4 % Cream
1 applic TOPICAL Q4HPRN PRN (Reason: apply to right hip)
lidocaine 5 % Ointment
1 applic TOPICAL TID
Discontinued
atorvastatin 20 MG tablet
20 mg PO HS
allopurinol 100 MG tablet
100 mg PO DAILY
gabapentin 300 MG capsule
300 mg PO DAILY
melatonin 3 MG tablet
6 mg PO HS
torsemide 20 mg Tablet
40 mg PO DAILY
famotidine 20 mg Tablet
20 mg PO DAILY
Jardiance 10 mg Tablet
10 mg PO DAILY
loperamide 2 mg Capsule
2 mg PO [id number] PRN (Reason: diarrhea)
levothyroxine [Levoxyl] 88 mcg Tablet
88 mcg PO DAILY
potassium chloride 20 mEq tablet,ER particles/crystals
20 meq PO DAILY
gabapentin 600 mg Tablet
600 mg PO HS
amoxicillin-pot clavulanate 500-125 mg Tablet
1 tab PO Q8H
Patient Comments:
05/09/2025, start date: 05/06/2025; end date: 05/11/2025.
insulin glargine [Lantus Solostar U-100 Insulin] 100 unit/mL (3 mL) Insulin Pen
8 unit SC HS
Discharge Date and Time
Print Language: TURKISH
--- NOTE | 2025-05-14 11:49 | CM ---
Patient cleared for discharge back to [facility] with initiation of hospice services. Ambulance transport at 11:00AM.
[2025-05-14 23:27] LABS: Serine Protease-3, IgG 0 AU/mL (0-19)
[2025-05-15 00:08] LABS: ANA, IgG Reflex to HEp-2 None Detected (None Detected)
== END 2025-05-14 11:41 | DRG 683 ==
LOC: 4 WEST ACU 14:29
PROVIDERS: Family Medicine; Physician Assistant; Physician Assistant Medical; Specialist; ADMITTING PHYSICIAN Hospitalist; ATTENDING PHYSICIAN Internal Medicine; CONSULT PHYSICIAN Internal Medicine Nephrology; EMERGENCY PHYSICIAN Emergency Medicine; FAMILY PHYSICIAN Family Medicine
DX: N17.9 Acute kidney failure, unspecified (principal); C77.9 Secondary and unspecified malignant neoplasm of lymph node, unspecified; F11.20 Opioid dependence, uncomplicated; F03.93 Unspecified dementia, unspecified severity, with mood disturbance; F05 Delirium due to known physiological condition; C78.00 Secondary malignant neoplasm of unspecified lung; E66.2 Morbid (severe) obesity with alveolar hypoventilation; I12.9 Hypertensive chronic kidney disease with stage 1 through stage 4 chronic kidney disease, or unspecified chronic kidney disease; N18.32 Chronic kidney disease, stage 3b; E03.9 Hypothyroidism, unspecified; G89.4 Chronic pain syndrome; F32.A Depression, unspecified; D63.8 Anemia in other chronic diseases classified elsewhere; C43.9 Malignant melanoma of skin, unspecified; Z51.5 Encounter for palliative care; Z66 Do not resuscitate; Z68.37 Body mass index [BMI] 37.0-37.9, adult
CPT/HCPCS: 36415; 71046; 71250; 74176; 80048; 80053; 81003; 81015; 82805; 82962; 83516; 83735; 83880; 84484; 85025; 85027; 86038; 86160; 87070; 87086; 93005; 94762; 96374; 99285